=== PATIENT | female | born 1965 | race Caucasian/White ===

== ENCOUNTER 2017-01-16 15:45 | Emergency (ER) | payer OTHER ==
[~2017-01-16 15:45] MED LIST: CHLO10CA2 PO; FOLI1TAB4 PO; LOTR15T TOPICAL; PERC10TA27 PO; VITA100T2 PO; ZITH250T PO
[2017-01-16 17:24] VITALS: BP 147/76; PULSE 94; RESP 18; TEMP 100.4; O2SAT 95
[2017-01-16] MEDS ORDERED: SODIUM CHLOR 0.9% 1000 ML INJ 1,000 ML IV ONE (17:31)
[2017-01-16] MEDS ORDERED: SODIUM CHLOR 0.9% 1000 ML INJ 800 ML IV ONE (17:31)
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
[2017-01-16 17:36] VITALS: O2SAT 94
[2017-01-16] MEDS ORDERED: IBUPROFEN 800 MG TAB PO ONE (17:45)
--- NOTE | 2017-01-16 17:56 | RADRPT ---
EXAM DATE/TIME: 01/16/2017 17:28 [facility] COMPARISON: CHEST SINGLE AP, June 01, 2013, 15:42. INDICATIONS : Short of breath MEDICAL HISTORY : None. SURGICAL HISTORY : None. ENCOUNTER: Initial ACUITY: 1 day PAIN SCORE: 0/10 LOCATION: chest FINDINGS: Single AP view of the chest. Hazy right lower lung opacity suggesting atelectasis versus mild consoli dation. Mild central pulmonary vasculature prominence. Cardiomediastinal silhouette within normal martinez its. No evidence of pleural effusion or pneumothorax. CONCLUSION: Right lower lobe atelectasis versus mild consolidation. Mild pulmonary vascular congestio n. Quentin Genao MD on January 16, 2017 at 17:53 Board Certified Radiologist. This report was verified electronically.
[2017-01-16 18:02] LABS: BASOPHIL % 0.3 % (0.0-2.0); EOSINOPHIL % 0.1 % (0.0-4.0); HEMATOCRIT 34.1 % (35.0-46.0); HEMO FLAGS DIFF FINAL; LYMPHOCYTE # 1.1 TH/MM3 (1.0-4.8); MEAN CORPUSCULAR HEMOGLOBIN 32.7 PG (27.0-34.0); MEAN CORPUSCULAR HGB CONC 33.7 % (32.0-36.0); MONO % 8.2 % (0.0-8.0); NEUT % 81.4 % (16.0-70.0); PLATELET COUNT 191 TH/MM3 (150-450); RED BLOOD COUNT 3.52 MIL/MM3 (4.00-5.30); RED CELL DISTRIBUTION WIDTH 12.8 % (11.6-17.2); WHITE BLOOD COUNT 11.1 TH/MM3 (4.0-11.0)
[2017-01-16 18:04] LABS: BLOOD, URINE NEG (NEG); COMMENT (UR) CULT NOT INDICATED; CULTURE IF INDICATED CULT NOT INDICATED; GLUCOSE,URINE NEG (NEG); KETONE, URINE NEG (NEG); NITRITE,URINE NEG (NEG); PH, URINE 5.5 (5.0-8.5); SQUAMOUS EPITHELIAL CELL URINE <1 /hpf (0-5); URINE COLOR YELLOW (YELLW/STRAW)
[2017-01-16 18:06] LABS: APTT (PATIENT) 32.7 SEC (24.3-30.1); PROTHROMBIN TIME - PATIENT 11.1 SEC (9.8-11.6)
[2017-01-16 18:15] LABS: ALT (GPT) 62 U/L (10-53); ANION GAP 8 MEQ/L (5-15); AST (GOT) 57 U/L (15-37); BICARBONATE 25.4 MEQ/L (21.0-32.0); BLOOD UREA NITROGEN 6 MG/DL (7-18); CHLORIDE 102 MEQ/L (98-107); GLOMERULAR FILTRATION RATE 108 ML/MIN (>89); MAGNESIUM 1.9 MG/DL (1.5-2.5); POTASSIUM 3.8 MEQ/L (3.5-5.1); SODIUM (NA) 135 MEQ/L (136-145)
[2017-01-16 18:20] LABS: ALKALINE PHOSPHATASE 79 U/L (45-117); TOTAL BILIRUBIN ADULT 0.5 MG/DL (0.2-1.0)
[2017-01-16 18:25] LABS: CREATINE KINASE 73 U/L (26-192)
[2017-01-16] MEDS ORDERED: methylPREDNISolone SOD SUCC 125 MG/2 ML VIAL IV PUSH ONE (18:45)
[2017-01-16] MEDS ORDERED: RESP: ALBUTEROL 2.5 MG/IPRATROPIUM 0.5 MG NEB (SCH) NEB ONE (18:45)
[2017-01-16 19:16] VITALS: BP 118/67; TEMP 98.8
[2017-01-16] MEDS ORDERED: PROM25TA5 PO (19:17)
[2017-01-16] MEDS ORDERED: ZITHTAB PO (19:17)
[2017-01-16] MEDS ORDERED: PRED50 PO (19:17)
[2017-01-16] MEDS ORDERED: ALBUAER3 INH (19:17)
--- NOTE | 2017-01-17 16:57 | EKG ---
Date Performed: 01/16/2017 Time Performed: 17:53:07 PTAGE: 51 years EKG: Sinus rhythm NONSPECIFIC T-WAVE ABNORMALITY BORDERLINE ECG Compared to prior tracing no significant change PREVIOUS TRACING : 06/08/2013 05.19 DOCTOR: Helen Burgos Interpretating Date/Time 01/17/2017 16:55:51
== END 2017-01-16 19:31 | disposition home or self-care (01) ==
LOC: NEPE 15:45
DX: J18.1 Lobar pneumonia, unspecified organism (principal); R11.2 Nausea with vomiting, unspecified; F17.210 Nicotine dependence, cigarettes, uncomplicated; R94.31 Abnormal electrocardiogram [ECG] [EKG]
CPT/HCPCS: 71010; 80053; 81001; 82550; 83690; 83735; 84484; 85025; 85610; 85730; 87040; 87804; 93005; 94664; 96361; 96374; 99284; J2930; J7030

== ENCOUNTER 2017-01-31 12:27 | Emergency (ER) | payer OTHER ==
[~2017-01-31] VITALS: Ht 177.8 cm; Wt 84.0 kg
[~2017-01-31 12:27] MED LIST changes: +ALBUAER3 INH; +PRED50 PO; +PROM25TA5 PO; +ZITHTAB PO
[2017-01-31 12:45] VITALS: BP 216/127; PULSE 70; RESP 24; TEMP 97.8; O2SAT 100
--- NOTE | 2017-01-31 12:57 | PD ---
Physical Exam Date Seen by Provider: Jan 31, 2017 Time Seen by Provider: 12:55 Narrative 51 year old female presents to the emergency department for evaluation of abdominal pain since 4am. Patient was seen this morning at [facility]. She has not yet filled her prescriptions. Patient denies any prior abdominal history. Vital signs reviewed. Patient awaiting bed placement. Data Data Last Documented VS Vital Signs Date Time Temp Pulse Resp B/P Pulse Ox O2 Delivery O2 Flow Rate FiO2 01/31/17 12:45 97.8 70 24 216/[address] [facility] Supervised Visit with SYBIL: Naila Pandey Jan 31, 2017 12:57
[2017-01-31] MEDS ORDERED: HYDROmorphone HCL PF 1 MG/ML VIAL IV PUSH ONE (13:15)
[2017-01-31] MEDS ORDERED: ONDANSETRON HCL 4 MG/2 ML VIAL IV PUSH ONE (13:15)
[2017-01-31] MEDS ORDERED: SODIUM CHLOR 0.9% 1000 ML INJ 1,000 ML IV ONE (13:15)
[2017-01-31 13:49] LABS: AUTOMATED NEUTROPHIL # 4.4 TH/MM3 (1.8-7.7); BASOPHIL % 0.3 % (0.0-2.0); HEMO FLAGS DIFF FINAL; LYMPH % 14.9 % (9.0-44.0); LYMPHOCYTE # 0.9 TH/MM3 (1.0-4.8); MEAN CELL VOLUME 98.1 FL (80.0-100.0); MEAN CORPUSCULAR HEMOGLOBIN 33.1 PG (27.0-34.0); MEAN CORPUSCULAR HGB CONC 33.8 % (32.0-36.0); MONO % 7.2 % (0.0-8.0); NEUT % 77.6 % (16.0-70.0); PLATELET COUNT 222 TH/MM3 (150-450); RED BLOOD COUNT 4.19 MIL/MM3 (4.00-5.30); RED CELL DISTRIBUTION WIDTH 13.5 % (11.6-17.2); WHITE BLOOD COUNT 5.7 TH/MM3 (4.0-11.0)
[2017-01-31 14:00] VITALS: BP 150/82; PULSE 86; RESP 18; TEMP 97.8; O2SAT 98
[2017-01-31 14:04] LABS: ANION GAP 5 MEQ/L (5-15); AST (GOT) 86 U/L (15-37); BICARBONATE 29.1 MEQ/L (21.0-32.0); BLOOD UREA NITROGEN 14 MG/DL (7-18); CHLORIDE 106 MEQ/L (98-107); GLOMERULAR FILTRATION RATE 71 ML/MIN (>89); POTASSIUM 3.9 MEQ/L (3.5-5.1); SODIUM (NA) 140 MEQ/L (136-145)
[2017-01-31 14:07] LABS: ALKALINE PHOSPHATASE 81 U/L (45-117); ALT (GPT) 73 U/L (10-53); TOTAL BILIRUBIN ADULT 0.6 MG/DL (0.2-1.0)
[2017-01-31] MEDS ORDERED: ATROPINE/SCOPOLAM/HYOSCYAM/PB ELIXIR 10 ML CUP PO ONE (15:45)
[2017-01-31] MEDS ORDERED: ALUMINUM/MAGNESIUM/SIMETH 30 ML CUP PO ONE (15:45)
[2017-01-31] MEDS ORDERED: LIDOCAINE VISCOUS 2% SOLN 15 ML UDC SWISH-SWAL ONE (15:45)
--- NOTE | 2017-01-31 16:27 | RADRPT ---
EXAM DATE/TIME: 01/31/2017 16:03 [facility] COMPARISON: No previous studies available for comparison. INDICATIONS : Abdominal pain with vomiting. ORAL CONTRAST: No oral contrast ingested. RADIATION DOSE: 9.96 CTDIvol (mGy) MEDICAL HISTORY : None SURGICAL HISTORY : Appendectomy. Right hip sx. ENCOUNTER: Initial ACUITY: 1 day PAIN SCALE: 10/10 LOCATION: Bilateral upper quadrant TECHNIQUE: Volumetric scanning of the abdomen and pelvis was performed. Using automated exposure control and ad justment of the mA and/or kV according to patient size, radiation dose was kept as low as reasonably achievable to obtain optimal diagnostic quality images. FINDINGS: LOWER LUNGS: The visualized lower lungs are clear. LIVER: Homogeneous density without lesion. There is no dilation of the biliary tree. No calcified gallston es. SPLEEN: Normal size without lesion. PANCREAS: Within normal limits. KIDNEYS: Normal in size and shape. There is no mass, stone, or hydronephrosis. ADRENAL GLANDS: Within normal limits. VASCULAR: There is no aortic aneurysm. BOWEL/MESENTERY: The stomach, small bowel, and colon demonstrate no acute abnormality. There is no free intraperitone al air or fluid. ABDOMINAL WALL: Within normal limits. RETROPERITONEUM: There is no lymphadenopathy. BLADDER: No wall thickening or mass. REPRODUCTIVE: Within normal limits. INGUINAL: There is no lymphadenopathy or hernia. MUSCULOSKELETAL: Within normal limits for patient age. CONCLUSION: No acute disease. Arnie Vasquez MD on January 31, 2017 at 16:23 Board Certified Radiologist. This report was verified electronically.
[2017-01-31] MEDS ORDERED: ZOFR4TAB3 SL (16:46)
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
[2017-01-31 17:15] VITALS: BP 148/77; TEMP 97.8
== END 2017-01-31 17:15 | disposition home or self-care (01) ==
LOC: NEPD 12:27
DX: K29.20 Alcoholic gastritis without bleeding (principal); R11.10 Vomiting, unspecified; F17.210 Nicotine dependence, cigarettes, uncomplicated
CPT/HCPCS: 74176; 80053; 83690; 85025; 96361; 96374; 96375; 99284; J1170; J2405; J7030

== ENCOUNTER 2017-01-31 18:11 | Inpatient (IN) | payer OTHER ==
[~2017-01-31] VITALS: Ht 177.8 cm; Wt 78.9 kg
[~2017-01-31 18:11] MED LIST changes: +ZOFR4TAB3 SL
[2017-01-31 18:14] VITALS: BP 224/131; PULSE 77; RESP 24; TEMP 97.9; O2SAT 100
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
[2017-01-31] MEDS ORDERED: SODIUM CHLOR 0.9% 1000 ML INJ 1,000 ML IV SCH (19:59)
[2017-01-31] MEDS ORDERED: THIAMINE INJ 100 MG in SODIUM CHLORIDE 0.9% INJ 100 ML IV ONE (20:00)
[2017-01-31] MEDS ORDERED: SODIUM CHLORIDE 0.9% FLUSH 10 ML FLUSH IVF PRN (20:00)
[2017-01-31] MEDS ORDERED: LORazepam 2 MG/ML VIAL ONE ×2 (20:04→20:20)
[2017-01-31] MEDS ORDERED: LORazepam 2 MG/ML VIAL IV PUSH ONE ×2 (20:30)
--- NOTE | 2017-01-31 20:36 | RADRPT ---
EXAM DATE/TIME: 01/31/2017 19:26 [facility] COMPARISON: CT ABDOMEN & PELVIS W/O CONTRAST, January 31, 2017, 16:03. INDICATIONS : Altered mental status. RADIATION DOSE: 36.57 CTDIvol (mGy) MEDICAL HISTORY : None SURGICAL HISTORY : None. ENCOUNTER: Initial ACUITY: 1 day PAIN SCALE: 0/10 LOCATION: cranial TECHNIQUE: Multiple contiguous axial images were obtained of the head. Using automated exposure control and adj ustment of the mA and/or kV according to patient size, radiation dose was kept as low as reasonably a chievable to obtain optimal diagnostic quality images. FINDINGS: CEREBRUM: The ventricles are normal for age. No evidence of midline shift, mass lesion, hemorrhage or acute in farction. No extra-axial fluid collections are seen. POSTERIOR FOSSA: The cerebellum and brainstem are intact. The 4th ventricle is midline. The cerebellopontine angle i s unremarkable. EXTRACRANIAL: The visualized portion of the orbits is intact. SKULL: The calvaria is intact. No evidence of skull fracture. CONCLUSION: Normal examination. Ezekiel Ashley MD on January 31, 2017 at 20:33 Board Certified Radiologist. This report was verified electronically.
[2017-01-31 20:41] VITALS: BP 160/93; PULSE 82; RESP 26; O2SAT 98
[2017-01-31 20:56] LABS: AUTOMATED NEUTROPHIL # 5.4 TH/MM3 (1.8-7.7); BASOPHIL % 0.2 % (0.0-2.0); HEMATOCRIT 43.6 % (35.0-46.0); HEMO FLAGS DIFF FINAL; LYMPH % 26.5 % (9.0-44.0); LYMPHOCYTE # 2.4 TH/MM3 (1.0-4.8); MEAN CELL VOLUME 100.5 FL (80.0-100.0); MEAN CORPUSCULAR HEMOGLOBIN 33.7 PG (27.0-34.0); MEAN CORPUSCULAR HGB CONC 33.5 % (32.0-36.0); MONO % 13.1 % (0.0-8.0); NEUT % 60.2 % (16.0-70.0); PLATELET COUNT 282 TH/MM3 (150-450); RED BLOOD COUNT 4.34 MIL/MM3 (4.00-5.30); RED CELL DISTRIBUTION WIDTH 14.2 % (11.6-17.2)
[2017-01-31 21:00] VITALS: BP 158/88; PULSE 92; RESP 18; O2SAT 100
[2017-01-31 21:09] LABS: AMPHETAMINE, URINE NEG (NEG); BARBITURATES, URINE NEG (NEG); COCAINE, URINE NEG (NEG)
[2017-01-31 21:10] LABS: BLOOD, URINE TRACE (NEG); GLUCOSE,URINE TRACE mg/dL (NEG); HYALINE CAST, URINE 2 /lpf (RARE); KETONE, URINE TRACE mg/dL (NEG); NITRITE,URINE NEG (NEG); PH, URINE 6.5 (5.0-8.5); URINE COLOR YELLOW (YELLW/STRAW)
[2017-01-31 21:11] LABS: APTT (PATIENT) 27.4 SEC (24.3-30.1); PROTHROMBIN TIME - PATIENT 10.9 SEC (9.8-11.6)
[2017-01-31 21:15] LABS: COMMENT (UR) CATH-CULT NOT IND; CULTURE IF INDICATED CATH CULTURE NOT IND
[2017-01-31 21:59] LABS: ACETAMINOPHEN LESS THAN 2.0 MCG/ML (10.0-30.0); ALKALINE PHOSPHATASE 84 U/L (45-117); ALT (GPT) 72 U/L (10-53); ANION GAP 11 MEQ/L (5-15); AST (GOT) 80 U/L (15-37); BICARBONATE 24.5 MEQ/L (21.0-32.0); BLOOD UREA NITROGEN 11 MG/DL (7-18); CHLORIDE 102 MEQ/L (98-107); GLOMERULAR FILTRATION RATE 54 ML/MIN (>89); POTASSIUM 4.1 MEQ/L (3.5-5.1); SODIUM (NA) 137 MEQ/L (136-145); TOTAL BILIRUBIN ADULT 0.5 MG/DL (0.2-1.0)
[2017-01-31 22:00] VITALS: PULSE 96; RESP 18; O2SAT 100
--- NOTE | 2017-01-31 23:03 | HHI.HP ---
HPI Service Critical Care Medicine Primary Care Physician No Primary Care Physician Admission Diagnosis Alcohol withdrawal seizure. Diagnosis: Chief Complaint: altered mental status Travel History International Travel<30 Days: No Contact w/Intl Traveler <30 Da: No Traveled to Known Affected Are: No History of Present Illness This is a 51yF who presented to the ED earlier in the day with abdominal pain and was diagnosed with alcoholic gastritis. She was discharged. She represents this evening with visual hallucinations. While she was in the emergency department getting worked up for this, she had a witnessed seizure event. It lasted maybe 30 seconds and subsided on its own. She was given Ativan IV. She did endorse to the emergency room physician that she has stopped drinking [address] head is normal. Her laboratory values are all reassuring. When I evaluated the patient, she is lying on her side, awake and alert, but is refusing to participate in the history. She will answer any of my questions. She does say she is not in pain. Critical-care medicine is consulted to evaluate and manage probable seizures associated with alcohol withdrawal. The remainder of the history was presented to me by the ER physician. Review of Systems ROS Limitations: Uncooperative, Refused Past Family Social History Allergies: Coded Allergies: No Known Allergies (Verified , 01/31/17) Past Medical History Patient will not participate in giving a past medical history. Per chart review : GERD Chronic knee and back pain Alcohol dependence Past Surgical History Patient will not participate in giving a past surgical history. Per chart review: Appendectomy Reported Medications Patient will not participate in giving a home medication list. Per chart review : Zofran Odt (Ondansetron Odt) 4 Mg Tab 4 Mg SL Q6HR PRN Percocet (Oxycodone-Acetaminophen) 10-325 mg Tab 1 Tab PO Q6H PRN Active Ordered Medications See MAR Family History The patient is not participating in my exam and will not provide a family history. It is unlikely to be contributory to her acute illness. Social History Patient refuses to participate in getting a social history. Per chart review: Drinks sixpack daily, one pack per day smoker Physical Exam Vital Signs Vital Signs Date Time Temp Pulse Resp B/P Pulse Ox O2 Delivery O2 Flow Rate FiO2 01/31/17 20:41 82 26 160/93 98 01/31/17 18:38 16 01/31/17 18:14 97.9 77 24 224/131 100 Room Air Physical Exam GENERAL: Middle-aged female, lying in bed on her side, in no acute distress. HEENT: Normocephalic. Atraumatic. Pupils equal, reactive, round, conjugate. Mucous membranes are moist. NECK: Trachea is midline. There is no JVD. CHEST: Unlabored. Equal chest rise. Clear to auscultation. CARDIOVASCULAR: Rate, regular rhythm. No appreciable murmurs ABDOMEN: Soft, nontender, nondistended. No guarding MUSCULOSKELETAL: Peripheral edema. Distal pulses 2+. NEUROLOGICAL: RASS -1. She clinically appears to protecting her airway. She is awake and will look at me when asked. Unfortunately, she is refusing to participate in my physical exam, and thus will not follow commands. She withdraws to pain. Laboratory Laboratory Tests Test 01/31/17 01/31/17 20:30 21:25 White Blood Count 9.0 Red Blood Count 4.34 Hemoglobin 14.6 Hematocrit 43.6 Mean Corpuscular Volume 100.5 Mean Corpuscular Hemoglobin 33.7 Mean Corpuscular Hemoglobin 33.5 Concent Red Cell Distribution Width 14.2 Platelet Count 282 Mean Platelet Volume 8.0 Neutrophils (%) (Auto) 60.2 Lymphocytes (%) (Auto) 26.5 Monocytes (%) (Auto) 13.1 Eosinophils (%) (Auto) 0.0 Basophils (%) (Auto) 0.2 Neutrophils # (Auto) 5.4 Lymphocytes # (Auto) 2.4 Monocytes # (Auto) 1.2 Eosinophils # (Auto) 0.0 Basophils # (Auto) 0.0 CBC Comment DIFF FINAL Differential Comment Prothrombin Time 10.9 Prothromb Time International 1.0 Ratio Activated Partial 27.4 Thromboplast Time Urine Color YELLOW Urine Turbidity CLEAR Urine pH 6.5 Urine Specific [place] 1.015 Urine Protein 100 Urine Glucose (UA) TRACE Urine Ketones TRACE Urine Occult Blood TRACE Urine Nitrite NEG Urine Bilirubin NEG Urine Urobilinogen LESS THAN 2.0 Urine Leukocyte Esterase NEG Urine RBC 1 Urine WBC 2 Urine Hyaline Casts 2 Microscopic Urinalysis Comment CATH-CULT NOT IND Urine Opiates Screen NEG Urine Barbiturates Screen NEG Urine Amphetamines Screen NEG Urine Benzodiazepines Screen NEG Urine Cocaine Screen NEG Urine Cannabinoids Screen NEG Sodium Level 137 Potassium Level 4.1 Chloride Level 102 Carbon Dioxide Level 24.5 Anion Gap 11 Blood Urea Nitrogen 11 Creatinine 1.08 Estimat Glomerular Filtration 54 Rate Random Glucose 120 Calcium Level 8.8 Total Bilirubin 0.5 Aspartate Amino Transf 80 (AST/SGOT) Alanine Aminotransferase 72 (ALT/SGPT) Alkaline Phosphatase 84 Ammonia 35 Total Protein 9.2 Albumin 3.7 Salicylates Level LESS THAN 1.7 Acetaminophen Level LESS THAN 2.0 Ethyl Alcohol Level LESS THAN 3 Result Diagram: 01/31/17202901/31/175 Imaging Last Impressions Head CT 01/31/17 0000 Signed Impressions: Service Date/Time: Tuesday, January 31, 2017 19:26 - CONCLUSION: Normal examination. Ezekiel Ashley MD Assessment and Plan Assessment and Plan Assessment: This is a 51-year-old female with recent history of abdominal pain diagnosed with alcoholic gastritis and now presents with altered mental status and seizures in the setting of acute alcohol withdrawal syndrome. I think given that the patient does not have any prior history of seizure, we will proceed with MRI and EEG. However, given the time course, this most likely is alcohol withdrawal seizures, and most likely will improve with reinstitution of benzodiazepines. We will monitor her closely in the intensive care unit and transition her to Librium and Ativan on [facility] protocol. Plan: 1. Seizures -- likely secondary to etoh withdraw -- ativan prn for seizures -- seizure precautions -- EEG -- MRI -- 01/31 CT head negative for acute disease 2. Alcohol Withdraw -- [facility] protocol -- Librium 50mg po q8h -- ativan prn 3. Alcohol Dependence -- iv thiamine and mvi -- withdraw treatment as above. 4. Alcoholic gastritis -- previously diagnosed. -- iv ppi. 5. Metabolic Encephalopathy -- ammonia level nominally elevated. will not add Lactulose at this time -- frequent neuro checks in the ICU. could likely downgrade to the floor tomorrow. -- nursing bedside swallow evaluation. if she passes, advance to clear liquid diet, then advance as tolerated. if she fails, NPO with formal swallow eval. SCDs, Lovenox, ppi for ppx. Dispo: admit to the ICU. if she stabilizes, could transfer to floor in the AM. consult hospitalists. Code Status Full Code Bg Grijalva MD Jan 31, 2017 23:03
[2017-01-31] MEDS ORDERED: POTASSIUM PHOSPHATE INJ 30 MMOL in SODIUM CHLOR 0.9% 250 ML INJ 250 ML IV PRN (23:15)
[2017-01-31] MEDS ORDERED: MAGNESIUM OXIDE 400 MG TAB PO PRN (23:15)
[2017-01-31] MEDS ORDERED: RESP: ALBUTEROL 2.5 MG/IPRATROPIUM 0.5 MG NEB (PRN) INH (23:15)
[2017-01-31] MEDS ORDERED: CHLORHEXIDINE GLUCONATE 2 % 1 PACK (2 CLOTHS) TOP PRN (23:15)
[2017-01-31] MEDS ORDERED: MAGNESIUM SULFATE INJ 2 GM in SODIUM CHLORIDE 0.9% INJ 96 ML IV PRN (23:15)
[2017-01-31] MEDS ORDERED: MULTIVITAMIN INJ 10 ML, THIAMINE INJ 100 MG, FOLIC ACID INJ 1 MG in SODIUM CHLOR 0.45% ... IV ONE (23:15)
[2017-01-31] MEDS ORDERED: FLUMAZENIL 0.5 MG/5 ML VIAL IV PUSH PRN (23:15)
[2017-01-31] MEDS ORDERED: LORazepam 2 MG/ML VIAL IV PUSH PRN ×4 (23:15)
[2017-01-31] MEDS ORDERED: MISCELLANEOUS NURSING INFORMATION XX SCH (23:15)
[2017-01-31] MEDS ORDERED: POTASSIUM PHOSPHATE MONOBASIC 500 MG TAB PO PRN (23:15)
[2017-01-31] MEDS ORDERED: POTASSIUM CHLOR 40 MEQ PREMIX 100 ML IV PRN ×2 (23:15)
[2017-01-31] MEDS ORDERED: POTASSIUM PHOSPHATE MONOBASIC 500 MG TAB PO/TUBE PRN (23:15)
[2017-01-31] MEDS ORDERED: MAGNESIUM SULFATE INJ 4 GM in SODIUM CHLORIDE 0.9% INJ 92 ML IV PRN (23:15)
[2017-01-31] MEDS ORDERED: POTASSIUM CHLOR 20 MEQ PREMIX 100 ML IV PRN (23:15)
[2017-01-31] MEDS ORDERED: SODIUM CHLORIDE 0.9% FLUSH 10 ML FLUSH IV FLUSH PRN ×2 (23:15)
[2017-01-31] MEDS ORDERED: DEXTROSE 50% IN WATER 50 ML VIAL(D50) IV PUSH PRN (23:15)
[2017-01-31] MEDS ORDERED: LORazepam 2 MG TAB PO PRN (23:15)
[2017-01-31] MEDS ORDERED: SODIUM PHOSPHATE INJ 30 MMOL in SODIUM CHLOR 0.9% 250 ML INJ 240 ML IV PRN (23:15)
[2017-01-31] MEDS: THIAMINE INJ 100 MG in SODIUM CHLORIDE 0.9% INJ 100 ML IV SCH (23:56)
[2017-02-01] VITALS (16 sets, daily range): BP systolic 90–189; BP diastolic 82–123; PULSE 77–104; RESP 12–20; TEMP 98.2–102; O2SAT 97–100
[2017-02-01] MEDS: THIAMINE INJ 100 MG in SODIUM CHLORIDE 0.9% INJ 100 ML IV SCH (00:41)
[2017-02-01] MEDS: ENOXAPARIN SODIUM 40 MG/0.4 ML SYRINGE SQ SCH ×2 (00:41→23:15)
[2017-02-01] MEDS: PANTOPRAZOLE SODIUM 40 MG VIAL IV PUSH SCH (00:48)
[2017-02-01] MEDS: INSULIN NovoLIN REGULAR SUPPLEMENTAL SCALE SQ SCH ×5 (03:00→21:00)
[2017-02-01] MEDS: chlordiazePOXIDE 25 MG CAP PO SCH ×4 (03:01→23:12)
[2017-02-01] MEDS: CHLORHEXIDINE GLUCONATE 2 % 1 PACK (2 CLOTHS) TOP SCH (03:13)
[2017-02-01] MEDS ORDERED: ACETAMINOPHEN 325 MG TAB PO PRN (03:15)
[2017-02-01] MEDS: SODIUM CHLOR 0.9% 1000 ML INJ 1,000 ML IV SCH ×3 (03:39→23:13)
[2017-02-01 05:10] LABS: HEMATOCRIT 41.9 % (35.0-46.0); MEAN CELL VOLUME 98.6 FL (80.0-100.0); MEAN CORPUSCULAR HEMOGLOBIN 33.1 PG (27.0-34.0); MEAN CORPUSCULAR HGB CONC 33.6 % (32.0-36.0); PLATELET COUNT 215 TH/MM3 (150-450); RED BLOOD COUNT 4.24 MIL/MM3 (4.00-5.30); RED CELL DISTRIBUTION WIDTH 14.1 % (11.6-17.2); REVIEW FLAG FINAL; WHITE BLOOD COUNT 8.7 TH/MM3 (4.0-11.0)
[2017-02-01 05:32] LABS: BICARBONATE 23.8 MEQ/L (21.0-32.0); POTASSIUM 3.3 MEQ/L (3.5-5.1)
[2017-02-01] MEDS ORDERED: SODIUM CHLORIDE 0.9% FLUSH 10 ML FLUSH IV FLUSH SCH (09:00)
[2017-02-01] MEDS: SODIUM CHLORIDE 0.9% FLUSH 10 ML FLUSH IV FLUSH SCH ×2 (09:00→21:07)
--- NOTE | 2017-02-01 09:01 | HHI.PR ---
Subjective Remarks in no acute distress. had a fever last night. no seizures over night. BP noted that was uncontrolled over night. d/w the RN. Objective Vitals Vital Signs Date Time Temp Pulse Resp B/P Pulse Ox O2 Delivery O2 Flow Rate FiO2 02/01/17 05:00 92 02/01/17 04:00 98.9 92 16 187/113 100 02/01/17 03:00 98 02/01/17 02:34 102.0 100 20 186/117 100 02/01/17 01:53 100.8 101 18 189/91 99 Room Air 02/01/17 01:15 100.6 02/01/17 00:26 148/82 02/01/17 00:00 104 18 99 01/31/17 22:00 96 18 100 01/31/17 21:00 92 18 158/88 100 01/31/17 20:41 82 26 160/93 98 01/31/17 18:38 16 01/31/17 18:14 97.9 77 24 224/131 100 Room Air I/O 01/31/17 01/31/17 01/31/17 02/01/17 02/01/17 02/01/17 07:00 15:00 23:00 07:00 15:00 23:00 Intake Total 1556 ml Output Total 850 ml Balance 706 ml Intake Oral 180 ml IV Total 1376 ml Output Urine Total 850 ml # Bowel Movements 0 Result Diagram: 02/01/17 0448 02/01/17 0448 Imaging Last Impressions Head CT 01/31/17 0000 Signed Impressions: Service Date/Time: Tuesday, January 31, 2017 19:26 - CONCLUSION: Normal examination. Ezekiel Ashley MD Objective Remarks GENERAL: This is a well-nourished, well-developed patient, in no apparent distress. Neck; no neck stiffness CARDIOVASCULAR: Regular rate and regular rhythm without murmurs, gallops, or rubs. RESPIRATORY: Clear to auscultation. Breath sounds equal bilaterally. No wheezes , rales, or rhonchi. GASTROINTESTINAL: Abdomen soft, non-tender, nondistended. Normal, active bowel sounds MUSCULOSKELETAL: Extremities without clubbing, cyanosis, or edema. NEURO: Alert & Oriented x4 to person, place, time, situation. Moves all ext x4 Procedures none Medications and IVs Current Medications Sodium Chloride 2 ml 2 ml UNSCH PRN IVF FLUSH AFTER USING IV ACCESS; Start at 20:00 Sodium Chloride 1,000 ml @ 1,000 mls/hr Q1H IV Last administered on 01/31/17 21:37; Start 01/31/17 at 19:59; Stop 01/31/17 at 20:58; Status DC Thiamine HCl/ Sodium Chloride (Thiamine Inj/NS Inj) 101 ml @ 100 mls/hr ONCE ONCE IV Last administered on 01/31/17 21:38; Start 01/31/17 at 20:00; Stop at 21:00; Status DC Lorazepam (Ativan Inj) 2 mg STK-MED ONCE .ROUTE ; Start 01/31/17 at 20:04; Stop 01/31/17 at 20:05; Status DC Lorazepam (Ativan Inj) 2 mg STK-MED ONCE .ROUTE ; Start 01/31/17 at 20:20; Stop 01/31/17 at 20:21; Status DC Lorazepam (Ativan Inj) 2 mg ONCE ONCE IV PUSH Last administered on 01/31/17 20:51; Start 01/31/17 at 20:30; Stop 01/31/17 at 20:34; Status DC Lorazepam (Ativan Inj) 2 mg ONCE ONCE IV PUSH Last administered on 01/31/17 20:52; Start 01/31/17 at 20:30; Stop 01/31/17 at 20:34; Status DC Magnesium Oxide 800 mg 800 mg UNSCH PRN PO For Magnesium 1.2 - 1.6 mg/dL; Start 01/31/17 at 23:15 Magnesium Sulfate 4 gm/Sodium Chloride 100 ml @ 50 mls/hr UNSCH PRN IV For Magnesium 0.9 - 1.1 mg/dL; Start 01/31/17 at 23:15 Magnesium Sulfate 2 gm/Sodium Chloride 100 ml @ 50 mls/hr UNSCH PRN IV For Magnesium 1.2 - 1.6 mg/dL; Start 01/31/17 at 23:15 Potassium Chloride 100 ml @ 50 mls/hr Q2H PRN IV For Potassium 2.8 - 3.2 mEq/L ; Start 01/31/17 at 23:15 Potassium Chloride 100 ml @ 50 mls/hr Q2H PRN IV For Potassium 3.3 - 3.5 mEq/L ; Start 01/31/17 at 23:15 Potassium Chloride 100 ml @ 50 mls/hr Q2H PRN IV For Potassium 2.8 - 3.2 mEq/L ; Start 01/31/17 at 23:15 Potassium Chloride (KCl 40 Meq Premix Inj) 100 ml @ 25 mls/hr UNSCH PRN IV For Potassium 3.3 - 3.5 mEq/L; Start 01/31/17 at 23:15 Potassium Phosphate (K-Phos) 2,000 mg Q4H PRN PO For Phosphorus < 2.5 mg/dL; Start 01/31/17 at 23:15 Potassium Phosphate 2000 mg 2,000 mg UNSCH PRN PO/TUBE SEE LABEL COMMENTS; Start 01/31/17 at 23:15 Potassium Phosphate 30 mmol/ Sodium Chloride 260 ml @ 42 mls/hr UNSCH PRN IV SEE LABEL COMMENTS; Start 01/31/17 at 23:15 Sodium Phosphate/ Sodium Chloride (Sodium Phosphate Inj/NS 250 ml Inj) 250 ml @ 42 mls/hr UNSCH PRN IV For Phosphorus < 2.5 mg/dL; Start 01/31/17 at 23:15 Dextrose (D50w (Vial) Inj) 25 ml UNSCH PRN IV PUSH HYPOGLYCEMIA-SEE COMMENTS; Start 01/31/17 at 23:15 Insulin Human Regular 1 1 ACHS AND 3AM SQ ; Start 02/01/17 at 03:00 Sodium Chloride (NS 1000 ml Inj) 1,000 ml @ 84 mls/hr [id number] IV Last administered on 02/01/17 03:39; Start 01/31/17 at 23:03 Sodium Chloride (NS Flush) 2 ml UNSCH PRN IV FLUSH FLUSH AFTER USING IV ACCESS ; Start 01/31/17 at 23:15 Sodium Chloride (NS Flush) 2 ml BID IV FLUSH ; Start 02/01/17 at 09:00 Ondansetron HCl (Zofran Inj) 4 mg Q6H PRN IV NAUSEA OR VOMITING; Start at 23:15 Albuterol/ Ipratropium (Duoneb Neb) 1 ampule Q2HR NEB PRN INH WHEEZING; Start 01/31/17 at 23:15 Enoxaparin Sodium (Lovenox Inj) 40 mg Q24H SQ Last administered on 02/01/17 00 :41; Start 01/31/17 at 23:15 Miscellaneous Information 1 Q361D XX ; Start 01/31/17 at 23:15 Chlorhexidine Gluconate (Chlorhexidine 2% Cloth) 3 pack Taper DAILY@04 TOP Last administered on 02/01/17 03:13; Start 02/01/17 at 04:00; Stop 01/28/18 at 03:59 Chlorhexidine Gluconate (Chlorhexidine 2% Cloth) 3 pack UNSCH PRN TOP HYGIENIC CARE; Start 01/31/17 at 23:15 Sodium Chloride (NS Flush) 2 ml UNSCH PRN IV FLUSH FLUSH AFTER USING IV ACCESS ; Start 01/31/17 at 23:15; Stop 01/31/17 at 23:24; Status DC Sodium Chloride (NS Flush) 2 ml BID IV FLUSH ; Start 02/01/17 at 09:00; Stop at 09:00; Status DC Flumazenil (Romazicon Inj) 0.2 mg Q1M PRN IV PUSH SEE LABEL COMMENTS; Start at 23:15 Lorazepam (Ativan) 1 mg Q4H PRN PO CIWA 8 - 10; Start 01/31/17 at 23:15 Lorazepam (Ativan Inj) 1 mg Q4H PRN IV PUSH CIWA 8 - 10 Last administered on 04:58; Start 01/31/17 at 23:15 Lorazepam (Ativan) 2 mg Q2H PRN PO CIWA 11-14; Start 01/31/17 at 23:15 Lorazepam (Ativan Inj) 2 mg Q2H PRN IV PUSH CIWA 11-14; Start 01/31/17 at 23:15 Lorazepam (Ativan Inj) 2 mg Q1H PRN IV PUSH CIWA 15-20; Start 01/31/17 at 23:15 Lorazepam (Ativan Inj) 2 mg Q15M PRN IV PUSH CIWA > 20; Start 01/31/17 at 23:15 Chlordiazepoxide 50 mg 50 mg Q8H PO Last administered on 02/01/17 03:01; Start 01/31/17 at 23:15 Thiamine HCl/ Sodium Chloride (Thiamine Inj/NS Inj) 101 ml @ 101 mls/hr Q24H IV Last administered on 02/01/17 00:41; Start 02/01/17 at 01:45; Stop at 02:44 Thiamine HCl 100 mg 100 mg DAILY PO ; Start 02/03/17 at 09:00 Multivitamins/ Thiamine HCl/ Folic Acid/Sodium Chloride (Mvi-12 Inj/ Thiamine Inj/ Folvite Inj/1/2 NS 500 ml Inj) 511.2 ml @ 125 mls/hr ONCE ONCE IV Last administered on 01/31/17 23:55; Start 01/31/17 at 23:15; Stop 02/01/17 at 03:20 ; Status DC Multivitamins (Theragran) 1 tab DAILY PO ; Start 02/02/17 at 09:00 Pantoprazole Sodium (Protonix Inj) 40 mg Q24H IV PUSH Last administered on 02/01 00:48; Start 02/01/17 at 00:45 Acetaminophen (Tylenol) 650 mg Q6H PRN PO pain 1-10 or fever; Start 02/01/17 at 03:15 A/P Assessment and Plan A/P 1. Seizures -- likely secondary to etoh withdrawal -- ativan prn for seizures -- seizure precautions -- EEG -- MRI -- 01/31 CT head negative for acute disease 2. Alcohol Withdrawal -- [facility] protocol -- Librium 50mg po q8h -- ativan prn 3. Alcohol Dependence -- iv thiamine and mvi -- withdrawal treatment as above. 4. Alcoholic gastritis -- previously diagnosed. -- iv ppi. 5. Metabolic Encephalopathy -- ammonia level nominally elevated. will not add Lactulose at this time -- continue neuro checks . 6- fever- likely due to alcohol withdrawal obtain the blood cultures. continue to monitor the temps. 7. elevated BP- likely due to alcohol withdrawal start clonidine prn- will monitor. 8- mild hypokalemia; replace as needed. SCDs, Lovenox, ppi for ppx. transfer to telemetry this evening if no further seizures and remains stable- pending MRI brain. d/w the Tereso Baker MD Feb 01, 2017 09:01
[2017-02-01] MEDS: cloNIDine HCL 0.1 MG TAB PO PRN (12:19)
--- NOTE | 2017-02-01 14:19 | EKG ---
Date Performed: 02/01/2017 Time Performed: 01:48:56 PTAGE: 51 years EKG: Sinus rhythm Since previous tracing, no significant change noted NORMAL ECG PREVIOUS TRACING : 01/16/2017 17.53 DOCTOR: Best Reed Interpretating Date/Time 02/01/2017 14:19:12
--- NOTE | 2017-02-01 19:03 | RADRPT ---
EXAM DATE/TIME: 02/01/2017 17:59 [place] COMPARISON: No previous studies available for comparison. INDICATIONS : Seizures. MEDICAL HISTORY : None. SURGICAL HISTORY : Appendectomy. ENCOUNTER: Initial ACUITY: 1 day PAIN SCORE: 0/10 LOCATION: cranial TECHNIQUE: Multiplanar, multisequence MRI of the brain was performed without contrast. FINDINGS: There is a focal area of slightly increased T2 signal abnormality in the left parietal lobe. This is not associated with any significant signal abnormality on the diffusion weighted images. No abnormali ty on the susceptibility weighted images. No hydrocephalus. No abnormal extra-axial fluid. CONCLUSION: 1. Nonspecific approximately 1 cm T2 signal abnormality in the left parietal lobe. Differential diagn osis includes remote injury or focal area of inflammatory change. Recommend further evaluation with p ostcontrast images. There is no abnormality on diffusion weighted images to suggest recent infarct. Esteban Martino MD on February 01, 2017 at 18:57 Board Certified Radiologist. This report was verified electronically.
[2017-02-01] MEDS: LORazepam 1 MG TAB PO PRN (23:12)
[2017-02-02] VITALS (11 sets, daily range): BP systolic 105–175; BP diastolic 71–111; PULSE 73–86; RESP 18–24; TEMP 97.8–99.1; O2SAT 94–98
[2017-02-02] MEDS: PANTOPRAZOLE SODIUM 40 MG VIAL IV PUSH SCH (00:27)
[2017-02-02] MEDS: THIAMINE INJ 100 MG in SODIUM CHLORIDE 0.9% INJ 100 ML IV SCH (01:47)
[2017-02-02] MEDS: INSULIN NovoLIN REGULAR SUPPLEMENTAL SCALE SQ SCH ×5 (03:00→20:18)
[2017-02-02] MEDS: CHLORHEXIDINE GLUCONATE 2 % 1 PACK (2 CLOTHS) TOP SCH (04:00)
--- NOTE | 2017-02-02 05:04 | MG ---
cc: ARLETTE FERNANDEZ MD Sex: F DATE OF STUDY: 02/01/2017 [id number] DATE OF : 1965 HISTORY: A 51 year-old with history of hallucinations, possible seizure. 8-9 Hz posterior rhythm, 10-30 microvolts with attenuation theta activity. Good EEG variability reactivity, however, moderate amount of myogenic artifact present, body movement artifact. Single lead EKG showing sinus rhythm. INTERPRETATION Normal EEG, however, moderate amount of myogenic and electrical artifact occurring at times. Clinical correlation. Arlette Fernandez MD MG/MEGAN /11:24 PM /3:58 AM
[2017-02-02] MEDS: ONDANSETRON HCL 4 MG/2 ML VIAL IV PRN (05:16)
[2017-02-02 05:25] LABS: HEMATOCRIT 41.6 % (35.0-46.0); MEAN CELL VOLUME 99.6 FL (80.0-100.0); MEAN CORPUSCULAR HEMOGLOBIN 32.8 PG (27.0-34.0); MEAN CORPUSCULAR HGB CONC 32.9 % (32.0-36.0); PLATELET COUNT 193 TH/MM3 (150-450); RED BLOOD COUNT 4.17 MIL/MM3 (4.00-5.30); RED CELL DISTRIBUTION WIDTH 13.6 % (11.6-17.2); REVIEW FLAG FINAL; WHITE BLOOD COUNT 4.6 TH/MM3 (4.0-11.0)
[2017-02-02 05:47] LABS: BICARBONATE 23.8 MEQ/L (21.0-32.0); POTASSIUM 3.1 MEQ/L (3.5-5.1)
[2017-02-02] MEDS: LORazepam 1 MG TAB PO PRN (06:20)
[2017-02-02] MEDS: SODIUM CHLORIDE 0.9% FLUSH 10 ML FLUSH IV FLUSH SCH ×2 (08:40→20:17)
[2017-02-02] MEDS: chlordiazePOXIDE 25 MG CAP PO SCH (08:40)
[2017-02-02] MEDS: cloNIDine HCL 0.1 MG TAB PO PRN (08:40)
[2017-02-02] MEDS: MULTIVITAMIN TAB PO SCH (08:40)
[2017-02-02] MEDS: POTASSIUM CHLOR 20 MEQ PREMIX 100 ML IV PRN ×3 (09:35→16:07)
--- NOTE | 2017-02-02 09:37 | HHI.PR ---
Subjective Remarks in no acute distress. has some headache and nausea. afebrile today. BP is better. no seizures overnight. d/w the RN. Objective Vitals Vital Signs Date Time Temp Pulse Resp B/P Pulse Ox O2 Delivery O2 Flow Rate FiO2 02/02/17 06:00 83 02/02/17 04:00 79 02/02/17 04:00 98.3 79 22 144/91 02/02/17 02:00 77 02/02/17 00:00 98.4 77 20 121/85 02/02/17 00:00 77 02/01/17 22:00 80 02/01/17 20:00 98.6 02/01/17 20:00 98.6 77 20 90/ 02/01/17 20:00 77 02/01/17 18:00 79 02/01/17 16:00 83 02/01/17 16:00 98.2 82 20 129/85 97 02/01/17 14:00 87 02/01/17 12:00 98.8 86 12 172/123 98 02/01/17 12:00 90 02/01/17 10:00 85 I/O 02/01/17 02/01/17 02/01/17 02/02/17 02/02/17 02/02/17 07:00 15:00 23:00 07:00 15:00 23:00 Intake Total 1556 ml 1214 ml 654 ml 943 ml Output Total 850 ml 2100 ml 500 ml Balance 706 ml -886 ml 654 ml 443 ml Intake Oral 180 ml 480 ml 300 ml 600 ml IV Total 1376 ml 734 ml 354 ml 343 ml Output Urine Total 850 ml 2100 ml 500 ml # Bowel Movements 0 1 Result Diagram: 02/02/17 0440 02/02/17 0440 Imaging Last Impressions Brain MRI 02/01/17 0000 Signed Impressions: Service Date/Time: Wednesday, February 01, 2017 17:59 - CONCLUSION: 1. Nonspecific approximately 1 cm T2 signal abnormality in the left parietal lobe. Differential diagnosis includes remote injury or focal area of inflammatory change. Recommend further evaluation with postcontrast images. There is no abnormality on diffusion weighted images to suggest recent infarct. Esteban Martino MD Head CT 01/31/17 0000 Signed Impressions: Service Date/Time: Thomas, January 31, 2017 19:26 - CONCLUSION: Normal examination. Ezekiel Ashley MD Objective Remarks GENERAL: This is a well-nourished, well-developed patient, in no apparent distress. Neck; no neck stiffness CARDIOVASCULAR: Regular rate and regular rhythm without murmurs, gallops, or rubs. RESPIRATORY: Clear to auscultation. Breath sounds equal bilaterally. No wheezes , rales, or rhonchi. GASTROINTESTINAL: Abdomen soft, non-tender, nondistended. Normal, active bowel sounds MUSCULOSKELETAL: Extremities without clubbing, cyanosis, or edema. NEURO: Alert & Oriented x4 to person, place, time, situation. Moves all ext x4 Procedures none Medications and IVs Current Medications Sodium Chloride 2 ml 2 ml UNSCH PRN IVF FLUSH AFTER USING IV ACCESS; Start at 20:00 Sodium Chloride 1,000 ml @ 1,000 mls/hr Q1H IV Last administered on 01/31/17 21:37; Start 01/31/17 at 19:59; Stop 01/31/17 at 20:58; Status DC Thiamine HCl/ Sodium Chloride (Thiamine Inj/NS Inj) 101 ml @ 100 mls/hr ONCE ONCE IV Last administered on 01/31/17 21:38; Start 01/31/17 at 20:00; Stop at 21:00; Status DC Lorazepam (Ativan Inj) 2 mg STK-MED ONCE .ROUTE ; Start 01/31/17 at 20:04; Stop 01/31/17 at 20:05; Status DC Lorazepam (Ativan Inj) 2 mg STK-MED ONCE .ROUTE ; Start 01/31/17 at 20:20; Stop 01/31/17 at 20:21; Status DC Lorazepam (Ativan Inj) 2 mg ONCE ONCE IV PUSH Last administered on 01/31/17 20:51; Start 01/31/17 at 20:30; Stop 01/31/17 at 20:34; Status DC Lorazepam (Ativan Inj) 2 mg ONCE ONCE IV PUSH Last administered on 01/31/17 20:52; Start 01/31/17 at 20:30; Stop 01/31/17 at 20:34; Status DC Magnesium Oxide 800 mg 800 mg UNSCH PRN PO For Magnesium 1.2 - 1.6 mg/dL; Start 01/31/17 at 23:15 Magnesium Sulfate 4 gm/Sodium Chloride 100 ml @ 50 mls/hr UNSCH PRN IV For Magnesium 0.9 - 1.1 mg/dL; Start 01/31/17 at 23:15 Magnesium Sulfate 2 gm/Sodium Chloride 100 ml @ 50 mls/hr UNSCH PRN IV For Magnesium 1.2 - 1.6 mg/dL; Start 01/31/17 at 23:15 Potassium Chloride 100 ml @ 50 mls/hr Q2H PRN IV For Potassium 2.8 - 3.2 mEq/L ; Start 01/31/17 at 23:15 Potassium Chloride 100 ml @ 50 mls/hr Q2H PRN IV For Potassium 3.3 - 3.5 mEq/L ; Start 01/31/17 at 23:15 Potassium Chloride 100 ml @ 50 mls/hr Q2H PRN IV For Potassium 2.8 - 3.2 mEq/L ; Start 01/31/17 at 23:15 Potassium Chloride (KCl 40 Meq Premix Inj) 100 ml @ 25 mls/hr UNSCH PRN IV For Potassium 3.3 - 3.5 mEq/L; Start 01/31/17 at 23:15 Potassium Phosphate (K-Phos) 2,000 mg Q4H PRN PO For Phosphorus < 2.5 mg/dL; Start 01/31/17 at 23:15 Potassium Phosphate 2000 mg 2,000 mg UNSCH PRN PO/TUBE SEE LABEL COMMENTS; Start 01/31/17 at 23:15 Potassium Phosphate 30 mmol/ Sodium Chloride 260 ml @ 42 mls/hr UNSCH PRN IV SEE LABEL COMMENTS; Start 01/31/17 at 23:15 Sodium Phosphate/ Sodium Chloride (Sodium Phosphate Inj/NS 250 ml Inj) 250 ml @ 42 mls/hr UNSCH PRN IV For Phosphorus < 2.5 mg/dL; Start 01/31/17 at 23:15 Dextrose (D50w (Vial) Inj) 25 ml UNSCH PRN IV PUSH HYPOGLYCEMIA-SEE COMMENTS; Start 01/31/17 at 23:15 Insulin Human Regular 1 1 ACHS AND 3AM SQ Last administered on 02/02/17 07:00 ; Start 02/01/17 at 03:00 Sodium Chloride (NS 1000 ml Inj) 1,000 ml @ 84 mls/hr [id number] IV Last administered on 02/01/17 23:13; Start 01/31/17 at 23:03 Sodium Chloride (NS Flush) 2 ml UNSCH PRN IV FLUSH FLUSH AFTER USING IV ACCESS ; Start 01/31/17 at 23:15 Sodium Chloride (NS Flush) 2 ml BID IV FLUSH Last administered on 02/02/17 08: 40; Start 02/01/17 at 09:00 Ondansetron HCl (Zofran Inj) 4 mg Q6H PRN IV NAUSEA OR VOMITING Last administered on 02/02/17 05:16; Start 01/31/17 at 23:15 Albuterol/ Ipratropium (Duoneb Neb) 1 ampule Q2HR NEB PRN INH WHEEZING; Start 01/31/17 at 23:15 Enoxaparin Sodium (Lovenox Inj) 40 mg Q24H SQ Last administered on 02/01/17 23 :15; Start 01/31/17 at 23:15 Miscellaneous Information 1 Q361D XX ; Start 01/31/17 at 23:15 Chlorhexidine Gluconate (Chlorhexidine 2% Cloth) 3 pack Taper DAILY@04 TOP Last administered on 02/02/17 04:00; Start 02/01/17 at 04:00; Stop 01/28/18 at 03:59 Chlorhexidine Gluconate (Chlorhexidine 2% Cloth) 3 pack UNSCH PRN TOP HYGIENIC CARE; Start 01/31/17 at 23:15 Sodium Chloride (NS Flush) 2 ml UNSCH PRN IV FLUSH FLUSH AFTER USING IV ACCESS ; Start 01/31/17 at 23:15; Stop 01/31/17 at 23:24; Status DC Sodium Chloride (NS Flush) 2 ml BID IV FLUSH ; Start 02/01/17 at 09:00; Stop at 09:00; Status DC Flumazenil (Romazicon Inj) 0.2 mg Q1M PRN IV PUSH SEE LABEL COMMENTS; Start at 23:15 Lorazepam (Ativan) 1 mg Q4H PRN PO CIWA 8 - 10 Last administered on 02/02/17 06:20; Start 01/31/17 at 23:15 Lorazepam (Ativan Inj) 1 mg Q4H PRN IV PUSH CIWA 8 - 10 Last administered on 04:58; Start 01/31/17 at 23:15 Lorazepam (Ativan) 2 mg Q2H PRN PO CIWA 11-14; Start 01/31/17 at 23:15 Lorazepam (Ativan Inj) 2 mg Q2H PRN IV PUSH CIWA 11-14; Start 01/31/17 at 23:15 Lorazepam (Ativan Inj) 2 mg Q1H PRN IV PUSH CIWA 15-20; Start 01/31/17 at 23:15 Lorazepam (Ativan Inj) 2 mg Q15M PRN IV PUSH CIWA > 20; Start 01/31/17 at 23:15 Chlordiazepoxide 50 mg 50 mg Q8H PO Last administered on 02/02/17 08:40; Start 01/31/17 at 23:15 Thiamine HCl/ Sodium Chloride (Thiamine Inj/NS Inj) 101 ml @ 101 mls/hr Q24H IV Last administered on 02/02/17 01:47; Start 02/01/17 at 01:45; Stop at 02:44; Status DC Thiamine HCl 100 mg 100 mg DAILY PO ; Start 02/03/17 at 09:00 Multivitamins/ Thiamine HCl/ Folic Acid/Sodium Chloride (Mvi-12 Inj/ Thiamine Inj/ Folvite Inj/1/2 NS 500 ml Inj) 511.2 ml @ 125 mls/hr ONCE ONCE IV Last administered on 01/31/17 23:55; Start 01/31/17 at 23:15; Stop 02/01/17 at 03:20 ; Status DC Multivitamins (Theragran) 1 tab DAILY PO Last administered on 02/02/17 08:40; Start 02/02/17 at 09:00 Pantoprazole Sodium (Protonix Inj) 40 mg Q24H IV PUSH Last administered on 02/02 00:27; Start 02/01/17 at 00:45 Acetaminophen (Tylenol) 650 mg Q6H PRN PO pain 1-10 or fever; Start 02/01/17 at 03:15 Clonidine (Catapres) 0.1 mg Q8HR PRN PO SBP> OR = 180, DBP> OR = 100 Last administered on 02/02/17 08:40; Start 02/01/17 at 09:00 A/P Assessment and Plan A/P 1. Seizures -- likely secondary to etoh withdrawal- however with questionable abnormality in parietal lobe on MRI; will consult neurology. -EEG normal but with artifacts -- ativan prn for seizures -- seizure precautions 2. Alcohol Withdrawal -- [facility] protocol -- Librium 50mg po q8h -- ativan prn 3. Alcohol Dependence -- iv thiamine and mvi -- withdrawal treatment as above. 4. Alcoholic gastritis -- previously diagnosed. -- iv ppi. 5. Metabolic Encephalopathy -- ammonia level nominally elevated. -- continue neuro checks . 6- fever- likely due to alcohol withdrawal- now has resolved follow the blood cultures. continue to monitor the temps. 7. elevated BP- likely due to alcohol withdrawal-overall improved. continue clonidine prn- will monitor. 8- mild hypokalemia; replace as needed. SCDs, Lovenox, ppi for ppx. transfer to telemetry this evening after seen by neurology. d/w the RN. Tereso Colbert MD Feb 02, 2017 09:37
--- NOTE | 2017-02-02 11:55 | PD.CONS ---
History of Present Illness Service Neurology Consult Requested By med Reason for Consult abnormal mri brain Primary Care Physician No Primary Care Physician History of Present Illness 51-year-old female admitted for sz. having visual hallucinations. unusual for her. admits to 3-4 beers/day but hasn't doen more then that and denies abrupt cessation. mri brain shows left occipital lesion. bp 189/91 and elevated thereafter with better control since admission. was febrile on admit, now afebrile. no hx of concussion/brain injury/sz. 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 She is a smoker. No shortness of breath. No headache, dizziness, neck pain, chest pain, abdominal pain, UTI symptoms, diarrhea and constipation. Review of Systems as above and admit hp Past Family Social History Past Medical History GERD Chronic knee and back pain Alcohol dependence Past Surgical History Appendectomy Reported Medications Percocet Allergies: Coded Allergies: No Known Allergies (Verified , 08/22/16) Family History Does not know. She is adopted Social History She smokes a pack per day and drinks 6 pack daily. Denies illicit drugs Review of Systems All other ROS: ROS reviewed as documented in chart Past Family Social History Allergies: Coded Allergies: No Known Allergies (Verified , 01/31/17) Active Ordered Medications Current Medications Medications (Trade) Dose Ordered Sig/Fadi Route Start Time Stop Time Status Last Admin (NS Flush) 2 ml UNSCH PRN IVF 01/31/17 20:00 Magnesium Oxide 800 mg 800 mg UNSCH PRN PO 01/31/17 23:15 Magnesium Sulfate 4 gm/Sodium Chloride 100 ml @ 50 mls/hr UNSCH PRN IV 01/31/17 23:15 Magnesium Sulfate 2 gm/Sodium Chloride 100 ml @ 50 mls/hr UNSCH PRN IV 01/31/17 23:15 Potassium Chloride 100 ml @ 50 mls/hr Q2H PRN IV 01/31/17 23:15 02/02/17 09:35 Potassium Chloride 100 ml @ 50 mls/hr Q2H PRN IV 01/31/17 23:15 Potassium Chloride 100 ml @ 50 mls/hr Q2H PRN IV 01/31/17 23:15 (KCl 40 Meq Premix Inj) 100 ml @ 25 mls/hr UNSCH PRN IV 01/31/17 23:15 (K-Phos) 2,000 mg Q4H PRN PO 01/31/17 23:15 Potassium Phosphate 2000 mg 2,000 mg UNSCH PRN PO/TUBE 01/31/17 23:15 Potassium Phosphate 30 mmol/ Sodium Chloride 260 ml @ 42 mls/hr UNSCH PRN IV 01/31/17 23:15 (Sodium Phosphate Inj/NS 250 ml Inj) 250 ml @ 42 mls/hr UNSCH PRN IV 01/31/17 23:15 Dextrose 25 ml 25 ml UNSCH PRN IV PUSH 01/31/17 23:15 (NS 1000 ml Inj) 1,000 ml @ 84 mls/hr [id number] IV 01/31/17 23:03 02/01/17 23:13 (NS Flush) 2 ml UNSCH PRN IV FLUSH 01/31/17 23:15 (NS Flush) 2 ml BID IV FLUSH 02/01/17 09:00 02/02/17 08:40 (Zofran Inj) 4 mg Q6H PRN IV 01/31/17 23:15 02/02/17 05:16 (Lovenox Inj) 40 mg Q24H SQ 01/31/17 23:15 02/01/17 23:15 Miscellaneous Information 1 Q361D XX 01/31/17 23:15 (Chlorhexidine 2% Cloth) 3 pack Taper DAILY@04 TOP 02/01/17 04:00 01/28/18 03:59 02/02/17 04:00 (Chlorhexidine 2% Cloth) 3 pack UNSCH PRN TOP 01/31/17 23:15 (Romazicon Inj) 0.2 mg Q1M PRN IV PUSH 01/31/17 23:15 (Ativan) 1 mg Q4H PRN PO 01/31/17 23:15 02/02/17 06:20 (Ativan Inj) 1 mg Q4H PRN IV PUSH 01/31/17 23:15 02/01/17 04:58 (Ativan) 2 mg Q2H PRN PO 01/31/17 23:15 (Ativan Inj) 2 mg Q2H PRN IV PUSH 01/31/17 23:15 (Ativan Inj) 2 mg Q1H PRN IV PUSH 01/31/17 23:15 (Ativan Inj) 2 mg Q15M PRN IV PUSH 01/31/17 23:15 (Librium) 50 mg Q8H PO 01/31/17 23:15 02/02/17 08:40 (Vitamin B1) 100 mg DAILY PO 02/03/17 09:00 (Theragran) 1 tab DAILY PO 02/02/17 09:00 02/02/17 08:40 (Protonix Inj) 40 mg Q24H IV PUSH 02/01/17 00:45 02/02/17 00:27 (Tylenol) 650 mg Q6H PRN PO 02/01/17 03:15 (Catapres) 0.1 mg Q8HR PRN PO 02/01/17 09:00 02/02/17 08:40 ([place] 5-325 Mg) 1 tab Q6H PRN PO 02/02/17 10:30 Exam I&O / VS 02/01/17 02/01/17 02/02/17 15:00 23:00 07:00 Intake Total 1214 ml 654 ml 943 ml Output Total 2100 ml 500 ml Balance -886 ml 654 ml 443 ml Intake Oral 480 ml 300 ml 600 ml IV Total 734 ml 354 ml 343 ml Output Urine Total 2100 ml 500 ml # Bowel Movements 1 Vital Signs Date Time Temp Pulse Resp B/P Pulse Ox O2 Delivery O2 Flow Rate FiO2 02/02/17 06:00 83 02/02/17 04:00 79 02/02/17 04:00 98.3 79 22 144/91 02/02/17 02:00 77 02/02/17 00:00 98.4 77 20 121/85 02/02/17 00:00 77 02/01/17 22:00 80 02/01/17 20:00 98.6 02/01/17 20:00 98.6 77 20 90/ 02/01/17 20:00 77 02/01/17 18:00 79 02/01/17 16:00 83 02/01/17 16:00 98.2 82 20 129/85 97 02/01/17 14:00 87 02/01/17 12:00 98.8 86 12 172/123 98 02/01/17 12:00 90 General: No acute distress Eye: EOMI Respiratory: Non-labored respirations Cardiology: Normal rate Musculoskeletal: ROM Neurologic: Oriented, Normal sensory, Normal motor, Normal DTR's Psychiatric: Cooperative, Appropriate mood & affect, Normal judgement, Non- suicidal Exam Comments droway but alerts, ox 3. pres Trump, follows, neck supple, eomi, vff- mild rt upper field cut, face sym, no focal weakness, no clonus, planterflexor Review/Management Diagnosis/Plan: (1) Brain lesion Plan: focal PRES vs previous injury vs neoplastic vs facing slitter infection dwi negative recs repeat mr with contrast keppra 500mg bid reduce librium- sleepy iv acyclovir until mri brain completed possible csf pending above (2) Seizure (3) Alcohol dependence Problem Qualifiers (1) Alcohol dependence: Qualified Code: F10.29 - Alcohol dependence with unspecified alcohol-induced disorder Jake Gilliam MD Feb 02, 2017 11:55
[2017-02-02] MEDS: levETIRAcetam 500 MG TAB PO SCH ×2 (12:42→20:18)
[2017-02-02] MEDS: SODIUM CHLOR 0.9% 1000 ML INJ 1,000 ML IV SCH (12:44)
[2017-02-02] MEDS: ACETAMINOPHEN/HYDROcodone 325 MG/5 MG TAB PO PRN ×2 (12:52→20:26)
[2017-02-02] MEDS: ACYCLOVIR INJ 700 MG in SODIUM CHLORIDE 0.9% INJ 100 ML IV SCH ×2 (13:17→20:16)
[2017-02-02] MEDS ORDERED: GADODIAMIDE PF 287 MG/ML 20 ML VIAL (for RAD MRI) IV ONE (15:46)
--- NOTE | 2017-02-02 16:18 | RADRPT ---
EXAM DATE/TIME: 02/02/2017 15:32 [place] COMPARISON: No previous studies available for comparison. INDICATIONS : Epilepsy. CONTRAST: 16 cc Omniscan (gadodiamide) IV MEDICAL HISTORY : None. SURGICAL HISTORY : Appendectomy. ENCOUNTER: Initial ACUITY: 1 day PAIN SCORE: 0/10 LOCATION: cranial TECHNIQUE: Multiplanar, multisequence MRI of the brain was performed both prior to and following the administrat ion of paramagnetic contrast. FINDINGS: Comparison is February 01. The previously described approximately 1 cm area of signal abnormality on the flair images in the left parietal lobe does not demonstrate any contrast-enhancement. There is no ma ss effect. Finding is likely benign and could represent an injury. There is a prominent fold of cereb rum and extension into the signal abnormality. CONCLUSION: 1. No significant abnormality in the left parietal region on postcontrast images. Finding is likely b enign. No evidence for cerebritis, mass or recent infarct. Questionable remote injury. Esteban Martino MD on February 02, 2017 at 16:12 Board Certified Radiologist. This report was verified electronically.
[2017-02-03] VITALS (10 sets, daily range): BP systolic 102–126; BP diastolic 65–86; PULSE 63–117; RESP 18–22; TEMP 96.8–98.3; O2SAT 89–99
[2017-02-03] MEDS: PANTOPRAZOLE SODIUM 40 MG VIAL IV PUSH SCH (01:13)
[2017-02-03] MEDS: SODIUM CHLOR 0.9% 1000 ML INJ 1,000 ML IV SCH ×3 (01:24→14:53)
[2017-02-03] MEDS: INSULIN NovoLIN REGULAR SUPPLEMENTAL SCALE SQ SCH ×5 (03:00→21:00)
[2017-02-03] MEDS: CHLORHEXIDINE GLUCONATE 2 % 1 PACK (2 CLOTHS) TOP SCH (03:51)
[2017-02-03] MEDS: ACYCLOVIR INJ 700 MG in SODIUM CHLORIDE 0.9% INJ 100 ML IV SCH ×3 (05:39→23:12)
[2017-02-03 05:56] LABS: HEMATOCRIT 38.3 % (35.0-46.0); MEAN CELL VOLUME 98.8 FL (80.0-100.0); MEAN CORPUSCULAR HEMOGLOBIN 33.2 PG (27.0-34.0); MEAN CORPUSCULAR HGB CONC 33.6 % (32.0-36.0); PLATELET COUNT 168 TH/MM3 (150-450); RED BLOOD COUNT 3.88 MIL/MM3 (4.00-5.30); RED CELL DISTRIBUTION WIDTH 13.2 % (11.6-17.2); REVIEW FLAG FINAL; WHITE BLOOD COUNT 3.9 TH/MM3 (4.0-11.0)
[2017-02-03 06:07] LABS: BICARBONATE 25.7 MEQ/L (21.0-32.0); POTASSIUM 3.7 MEQ/L (3.5-5.1)
[2017-02-03] MEDS: LORazepam 1 MG TAB PO PRN (06:49)
[2017-02-03] MEDS: SODIUM CHLORIDE 0.9% FLUSH 10 ML FLUSH IV FLUSH SCH ×2 (09:00→23:13)
[2017-02-03] MEDS: MULTIVITAMIN TAB PO SCH (09:13)
[2017-02-03] MEDS: THIAMINE HCL 100 MG TAB PO SCH (09:14)
[2017-02-03] MEDS: levETIRAcetam 500 MG TAB PO SCH ×2 (09:14→23:12)
--- NOTE | 2017-02-03 09:27 | HHI.PR ---
Subjective Remarks in no acute distress. more alert today. no seizures over night. remains afebrile. BP better. d/w the RN and no acute issues over night. Objective Vitals Vital Signs Date Time Temp Pulse Resp B/P Pulse Ox O2 Delivery O2 Flow Rate FiO2 02/03/17 06:00 117 02/03/17 04:00 98.3 99 22 116/78 94 02/03/17 04:00 99 02/03/17 02:00 72 02/03/17 02:00 72 02/03/17 00:00 98.3 69 20 102/65 02/03/17 00:00 69 02/02/17 22:00 73 02/02/17 20:00 78 02/02/17 20:00 98.1 78 20 111/71 02/02/17 16:00 76 02/02/17 16:00 97.8 76 19 105/73 94 02/02/17 14:00 79 02/02/17 13:52 14 02/02/17 12:00 82 02/02/17 12:00 98.4 82 18 164/111 98 02/02/17 10:00 86 I/O 02/02/17 02/02/17 02/02/17 02/03/17 02/03/17 02/03/17 07:00 15:00 23:00 07:00 15:00 23:00 Intake Total 943 ml 1381 ml 1065 ml 1214 ml Output Total 500 ml 700 ml 500 ml 600 ml Balance 443 ml 681 ml 565 ml 614 ml Intake Oral 600 ml 480 ml 500 ml 600 ml IV Total 343 ml 901 ml 565 ml 614 ml Output Urine Total 500 ml 700 ml 500 ml 600 ml # Bowel Movements 1 Result Diagram: 02/03/17 0522 02/03/17 0522 Imaging Last Impressions Brain MRI 02/02/17 0000 Signed Impressions: Service Date/Time: Thursday, February 02, 2017 15:32 - CONCLUSION: 1. No significant abnormality in the left parietal region on postcontrast images. Finding is likely benign. No evidence for cerebritis, mass or recent infarct. Questionable remote injury. Esteban Martino MD Head CT 01/31/17 0000 Signed Impressions: Service Date/Time: Tuesday, January 31, 2017 19:26 - CONCLUSION: Normal examination. Ezekiel Ashley MD Objective Remarks GENERAL: This is a well-nourished, well-developed patient, in no apparent distress. Neck; no neck stiffness CARDIOVASCULAR: Regular rate and regular rhythm without murmurs, gallops, or rubs. RESPIRATORY: Clear to auscultation. Breath sounds equal bilaterally. No wheezes , rales, or rhonchi. GASTROINTESTINAL: Abdomen soft, non-tender, nondistended. Normal, active bowel sounds MUSCULOSKELETAL: Extremities without clubbing, cyanosis, or edema. NEURO: Alert & Oriented x4 to person, place, time, situation. Moves all ext x4 Procedures none Medications and IVs Current Medications Sodium Chloride 2 ml 2 ml UNSCH PRN IVF FLUSH AFTER USING IV ACCESS; Start at 20:00 Sodium Chloride 1,000 ml @ 1,000 mls/hr Q1H IV Last administered on 01/31/17 21:37; Start 01/31/17 at 19:59; Stop 01/31/17 at 20:58; Status DC Thiamine HCl/ Sodium Chloride (Thiamine Inj/NS Inj) 101 ml @ 100 mls/hr ONCE ONCE IV Last administered on 01/31/17 21:38; Start 01/31/17 at 20:00; Stop at 21:00; Status DC Lorazepam (Ativan Inj) 2 mg STK-MED ONCE .ROUTE ; Start 01/31/17 at 20:04; Stop 01/31/17 at 20:05; Status DC Lorazepam (Ativan Inj) 2 mg STK-MED ONCE .ROUTE ; Start 01/31/17 at 20:20; Stop 01/31/17 at 20:21; Status DC Lorazepam (Ativan Inj) 2 mg ONCE ONCE IV PUSH Last administered on 01/31/17 20:51; Start 01/31/17 at 20:30; Stop 01/31/17 at 20:34; Status DC Lorazepam (Ativan Inj) 2 mg ONCE ONCE IV PUSH Last administered on 01/31/17 20:52; Start 01/31/17 at 20:30; Stop 01/31/17 at 20:34; Status DC Magnesium Oxide 800 mg 800 mg UNSCH PRN PO For Magnesium 1.2 - 1.6 mg/dL; Start 01/31/17 at 23:15 Magnesium Sulfate 4 gm/Sodium Chloride 100 ml @ 50 mls/hr UNSCH PRN IV For Magnesium 0.9 - 1.1 mg/dL; Start 01/31/17 at 23:15 Magnesium Sulfate 2 gm/Sodium Chloride 100 ml @ 50 mls/hr UNSCH PRN IV For Magnesium 1.2 - 1.6 mg/dL; Start 01/31/17 at 23:15 Potassium Chloride 100 ml @ 50 mls/hr Q2H PRN IV For Potassium 2.8 - 3.2 mEq/ L Last administered on 02/02/17t 16:07; Start 01/31/17 at 23:15 Potassium Chloride 100 ml @ 50 mls/hr Q2H PRN IV For Potassium 3.3 - 3.5 mEq/L ; Start 01/31/17 at 23:15 Potassium Chloride 100 ml @ 50 mls/hr Q2H PRN IV For Potassium 2.8 - 3.2 mEq/L ; Start 01/31/17 at 23:15 Potassium Chloride (KCl 40 Meq Premix Inj) 100 ml @ 25 mls/hr UNSCH PRN IV For Potassium 3.3 - 3.5 mEq/L; Start 01/31/17 at 23:15 Potassium Phosphate (K-Phos) 2,000 mg Q4H PRN PO For Phosphorus < 2.5 mg/dL; Start 01/31/17 at 23:15 Potassium Phosphate 2000 mg 2,000 mg UNSCH PRN PO/TUBE SEE LABEL COMMENTS; Start 01/31/17 at 23:15 Potassium Phosphate 30 mmol/ Sodium Chloride 260 ml @ 42 mls/hr UNSCH PRN IV SEE LABEL COMMENTS; Start 01/31/17 at 23:15 Sodium Phosphate/ Sodium Chloride (Sodium Phosphate Inj/NS 250 ml Inj) 250 ml @ 42 mls/hr UNSCH PRN IV For Phosphorus < 2.5 mg/dL; Start 01/31/17 at 23:15 Dextrose (D50w (Vial) Inj) 25 ml UNSCH PRN IV PUSH HYPOGLYCEMIA-SEE COMMENTS; Start 01/31/17 at 23:15 Insulin Human Regular 1 1 ACHS AND 3AM SQ Last administered on 02/03/17 06:49 ; Start 02/01/17 at 03:00 Sodium Chloride (NS 1000 ml Inj) 1,000 ml @ 84 mls/hr [id number] IV Last administered on 02/03/17 01:24; Start 01/31/17 at 23:03 Sodium Chloride (NS Flush) 2 ml UNSCH PRN IV FLUSH FLUSH AFTER USING IV ACCESS ; Start 01/31/17 at 23:15 Sodium Chloride (NS Flush) 2 ml BID IV FLUSH Last administered on 02/02/17 20: 17; Start 02/01/17 at 09:00 Ondansetron HCl (Zofran Inj) 4 mg Q6H PRN IV NAUSEA OR VOMITING Last administered on 02/02/17 05:16; Start 01/31/17 at 23:15 Albuterol/ Ipratropium (Duoneb Neb) 1 ampule Q2HR NEB PRN INH WHEEZING; Start 01/31/17 at 23:15 Enoxaparin Sodium (Lovenox Inj) 40 mg Q24H SQ Last administered on 02/01/17 23 :15; Start 01/31/17 at 23:15; Stop 02/02/17 at 11:53; Status DC Miscellaneous Information 1 Q361D XX ; Start 01/31/17 at 23:15 Chlorhexidine Gluconate (Chlorhexidine 2% Cloth) 3 pack Taper DAILY@04 TOP Last administered on 02/03/17 03:51; Start 02/01/17 at 04:00; Stop 01/28/18 at 03:59 Chlorhexidine Gluconate (Chlorhexidine 2% Cloth) 3 pack UNSCH PRN TOP HYGIENIC CARE; Start 01/31/17 at 23:15 Sodium Chloride (NS Flush) 2 ml UNSCH PRN IV FLUSH FLUSH AFTER USING IV ACCESS ; Start 01/31/17 at 23:15; Stop 01/31/17 at 23:24; Status DC Sodium Chloride (NS Flush) 2 ml BID IV FLUSH ; Start 02/01/17 at 09:00; Stop at 09:00; Status DC Flumazenil (Romazicon Inj) 0.2 mg Q1M PRN IV PUSH SEE LABEL COMMENTS; Start at 23:15 Lorazepam (Ativan) 1 mg Q4H PRN PO CIWA 8 - 10 Last administered on 02/03/17 06:49; Start 01/31/17 at 23:15 Lorazepam (Ativan Inj) 1 mg Q4H PRN IV PUSH CIWA 8 - 10 Last administered on 04:58; Start 01/31/17 at 23:15 Lorazepam (Ativan) 2 mg Q2H PRN PO CIWA 11-14; Start 01/31/17 at 23:15 Lorazepam (Ativan Inj) 2 mg Q2H PRN IV PUSH CIWA 11-14; Start 01/31/17 at 23:15 Lorazepam (Ativan Inj) 2 mg Q1H PRN IV PUSH CIWA 15-20; Start 01/31/17 at 23:15 Lorazepam (Ativan Inj) 2 mg Q15M PRN IV PUSH CIWA > 20; Start 01/31/17 at 23:15 Chlordiazepoxide 50 mg 50 mg Q8H PO Last administered on 02/02/17 08:40; Start 01/31/17 at 23:15; Stop 02/02/17 at 11:53; Status DC Thiamine HCl/ Sodium Chloride (Thiamine Inj/NS Inj) 101 ml @ 101 mls/hr Q24H IV Last administered on 02/02/17 01:47; Start 02/01/17 at 01:45; Stop at 02:44; Status DC Thiamine HCl 100 mg 100 mg DAILY PO ; Start 02/03/17 at 09:00 Multivitamins/ Thiamine HCl/ Folic Acid/Sodium Chloride (Mvi-12 Inj/ Thiamine Inj/ Folvite Inj/1/2 NS 500 ml Inj) 511.2 ml @ 125 mls/hr ONCE ONCE IV Last administered on 01/31/17 23:55; Start 01/31/17 at 23:15; Stop 02/01/17 at 03:20 ; Status DC Multivitamins (Theragran) 1 tab DAILY PO Last administered on 02/02/17 08:40; Start 02/02/17 at 09:00 Pantoprazole Sodium (Protonix Inj) 40 mg Q24H IV PUSH Last administered on 02/03 01:13; Start 02/01/17 at 00:45 Acetaminophen (Tylenol) 650 mg Q6H PRN PO PAIN < 5 Last administered on 01:13; Start 02/01/17 at 03:15 Clonidine (Catapres) 0.1 mg Q8HR PRN PO SBP> OR = 180, DBP> OR = 100 Last administered on 02/02/17 08:40; Start 02/01/17 at 09:00 Acetaminophen/ Hydrocodone Bitart ([place] 5-325 Mg) 1 tab Q6H PRN PO PAIN > 5 Last administered on 02/02/17 20:26; Start 02/02/17 at 10:30 Levetriacetam (Keppra) 500 mg Q12HR PO Last administered on 02/02/17 20:18; Start 02/02/17 at 12:00 Chlordiazepoxide 10 mg 10 mg Q8HR PO Last administered on 02/03/17 05:39; Start 02/02/17 at 14:00 Acyclovir Sodium/ Sodium Chloride (Zovirax Inj/NS Inj) 100 ml @ 100 mls/hr Q8H IV Last administered on 02/03/17 05:39; Start 02/02/17 at 13:00 Gadodiamide (Omniscan Pf Inj) 16 ml STK-MED ONCE IV Last administered on 15:46; Start 02/02/17 at 15:46; Stop 02/02/17 at 15:47; Status DC A/P Assessment and Plan A/P 1. Seizures -- likely secondary to etoh withdrawal- -repeated MRI brain ( post-contrast) with no acute abnormality. -EEG normal but with artifacts -neurology consult appreciated and started on Keppra. -- ativan prn for seizures -- seizure precautions 2. Alcohol Withdrawal -- [facility] protocol -- ativan prn -continue thiamine -counselled on drinking cessation. 3. Alcoholic gastritis -- previously diagnosed. --continue ppi. 4. Metabolic Encephalopathy-improved -- continue neuro checks . 5- fever- likely due to alcohol withdrawal- now has resolved blood cultures negative. continue to monitor the temps. 6. elevated BP- likely due to alcohol withdrawal-overall improved. continue clonidine prn- will monitor. 7- mild hypokalemia; replaced . 8- vitamin B 12 deficiency; will strat replacement. 9- low TSH; will check free T4 DVT/GI prophylaxis with SCD's/ PPI. dc jiang cath. PT evaluation appreciated. transfer to telemetry if ok with neurology. d/w the Tereso Baker MD Feb 03, 2017 09:27
[2017-02-03] MEDS: CYANOCOBALAMIN 1,000 MCG TAB PO SCH (11:30)
[2017-02-03] MEDS: NICOTINE 21 MG/24 HR PATCH T-DERMAL SCH (11:31)
[2017-02-03] MEDS: ACETAMINOPHEN/HYDROcodone 325 MG/5 MG TAB PO PRN ×3 (11:34→23:18)
[2017-02-03] MEDS ORDERED: REMOVE OLD NICODERM (NICOTINE) PATCH T-DERMAL SCH (21:00)
[2017-02-04] VITALS: BP 128/70; PULSE 88; RESP 20; TEMP 96.5; O2SAT 98
[2017-02-04] MEDS: PANTOPRAZOLE SODIUM 40 MG VIAL IV PUSH SCH (00:36)
[2017-02-04] MEDS: ONDANSETRON HCL 4 MG/2 ML VIAL IV PRN (00:36)
[2017-02-04 01:58] VITALS: PULSE 78
[2017-02-04] MEDS: INSULIN NovoLIN REGULAR SUPPLEMENTAL SCALE SQ SCH ×3 (03:00→11:00)
[2017-02-04] MEDS: CHLORHEXIDINE GLUCONATE 2 % 1 PACK (2 CLOTHS) TOP SCH (04:00)
[2017-02-04] MEDS: ACYCLOVIR INJ 700 MG in SODIUM CHLORIDE 0.9% INJ 100 ML IV SCH (05:16)
[2017-02-04] MEDS: ACETAMINOPHEN/HYDROcodone 325 MG/5 MG TAB PO PRN ×2 (05:17→11:08)
[2017-02-04 05:47] VITALS: BP 112/78; PULSE 70; RESP 20; TEMP 96; O2SAT 100
[2017-02-04 07:19] LABS: HEMATOCRIT 36.2 % (35.0-46.0); MEAN CELL VOLUME 99.1 FL (80.0-100.0); MEAN CORPUSCULAR HEMOGLOBIN 33.1 PG (27.0-34.0); MEAN CORPUSCULAR HGB CONC 33.4 % (32.0-36.0); PLATELET COUNT 159 TH/MM3 (150-450); RED BLOOD COUNT 3.65 MIL/MM3 (4.00-5.30); RED CELL DISTRIBUTION WIDTH 13.4 % (11.6-17.2); REVIEW FLAG FINAL; WHITE BLOOD COUNT 3.1 TH/MM3 (4.0-11.0)
[2017-02-04 07:43] LABS: BICARBONATE 25.8 MEQ/L (21.0-32.0)
[2017-02-04 08:03] VITALS: BP 119/78; PULSE 67; RESP 20; TEMP 98.2; O2SAT 98
--- NOTE | 2017-02-04 08:13 | HHI.PR ---
Review/Management Diagnosis/Plan: (1) Brain lesion Plan: focal PRES vs previous injury vs neoplastic vs riding teacher infection dwi negative recs neuro stable bp control aspirin 81mg qd continue keppra d/w pt results of mri brain ok to d/c from neuro. she follows with Dr. Patel for pain. he can manage her neurologically. suggested repeat mri brain in 6-8 weeks with contrast. no driving/climbing heights (2) Seizure (3) Alcohol dependence Subjective Subjective Comments No acute events reported No headache No chest pain No dyspnea Active Medications Current Medications Medications (Trade) Dose Ordered Sig/Fadi Route Start Time Stop Time Status Last Admin (NS Flush) 2 ml UNSCH PRN IVF 01/31/17 20:00 Dextrose 25 ml 25 ml UNSCH PRN IV PUSH 01/31/17 23:15 (NS 1000 ml Inj) 1,000 ml @ 84 mls/hr [id number] IV 01/31/17 23:03 02/03/17 10:38 (NS Flush) 2 ml UNSCH PRN IV FLUSH 01/31/17 23:15 (NS Flush) 2 ml BID IV FLUSH 02/01/17 09:00 02/03/17 23:13 (Zofran Inj) 4 mg Q6H PRN IV 01/31/17 23:15 02/04/17 00:36 Miscellaneous Information 1 Q361D XX 01/31/17 23:15 (Chlorhexidine 2% Cloth) 3 pack Taper DAILY@04 TOP 02/01/17 04:00 01/28/18 03:59 02/03/17 03:51 (Chlorhexidine 2% Cloth) 3 pack UNSCH PRN TOP 01/31/17 23:15 (Romazicon Inj) 0.2 mg Q1M PRN IV PUSH 01/31/17 23:15 (Ativan) 1 mg Q4H PRN PO 01/31/17 23:15 02/03/17 06:49 (Ativan Inj) 1 mg Q4H PRN IV PUSH 01/31/17 23:15 02/01/17 04:58 (Ativan) 2 mg Q2H PRN PO 01/31/17 23:15 (Ativan Inj) 2 mg Q2H PRN IV PUSH 01/31/17 23:15 (Ativan Inj) 2 mg Q1H PRN IV PUSH 01/31/17 23:15 (Ativan Inj) 2 mg Q15M PRN IV PUSH 01/31/17 23:15 (Vitamin B1) 100 mg DAILY PO 02/03/17 09:00 02/03/17 09:14 (Theragran) 1 tab DAILY PO 02/02/17 09:00 02/03/17 09:13 (Protonix Inj) 40 mg Q24H IV PUSH 02/01/17 00:45 02/04/17 00:36 (Tylenol) 650 mg Q6H PRN PO 02/01/17 03:15 02/03/17 01:13 (Catapres) 0.1 mg Q8HR PRN PO 02/01/17 09:00 02/02/17 08:40 ([place] 5-325 Mg) 1 tab Q6H PRN PO 02/02/17 10:30 02/04/17 05:17 (Keppra) 500 mg Q12HR PO 02/02/17 12:00 02/03/17 23:12 Chlordiazepoxide 10 mg 10 mg Q8HR PO 02/02/17 14:00 02/04/17 05:16 (Zovirax Inj/NS Inj) 100 ml @ 100 mls/hr Q8H IV 02/02/17 13:00 02/04/17 05:16 (Vitamin B12) 1,000 mcg DAILY PO 02/03/17 10:00 02/03/17 11:30 (Habitrol 21 Mg Patch.24 Hr) 1 patch DAILY T-DERMAL 02/03/17 11:00 02/03/17 11:31 Miscellaneous Information 1 HS T-DERMAL 02/03/17 21:00 02/03/17 21:00 Allergies Allergies Coded Allergies No Known Allergies (Verified01/31/17) Review of Systems All other ROS: ROS reviewed as documented in chart Exam I&O / VS 02/03/17 02/03/17 02/04/17 15:00 23:00 07:00 Intake Total 1425 ml 580 ml 100 ml Output Total 574 ml Balance 851 ml 580 ml 100 ml Intake Oral 800 ml 480 ml IV Total 625 ml 100 ml 100 ml Output Urine Total 574 ml # Voids 1 1 # Bowel Movements 0 1 Vital Signs Date Time Temp Pulse Resp B/P Pulse Ox O2 Delivery O2 Flow Rate FiO2 02/04/17 08:03 98.2 67 20 119/78 98 02/04/17 05:47 96.0 70 20 112/78 100 02/04/17 01:58 78 02/04/17 00:00 96.5 88 20 128/70 98 02/03/17 20:00 97.2 68 20 126/79 02/03/17 16:22 96.8 74 20 116/72 99 02/03/17 14:00 70 02/03/17 12:34 16 02/03/17 12:00 77 02/03/17 12:00 98.3 77 18 118/78 89 02/03/17 10:00 77 General: No acute distress Eye: EOMI Respiratory: Non-labored respirations Cardiology: Normal rate Musculoskeletal: ROM Neurologic: Oriented, Normal sensory, Normal motor, Normal DTR's Psychiatric: Cooperative, Appropriate mood & affect, Normal judgement, Non- suicidal Exam Comments alert, ox 3, reading on her phone when i walked in, calm, pleasant, face sym, no focal weakness, no clonus, planterflexor Objective Micro and Labs Laboratory Tests Test 02/04/17 06:53 White Blood Count 3.1 Red Blood Count 3.65 Hemoglobin 12.1 Hematocrit 36.2 Mean Corpuscular Volume 99.1 Mean Corpuscular Hemoglobin 33.1 Mean Corpuscular Hemoglobin 33.4 Concent Red Cell Distribution Width 13.4 Platelet Count 159 Mean Platelet Volume 7.9 Sodium Level 141 Potassium Level 4.0 Chloride Level 108 Carbon Dioxide Level 25.8 Anion Gap 7 Blood Urea Nitrogen 10 Creatinine 0.59 Estimat Glomerular Filtration 108 Rate Random Glucose 90 Calcium Level 8.2 Date/Time Procedure Status Source Growth 02/01/17 09:55 Aerobic Blood Culture - Preliminary Resulted Blood Peripheral NO GROWTH IN 2 DAYS 02/01/17 09:55 Anaerobic Blood Culture - Preliminary Resulted Blood Peripheral NO GROWTH IN 2 DAYS Problem Qualifiers (1) Alcohol dependence: Qualified Code: F10.29 - Alcohol dependence with unspecified alcohol-induced disorder Jake Gilliam MD Feb 04, 2017 08:13
[2017-02-04] MEDS: SODIUM CHLORIDE 0.9% FLUSH 10 ML FLUSH IV FLUSH SCH (09:00)
[2017-02-04] MEDS ORDERED: ASPIRIN EC 81 MG TABEC PO SCH (09:00)
[2017-02-04] MEDS: THIAMINE HCL 100 MG TAB PO SCH (09:11)
[2017-02-04] MEDS: CYANOCOBALAMIN 1,000 MCG TAB PO SCH (09:11)
[2017-02-04] MEDS: levETIRAcetam 500 MG TAB PO SCH (09:11)
[2017-02-04] MEDS: MULTIVITAMIN TAB PO SCH (09:11)
[2017-02-04] MEDS: NICOTINE 21 MG/24 HR PATCH T-DERMAL SCH (09:12)
[2017-02-04] MEDS: SODIUM CHLOR 0.9% 1000 ML INJ 1,000 ML IV SCH (11:09)
[2017-02-04 12:09] VITALS: BP 131/87; PULSE 80; RESP 20; TEMP 97.1; O2SAT 99
[2017-02-04] MEDS ORDERED: LEVE500 PO (14:43)
[2017-02-04] MEDS ORDERED: ASPI81TA11 PO (14:43)
--- NOTE | 2017-02-04 14:52 | HHI.DS ---
Discharge Summary Admission Date Jan 31, 2017 at 22:13 Discharge Date: Feb 04, 2017 Admitting Diagnosis Alcohol withdrawal seizure. (1) Seizure ICD Code: R56.9 Diagnosis: Principal (2) Brain lesion ICD Code: G93.9 Diagnosis: Principal Procedures none Brief History - From Admission This is a 51yF who presented to the ED earlier in the day with abdominal pain and was diagnosed with alcoholic gastritis. She was discharged. She represents this evening with visual hallucinations. While she was in the emergency department getting worked up for this, she had a witnessed seizure event. It lasted maybe 30 seconds and subsided on its own. She was given Ativan IV. She did endorse to the emergency room physician that she has stopped drinking [address] head is normal. Her laboratory values are all reassuring. When I evaluated the patient, she is lying on her side, awake and alert, but is refusing to participate in the history. She will answer any of my questions. She does say she is not in pain. Critical-care medicine is consulted to evaluate and manage probable seizures associated with alcohol withdrawal. The remainder of the history was presented to me by the ER physician. CBC/BMP: 02/04/17 0653 02/04/17 0653 Significant Findings Laboratory Tests Test 02/02/17 02/03/17 02/04/17 04:40 05:22 06:53 Potassium Level 3.1 MEQ/L (3.5-5.1) Estimat Glomerular Filtration 86 ML/MIN (>89) Rate Random Glucose 109 MG/DL (74-106) Calcium Level 8.4 MG/DL 8.3 MG/DL 8.2 MG/DL (8.5-10.1) (8.5-10.1) (8.5-10.1) Vitamin B12 Level 174 PG/ML (193-986) Thyroid Stimulating Hormone 0.149 uIU/ML 3rd Gen (0.358-3.740) White Blood Count 3.9 TH/MM3 3.1 TH/MM3 (4.0-11.0) (4.0-11.0) Red Blood Count 3.88 MIL/MM3 3.65 MIL/MM3 (4.00-5.30) (4.00-5.30) Chloride Level 108 MEQ/L 108 MEQ/L (98-107) (98-107) Imaging Last Impressions Brain MRI 02/02/17 0000 Signed Impressions: Service Date/Time: Thursday, February 02, 2017 15:32 - CONCLUSION: 1. No significant abnormality in the left parietal region on postcontrast images. Finding is likely benign. No evidence for cerebritis, mass or recent infarct. Questionable remote injury. Esteban Martino MD Head CT 01/31/17 0000 Signed Impressions: Service Date/Time: Tuesday, January 31, 2017 19:26 - CONCLUSION: Normal examination. Ezekiel Ashley MD PE at Discharge GENERAL: This is a well-nourished, well-developed patient, in no apparent distress. Neck; no neck stiffness CARDIOVASCULAR: Regular rate and regular rhythm without murmurs, gallops, or rubs. RESPIRATORY: Clear to auscultation. Breath sounds equal bilaterally. No wheezes , rales, or rhonchi. GASTROINTESTINAL: Abdomen soft, non-tender, nondistended. Normal, active bowel sounds MUSCULOSKELETAL: Extremities without clubbing, cyanosis, or edema. NEURO: Alert & Oriented x4 to person, place, time, situation. Moves all ext x4 Pt update on day of discharge Seizuer free for over 72 hours now. Patient was under the impression she was having an EGD, but I can find no evidence that this is a part of the plan and it is not a part of my plan. She is medically stable for discharge today. Hospital Course Mrs. Ross is a 51 year old female. She has no prior history of seizure disorder. She does report daily alcohol use, but she had not changes her frequency of use or quit prior to the onset of seizure. She reports consuming 4 -6 beers daily. She came into the ER for nausea/vomiting 4 days ago. When she was leaving the ER she had a seizure and was found outside. While here she has been started on Keppra. No further seizure activity has occured. She has imaging of the brain which reveals a non specific lession which may be related to her seizures and which has been recommended for follow up imaging in 6 months. No new complaints today. Aspirin and Keppra are added to her prior treatments. She was previously on Zofran and Oxycodone. She is advised not to drink alcohol in order to avoid potential medication conflicts. Medically stable for discharge to home today. Pt Condition on Discharge: Stable Discharge Disposition: Discharge Home Discharge Time: <= 30 minutes Discharge Instructions DIET: Follow Instructions for: As Tolerated, No Restrictions Activities you can perform: Regular-No Restrictions Follow up Referrals: PCP Follow-up - 1 Week New Medications: Aspirin DR (Aspirin EC) 81 Mg Tabdr 81 MG PO DAILY Blood Clot Prevention #30 TAB Levetiracetam (Keppra) 500 Mg Tab 500 MG PO Q12HR Seizure Control #60 TAB Continued Medications: Ondansetron Odt (Zofran Odt) 4 Mg Tab 4 MG SL Q6HR PRN Nausea/Vomiting #15 TAB Oxycodone-Acetaminophen (Percocet) 10-325 mg Tab 1 TAB PO Q6H PRN PAIN Ref 0 TAB Additional Information Follow up with Dr. Patel as an outpatient Repeat brain MRI in 6-8 weeks recommended by neurology Bruno Queen MD Feb 04, 2017 14:52
[2017-02-04] MEDS ORDERED: SENNOSIDES SYRUP 8.8 MG/5 ML CUP PO ONE (15:00)
== END 2017-02-04 16:00 | disposition home or self-care (01) | DRG 896 ==
LOC: NEPD 18:11 → NEDA 22:13 → HIMN 02-01 02:30 → N05A 02-03 15:23
PROVIDERS: ADMIT Hospitalist; ATTEND Hospitalist
DX: F10.231 Alcohol dependence with withdrawal delirium (principal); G93.41 Metabolic encephalopathy; G93.89 Other specified disorders of brain; E53.8 Deficiency of other specified B group vitamins; G40.89 Other seizures; K21.9 Gastro-esophageal reflux disease without esophagitis; K29.20 Alcoholic gastritis without bleeding; R03.0 Elevated blood-pressure reading, without diagnosis of hypertension; E87.6 Hypokalemia; F17.210 Nicotine dependence, cigarettes, uncomplicated; Y90.0 Blood alcohol level of less than 20 mg/100 ml
CPT/HCPCS: 51702; 70450; 70551; 70553; 80048; 80053; 80307; 81001; 82140; 82607; 82948; 84439; 84443; 85025; 85027; 85610; 85652; 85730; 86140; 87040; 87641; 93005; 94150; 94640; 94667; 95819; 96361; 96374; 96375; A9579; C9113; J0133; J1650; J2060; J2405; J3411; J3480; J7030

== ENCOUNTER 2017-03-10 14:24 | Emergency (ER) | payer SELFPAY ==
[~2017-03-10 14:24] MED LIST changes: -ALBUAER3 INH; +ASPI81TA11 PO; -CHLO10CA2 PO; -FOLI1TAB4 PO; +LEVE500 PO; -LOTR15T TOPICAL; -PRED50 PO; -PROM25TA5 PO; -VITA100T2 PO; -ZITH250T PO; -ZITHTAB PO
[2017-03-10 14:26] VITALS: BP 133/84; PULSE 74; RESP 16; TEMP 97.8; O2SAT 100
--- NOTE | 2017-03-10 15:42 | PD ---
Physical Exam Date Seen by Provider: March 10, 2017 Time Seen by Provider: 15:40 Narrative 51 y/o female with left low back and hip pain and sciatica. Pain 10/10 and having trouble walking. Was taking Oxycodone and Flexeril up until 6 weeks ago. No Numbness or tingling. V/S Stable Awaiting Bed Placement. Data Data Last Documented VS Vital Signs Date Time Temp Pulse Resp B/P Pulse Ox O2 Delivery O2 Flow Rate FiO2 03/10/17 14:26 97.8 74 16 133/84 100 MDM Medical Record Reviewed: Yes Supervised Visit with SYBIL: Yes Condition: Stable Smith Dahl March 10, 2017 15:42
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
[2017-03-10] MEDS ORDERED: MOTR200T4 PO (16:39)
[2017-03-10] MEDS ORDERED: KETOROLAC TROMETHAMINE 60 MG/2 ML (IM) VIAL IM ONE (17:00)
== END 2017-03-10 17:04 | disposition home or self-care (01) ==
LOC: NEPK 14:24
DX: M54.5 Low back pain (principal); F17.210 Nicotine dependence, cigarettes, uncomplicated
CPT/HCPCS: 96372; 99284; J1885

== ENCOUNTER 2017-12-09 22:36 | Inpatient (IN) | payer OTHER ==
[~2017-12-09] VITALS: Ht 177.8 cm; Wt 78.9 kg
[~2017-12-09 22:36] MED LIST changes: -ASPI81TA11 PO; +ASPI81TA23 PO; +MOTR200T4 PO; -PERC10TA27 PO; -ZOFR4TAB3 SL
[2017-12-09 22:49] VITALS: BP_SYST 205; BP_SYST 217; BP_DIAS 127; BP_DIAS 131; PULSE 84; RESP 25; TEMP 97.8; O2SAT 99
[2017-12-09] MEDS ORDERED: SODIUM CHLORIDE 0.9% FLUSH 10 ML FLUSH IVF PRN (23:00)
[2017-12-09] MEDS ORDERED: LABETALOL HCL 100 MG/20 ML VIAL IV PUSH ONE (23:00)
[2017-12-09 23:03] VITALS: BP 169/112; PULSE 95; RESP 16; O2SAT 98
[2017-12-09 23:15] LABS: AUTOMATED NEUTROPHIL # 5.7 TH/MM3 (1.8-7.7); BASOPHIL % 0.2 % (0.0-2.0); HEMATOCRIT 47.4 % (35.0-46.0); HEMOGLOBIN 16.4 GM/DL (11.6-15.3); LYMPH % 15.5 % (9.0-44.0); LYMPHOCYTE # 1.2 TH/MM3 (1.0-4.8); MEAN CORPUSCULAR HEMOGLOBIN 33.3 PG (27.0-34.0); MEAN CORPUSCULAR HGB CONC 34.6 % (32.0-36.0); MEAN PLATELET VOLUME 7.2 FL (7.0-11.0); MONO % 9.1 % (0.0-8.0); MONOCYTE # 0.7 TH/MM3 (0-0.9); NEUT % 75.2 % (16.0-70.0); PLATELET COUNT 294 TH/MM3 (150-450); RED BLOOD COUNT 4.93 MIL/MM3 (4.00-5.30); RED CELL DISTRIBUTION WIDTH 13.5 % (11.6-17.2); WHITE BLOOD COUNT 7.6 TH/MM3 (4.0-11.0)
[2017-12-09 23:26] LABS: INTERNATIONAL NORMALIZED RATIO 1.1 RATIO; PROTHROMBIN TIME - PATIENT 10.9 SEC (9.8-11.6)
--- NOTE | 2017-12-09 23:28 | RADRPT ---
EXAM DATE/TIME: 12/09/2017 23:11 [facility] COMPARISON: CT BRAIN W/O CONTRAST, January 31, 2017, 19:26. INDICATIONS : Cephalgia. RADIATION DOSE: 56.35 CTDIvol (mGy) MEDICAL HISTORY : Hypertension. SURGICAL HISTORY : None. ENCOUNTER: Initial ACUITY: 1 day PAIN SCALE: 10/10 LOCATION: cranial TECHNIQUE: Multiple contiguous axial images were obtained of the head. Using automated exposure control and adj ustment of the mA and/or kV according to patient size, radiation dose was kept as low as reasonably a chievable to obtain optimal diagnostic quality images. DICOM format image data is available electro nically for review and comparison. FINDINGS: CEREBRUM: The ventricles are normal for age. No evidence of midline shift, mass lesion, hemorrhage or acute in farction. No extra-axial fluid collections are seen. POSTERIOR FOSSA: The cerebellum and brainstem are intact. The 4th ventricle is midline. The cerebellopontine angle i s unremarkable. EXTRACRANIAL: The visualized portion of the orbits is intact. SKULL: The calvaria is intact. No evidence of skull fracture. CONCLUSION: Stable negative noncontrast CT. Darrell Phillips MD on December 09, 2017 at 23:26 Board Certified Radiologist. This report was verified electronically.
--- NOTE | 2017-12-09 23:42 | RADRPT ---
EXAM DATE/TIME: 12/09/2017 23:16 [facility] COMPARISON: CHEST SINGLE AP, January 16, 2017, 17:28. INDICATIONS : Short of breath. MEDICAL HISTORY : None. SURGICAL HISTORY : None. ENCOUNTER: Initial ACUITY: 1 day PAIN SCORE: 0/10 LOCATION: Bilateral chest FINDINGS: A single view of the chest demonstrates the lungs to be symmetrically aerated without evidence of mas s, infiltrate or effusion. The cardiomediastinal contours are unremarkable. Osseous structures are intact. CONCLUSION: No acute disease. There is no evidence of pneumonia. Darrell Phillips MD on December 09, 2017 at 23:40 Board Certified Radiologist. This report was verified electronically.
[2017-12-09] MEDS ORDERED: ONDANSETRON HCL 4 MG/2 ML VIAL IV PUSH ONE (23:45)
[2017-12-09 23:46] LABS: ALBUMIN 3.9 GM/DL (3.4-5.0); ALT (GPT) 96 U/L (10-53); AST (GOT) 87 U/L (15-37); BICARBONATE 27.6 MEQ/L (21.0-32.0); BLOOD UREA NITROGEN 10 MG/DL (7-18); CALCIUM 9.2 MG/DL (8.5-10.1); CHLORIDE 99 MEQ/L (98-107); CREATININE 0.77 MG/DL (0.50-1.00); GLOMERULAR FILTRATION RATE 79 ML/MIN (>89); GLUCOSE,RANDOM 127 MG/DL (74-106); MAGNESIUM 1.9 MG/DL (1.5-2.5); SODIUM (NA) 134 MEQ/L (136-145)
[2017-12-09 23:48] LABS: ALKALINE PHOSPHATASE 120 U/L (45-117); TOTAL BILIRUBIN ADULT 0.7 MG/DL (0.2-1.0); TOTAL PROTEIN 9.5 GM/DL (6.4-8.2); TROPONIN I 0.09 NG/ML (0.02-0.05)
[2017-12-10] VITALS (12 sets, daily range): BP systolic 111–173; BP diastolic 70–108; PULSE 75–106; RESP 16–22; TEMP 98.1–99.2; O2SAT 96–100
[2017-12-10] MEDS ORDERED: LABETALOL HCL 100 MG/20 ML VIAL IV PUSH ONE
[2017-12-10] MEDS ORDERED: METOCLOPRAMIDE HCL 10 MG/2 ML VIAL IV PUSH ONE
[2017-12-10] MEDS ORDERED: cloNIDine HCL 0.1 MG TAB PO ONE (00:15)
[2017-12-10] MEDS ORDERED: traMADol HCL 50 MG TAB PO ONE (00:15)
[2017-12-10 01:28] LABS: BACTERIA, URINE RARE /hpf; BILIRUBIN, URINE NEG (NEG); BLOOD, URINE TRACE (NEG); GLUCOSE,URINE NEG (NEG); HYALINE CAST, URINE 3 /lpf (RARE); KETONE, URINE 10 mg/dL (NEG); MUCUS URINE FEW /lpf (OCC); NITRITE,URINE NEG (NEG); PH, URINE 6.5 (5.0-8.5); SQUAMOUS EPITHELIAL CELL URINE <1 /hpf (0-5); TRANSITIONAL EPI CELLS, URINE <1 /hpf; URINE COLOR YELLOW (YELLW/STRAW); URINE LEUKOCYTE ESTERASE NEG (NEG)
[2017-12-10] MEDS ORDERED: hydrALAZINE HCL 20 MG/ML VIAL IV PUSH ONE ×2 (02:00→02:30)
[2017-12-10] MEDS ORDERED: ASPIRIN 325 MG TAB PO ONE (02:30)
[2017-12-10] MEDS ORDERED: NITROGLYCERIN 2% OINT 1 GM PACKET TOPICAL ONE (02:30)
[2017-12-10] MEDS ORDERED: ACETAMIN 325 MG/BUTALBITAL 50 MG/CAFFEINE 40 MG TAB PO ONE (02:45)
[2017-12-10] MEDS ORDERED: LORazepam 2 MG/ML VIAL IV PUSH ONE (02:45)
[2017-12-10] MEDS ORDERED: HEPARIN-D5W 25,000 U/250 ML 250 ML IV PRN (04:45)
[2017-12-10] MEDS ORDERED: HEPARIN SODIUM - IV 10,000 UNITS/10 ML VIAL IV PUSH ONE (04:45)
[2017-12-10] MEDS ORDERED: SODIUM CHLORIDE 0.9% FLUSH 10 ML FLUSH IV FLUSH PRN (05:00)
[2017-12-10] MEDS ORDERED: METOPROLOL TARTRATE 25 MG TAB PO ONE (05:00)
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
[2017-12-10 05:41] LABS: INTERNATIONAL NORMALIZED RATIO 1.1 RATIO; PROTHROMBIN TIME - PATIENT 11.2 SEC (9.8-11.6)
--- NOTE | 2017-12-10 07:53 | EKG ---
Date Performed: 12/10/2017 Time Performed: 02:57:11 PTAGE: 52 years EKG: Sinus rhythm POSSIBLE RIGHT ATRIAL ENLARGEMENT POSSIBLE LEFT ATRIAL ENLARGEMENT BORDERLINE ECG PREVIOUS TRACING : 02/01/2017 01.48 DOCTOR: Edwin Skinner Interpretating Date/Time 12/10/2017 07:51:00
--- NOTE | 2017-12-10 07:55 | EKG ---
Date Performed: 12/09/2017 Time Performed: 22:50:46 PTAGE: 52 years EKG: Sinus rhythm NORMAL ECG NO PREVIOUS TRACING DOCTOR: Edwin Skinner Interpretating Date/Time 12/10/2017 07:52:22
--- NOTE | 2017-12-10 08:16 | HHI.HP ---
[facility] Primary [facility] Physician No Primary Care Physician Admission Diagnosis Hypertensive Urgency, Cardiac Strain Diagnoses: Chief Complaint: "seeing stars, Kaleidoscope" Travel History International Travel<30 Days: No Contact w/Intl Traveler <30 Da: No Traveled to Known Affected Are: No History of Present Illness Patient is a 52 years old female, post menopausal with history of alcohol abuse in the past, history of seizure disorder , hypertension, states history of chronic headaches states she ran out of all her medications- few months ago. States her last seizure episode was in January 2017. Last evening- complains of severe headache described as like "eyeballs are going to pop out, seeing stars- like kaleidoscope " that scared her and prompted her to call EMS and was brought in here for evaluation. On intitial evaluation- with a BP of 220/130 associated with shortness of breath and nausea . she was promptly given Labetalol 10 mg IV x 2, clonidine 0.1 mg and IV Hydralazine, IV zofran. and finally= IV Ativan x 1- that helped - per ER nurse She denies any orthopnea, PND, occasional leg swelling..She states history of chronic back pain but Ambulates independently with no assistive device. she did mention that she was on dilaudid in the past for back pain She does not recall any of her medications except being on dilaudid Went over med list with her- "don't recall" Review of Systems Constitutional: DENIES: Diaphoretic episodes, Fatigue, Fever, Weight gain, Weight loss, Chills, Dizziness, Change in appetite, Night Sweats Endocrine: DENIES: Abnorml menstrual pattern, Heat/cold intolerance, Polydipsia , Polyuria, Polyphagia Eyes: DENIES: Blurred vision, Diplopia, Eye inflammation, Eye pain, Vision loss , Photosensitivity, Double Vision Ears, nose, mouth, throat: DENIES: Tinnitus, Hearing loss, Vertigo, Nasal discharge, Oral lesions, Throat pain, Hoarseness, Ear Pain, Running Nose, Epistaxis, Sinus Pain, Toothache, Odynophagia Respiratory: DENIES: Apneas, Cough, Snoring, Wheezing, Hemoptysis, Sputum production, Shortness of breath Cardiovascular: DENIES: Chest pain, Palpitations, Syncope, Dyspnea on Exertion , PND, Lower Extremity Edema, Orthopnea, Claudication Gastrointestinal: DENIES: Abdominal pain, Black stools, Bloody stools, Constipation, Diarrhea, Nausea, Vomiting, Difficulty Swallowing, Anorexia Genitourinary: DENIES: Abnormal vaginal bleeding, Dysmenorrhea, Dyspareunia, Sexual dysfunction, Urinary frequency, Urinary incontinence, Urgency, Hematuria , Dysuria, Nocturia, Vaginal discharge Musculoskeletal: COMPLAINS OF: Back pain, DENIES: Joint pain, Muscle aches, Stiffness, Joint Swelling, Neck pain Integumentary: DENIES: Abnormal pigmentation, Pruritus, Rash, Nail changes, Breast masses, Breast skin changes, Nipple discharge Hematologic/lymphatic: DENIES: Bruising, Lymphadenopathy Immunologic/allergic: DENIES: Eczema, Urticaria Neurologic: COMPLAINS OF: Seizures Psychiatric: DENIES: Anxiety, Confusion, Mood changes, Depression, Hallucinations, Agitation, Suicidal Ideation, Homicidal Ideation, Delusions Past Family Social History Past Medical History hypertension seizure disorder Histor of ? parietal lobe mass Abnormal LFTs- likely etoh related Gastritis Past Surgical History appendectomy Reported Medications states she is not on any meds currently - was supposed to be on keppra, - passingly mentioned that she takes dilaudid for pain Allergies: Coded Allergies: No Known Allergies (Verified Allergy, Unknown, 12/10/17) Family History non contributory Social History smokes a pack per day for 30 years hsitory of alcohol use- states last drink was about a week ago- 4pk per day Physical Exam Vital Signs Vital Signs Date Time Temp Pulse Resp B/P (MAP) Pulse Ox O2 Delivery O2 Flow Rate FiO2 12/10/17 05:18 106 16 133/72 (92) 100 12/10/17 03:31 75 16 140/70 (93) 99 Room Air 12/10/17 02:28 80 20 173/102 (125) 99 Room Air 12/09/17 23:03 95 16 169/112 (131) 98 12/09/17 22:52 Room Air 12/09/17 22:49 97.8 84 25 217/127 (157) 99 Room Air 205/131 (155) Physical Exam GENERAL: in no apparent distress. SKIN: No rashes, ecchymoses or lesions. Cool and dry. HEAD: Atraumatic. Normocephalic. No temporal or scalp tenderness. EYES: Pupils equal round and reactive. Extraocular motions intact. No scleral icterus. No injection or drainage. ENT: Nose without bleeding, Throat without erythema, tonsillar hypertrophy or exudate. Uvula midline. Airway patent. NECK: Trachea midline. No JVD or lymphadenopathy. Supple, nontender, neck supple , no rigidity CARDIOVASCULAR: Regular rate and rhythm without murmurs, gallops, or rubs. RESPIRATORY: Clear to auscultation. Breath sounds equal bilaterally. No wheezes , rales, or rhonchi. GASTROINTESTINAL: Abdomen soft, non-tender, nondistended No guarding. MUSCULOSKELETAL: Extremities without clubbing, cyanosis, or edema. No joint tenderness, effusion, or edema noted. No calf tenderness. Negative Homans sign bilaterally. NEUROLOGICAL: Awake and alert. Cranial nerves II through XII intact. EOM full range of motion, VF grossly intact, good gag, no facial asymmetry Motor and sensory grossly within normal limits. Five out of 5 muscle strength in all muscle groups. Normal speech. absent babinski, Laboratory Laboratory Tests Test 12/09/17 23:01 12/10/17 01:05 12/10/17 03:00 12/10/17 05:10 White Blood Count 7.6 Red Blood Count 4.93 Hemoglobin 16.4 Hematocrit 47.4 Mean Corpuscular Volume 96.0 Mean Corpuscular Hemoglobin 33.3 Mean Corpuscular Hemoglobin Concent 34.6 Red Cell Distribution Width 13.5 Platelet Count 294 Mean Platelet Volume 7.2 Neutrophils (%) (Auto) 75.2 Lymphocytes (%) (Auto) 15.5 Monocytes (%) (Auto) 9.1 Eosinophils (%) (Auto) 0.0 Basophils (%) (Auto) 0.2 Neutrophils # (Auto) 5.7 Lymphocytes # (Auto) 1.2 Monocytes # (Auto) 0.7 Eosinophils # (Auto) 0.0 Basophils # (Auto) 0.0 CBC Comment DIFF FINAL Differential Comment Prothrombin Time 10.9 11.2 Prothromb Time International Ratio 1.1 1.1 Activated Partial Thromboplast Time 26.6 26.7 Blood Urea Nitrogen 10 Creatinine 0.77 Random Glucose 127 Total Protein 9.5 Albumin 3.9 Calcium Level 9.2 Magnesium Level 1.9 Alkaline Phosphatase 120 Aspartate Amino Transf (AST/SGOT) 87 Alanine Aminotransferase (ALT/SGPT) 96 Total Bilirubin 0.7 Sodium Level 134 Potassium Level 3.7 Chloride Level 99 Carbon Dioxide Level 27.6 Anion Gap 7 Estimat Glomerular Filtration Rate 79 Total Creatine Kinase 94 Troponin I 0.09 0.14 B-Type Natriuretic Peptide 389 Urine Color YELLOW Urine Turbidity CLEAR Urine pH 6.5 Urine Specific Baltic 1.021 Urine Protein 100 Urine Glucose (UA) NEG Urine Ketones 10 Urine Occult Blood TRACE Urine Nitrite NEG Urine Bilirubin NEG Urine Urobilinogen LESS THAN 2.0 Urine Leukocyte Esterase NEG Urine RBC 1 Urine WBC 1 Urine Squamous Epithelial Cells <1 Urine Transitional Epithelial Cells <1 Urine Bacteria RARE Urine Hyaline Casts 3 Urine Mucus FEW Microscopic Urinalysis Comment CULT NOT INDICATED Urine Opiates Screen POS Urine Barbiturates Screen NEG Urine Amphetamines Screen NEG Urine Benzodiazepines Screen POS Urine Cocaine Screen NEG Urine Cannabinoids Screen NEG Result Diagram: 12/09/17 2301 12/09/17 2301 Imaging Last Impressions Chest X-Ray 12/09/17 2250 Signed Impressions: Service Date/Time: Saturday, December 09, 2017 23:16 - CONCLUSION: No acute disease. There is no evidence of pneumonia. Darrell Phillips MD Head CT 12/09/17 0000 Signed Impressions: Service Date/Time: Saturday, December 09, 2017 23:11 - CONCLUSION: Stable negative noncontrast CT. MD Whitney Lovelacei VTE Risk Assessment Caprini VTE Risk Assessment: Mod/High Risk (score >= 2) VTE Pharm Contraindication: sz- may need workup like LP if deemed necessary by Neuro Caprini Risk Assessment Model Point Value = 1 Point Value = 2 Point Value = 3 Point Value = 5 Age 41-60 Minor surgery BMI > 25 kg/m2 Swollen legs Varicose veins or History of unexplained or recurrent spontaneous Oral contraceptives or hormone replacement Sepsis (< 1 month) Serious lung disease, including pneumonia (< 1 month) Abnormal pulmonary function Acute myocardial infarction Congestive heart failure (< 1 month) History of inflammatory bowel disease Medical patient at bed rest Age 61-74 Arthroscopic surgery Major open surgery (> 45 min) Laparoscopic surgery (> 45 min) Malignancy Confined to bed (> 72 hours) Immobilizing plaster cast Central venous access Age >= 75 History of VTE Family history of VTE Factor V Leiden Prothrombin [id number] Lupus anticoagulant Anticardiolipin antibodies Elevated serum homocysteine Heparin-induced thrombocytopenia Other congenital or acquired thrombophilia Stroke (< 1 month) Elective arthroplasty Hip, pelvis, or leg fracture Acute spinal cord injury (< 1 month) Prophylaxis Regimen Total Risk Factor Score Risk Level Prophylaxis Regimen 0-1 Low Early ambulation 2 Moderate Order ONE of the following: *Sequential Compression Device (SCD) *Heparin 5000 units SQ BID 3-4 Higher Order ONE of the following medications: *Heparin 5000 units SQ TID *Enoxaparin/Lovenox 40 mg SQ daily (WT < 150 kg, CrCl > 30 mL/min) *Enoxaparin/Lovenox 30 mg SQ daily (WT < 150 kg, CrCl > 10-29 mL/min) *Enoxaparin/Lovenox 30 mg SQ BID (WT < 150 kg, CrCl > 30 mL/min) AND/OR *Sequential Compression Device (SCD) 5 or more Highest Order ONE of the following medications: *Heparin 5000 units SQ TID (Preferred with Epidurals) *Enoxaparin/Lovenox 40 mg SQ daily (WT < 150 kg, CrCl > 30 mL/min) *Enoxaparin/Lovenox 30 mg SQ daily (WT < 150 kg, CrCl > 10-29 mL/min) *Enoxaparin/Lovenox 30 mg SQ BID (WT < 150 kg, CrCl > 30 mL/min) AND *Sequential Compression Device (SCD) Assessment and Plan Assessment and Plan 52 years odl female presenting with HYpertensive urgency- with possible SZ History of Seizure disorder- non compliant with meds History of parietal lesion on previous MRI- - deemed to be benign and was advised ff up MRI- lost to ff up get an EEG. get an MRI neuro checks Neurology consult. Start keppra 500 mg q 12 started on coreg - monitor and adjust IV prn meds- clonidine prn Indeterminate troponins /elevated BNP- likely from Hypertensive urgency EKG reviewed- no acute STTW changes- LVH by voltage. CXR - reviewed clinically no signs of volume excess. no CP continue on ASA. Heparin drip check echo- EF started on Coreg- -.Monitor BP and adjust cardiology consulted History of alcohol abuse [facility] protocol elevated-transaminases- near baseline from 2017- -likely alcohol related ff LFTs History of gastritis PPI Hyperproteinemia on labs check SPEP Chronic back pain prn pain meds TEDs/SCDs Discussed Condition With patient Physician Certification 2 Midnight Certification Type: Admission for Inpatient Services Order for Inpatient Services The services are ordered in accordance with Medicare regulations or non- Medicare payer requirements, as applicable. In the case of services not specified as inpatient-only, they are appropriately provided as inpatient services in accordance with the 2-midnight benchmark. Estimated LOS (days): 3 days is the estimated time the patient will need to remain in the hospital, assuming treatment plan goals are met and no additional complications. Post-Hospital Plan: Not yet determined Taty Cavanaugh MD Dec 10, 2017 08:16
[2017-12-10] MEDS ORDERED: cloNIDine HCL 0.1 MG TAB PO PRN (08:30)
[2017-12-10] MEDS ORDERED: PANTOPRAZOLE SODIUM 40 MG VIAL IV PUSH SCH (08:45)
[2017-12-10] MEDS ORDERED: LORazepam 1 MG TAB PO PRN (08:45)
[2017-12-10] MEDS ORDERED: FLUMAZENIL 0.5 MG/5 ML VIAL IV PUSH PRN (08:45)
[2017-12-10] MEDS ORDERED: LORazepam 2 MG TAB PO PRN (08:45)
[2017-12-10] MEDS ORDERED: LORazepam 2 MG/ML VIAL IV PUSH PRN ×4 (08:45)
[2017-12-10] MEDS: SODIUM CHLORIDE 0.9% FLUSH 10 ML FLUSH IV FLUSH SCH ×2 (09:00→21:55)
[2017-12-10] MEDS ORDERED: CARVEDILOL 3.125 MG TAB PO SCH (09:00)
[2017-12-10] MEDS ORDERED: levETIRAcetam INJ 100 ML IV SCH (09:00)
[2017-12-10] MEDS: PANTOPRAZOLE SOD 40 MG DELAYED RELEASE TAB PO SCH (09:42)
[2017-12-10] MEDS: CARVEDILOL 3.125 MG TAB PO SCH ×2 (09:42→21:55)
[2017-12-10] MEDS: levETIRAcetam INJ 500 MG in SODIUM CHLORIDE 0.9% INJ 100 ML IV SCH ×2 (10:01→21:55)
--- NOTE | 2017-12-10 10:24 | MB ---
cc: ABDIAS LINARES M.D. DATE OF CONSULTATION 12/10/2017 DATE OF 1965 REASON FOR CONSULTATION Possible seizure. HISTORY OF PRESENT ILLNESS The patient is a very poor historian, but history is taken from the chart. Apparently she stated she had a headache and was having kaleidoscope type vision. She has a known history hypertension and chronic headaches. She has a history of alcohol abuse and possible seizure. She has been out of her meds, but cannot list what meds they are. A few months back, last seizure may have been in January of last year. Apparently last night there was a headache, kaleidoscope vision, called for the ambulance. She was found to have initially a blood pressure of 220/130, given some Labetalol, Clonidine, Hydralazine and Zofran. PAST MEDICAL HISTORY As stated, also gastritis. PAST SURGICAL HISTORY Appendectomy HOME MEDICATIONS Apparently may have been on Keppra and possibly Dilaudid. ALLERGIES None reported. FAMILY HISTORY Noncontributory SOCIAL HISTORY Smokes a pack a day for 30 years. History of alcohol use four packs daily. Last drink about a week ago per chart. EXAMINATION VITAL SIGNS: Temperature 97.8, heart rate 84, respiratory rate 17, blood pressure 111/77, sating 97% room air. NECK: Supple. No appreciable bruits. HEART: Regular. NEUROLOGIC: She is awake and alert. She is fluent. Her pupils reactive. There is no nystagmus. Her face looks symmetrical. Her tongue is midline. Motor meneses I do not appreciate any weakness. No drift or leg lag. Toes are both downgoing. No tremor on intention. Sensory normal. Gait is withheld. LABORATORY DATA Her CBC hemoglobin 16.4, platelets are 294,000. Coag panel was normal. Her chemistries sodium 134, her troponin however is at 0.09 and 0.14 respectively. BNP 389, glucose 127, GFR 79, AST 87, ALT 96. Toxicology positive for benzos and opiates. Urine culture is not indicated. Some mucus, trace blood, 10 ketones, 100 protein. IMAGING STUDIES Chest x-ray, nothing acute. CT head stable, negative CT. IMPRESSION Possible seizures, questionably due to alcohol withdrawal. Was apparently in the past on Keppra. Recommend continuing Keppra 500 mg q. 12, however if she has chronic headaches, Topiramate may be a better option, however, that would be started a left lower dose 50 mg initially at night increasing in a week to 50 mg b.i.d. However, if its alcohol withdrawal seizures, a benzodiazepine would be of more appropriate. We will get an EEG, get an MRI, maintain seizure precautions. Watch for any alcohol withdrawal, folic acid, thiamine, and multivitamins. Follow up with an aspirin. She is on a heparin drip. Cardiology will see her and further recommendations will be made as needed. Please call with any questions or concerns. MD PREM Pope/SANGEETHA /9:41 AM /10:16 AM
[2017-12-10 10:50] LABS: ALBUMIN 3.5 GM/DL (3.4-5.0); ALT (GPT) 70 U/L (10-53); AST (GOT) 58 U/L (15-37); BICARBONATE 25.6 MEQ/L (21.0-32.0); BLOOD UREA NITROGEN 11 MG/DL (7-18); CALCIUM 9.2 MG/DL (8.5-10.1); CHLORIDE 99 MEQ/L (98-107); CREATININE 0.74 MG/DL (0.50-1.00); GLOMERULAR FILTRATION RATE 83 ML/MIN (>89); GLUCOSE,RANDOM 114 MG/DL (74-106); SODIUM (NA) 134 MEQ/L (136-145)
[2017-12-10 10:54] LABS: ALKALINE PHOSPHATASE 105 U/L (45-117); TOTAL BILIRUBIN ADULT 0.8 MG/DL (0.2-1.0); TOTAL PROTEIN 8.6 GM/DL (6.4-8.2); TROPONIN I 0.13 NG/ML (0.02-0.05)
--- NOTE | 2017-12-10 13:33 | RADRPT ---
EXAM DATE/TIME: 12/10/2017 12:30 [place] COMPARISON: CT BRAIN W/O CONTRAST, December 09, 2017, 23:11. MRI BRAIN W/O CONTRAST, February 01, 2017, 17:59. MRI BRAIN W & W/O CONTRAST, February 02, 2017, 15:32. INDICATIONS : Seizures. CONTRAST: 16 cc Omniscan (gadodiamide) IV MEDICAL HISTORY : Seizures. Hypertension. SURGICAL HISTORY : Appendectomy. ENCOUNTER: Initial ACUITY: 2 day PAIN SCORE: 2/10 LOCATION: Bilateral cranial TECHNIQUE: Multiplanar, multisequence MRI of the brain was performed both prior to and following the administrat ion of paramagnetic contrast. FINDINGS: There is subtle cortical and subcortical T2 hyperintensity present most conspicuously in the parafalc ine high convexity frontal and parietal regions and in the occipital regions bilaterally slightly mor e pronounced on the left than the right. There is no associated diffusion restriction. No definite ab normal parenchymal enhancement noted. No mass effect or brain shift identified. There is no discrete mass. Nothing to suggest hemorrhage or acute infarction. CONCLUSION: Patchy areas of abnormal parenchymal brain signal intensity similar in appearance, however more exten sive than on prior MRIs. Ezekiel Ashley MD on December 10, 2017 at 13:22 Board Certified Radiologist. This report was verified electronically.
--- NOTE | 2017-12-10 14:32 | MB ---
cc: DAVONTE SHELTON M.D. DATE OF CONSULTATION 12/10/2017 REASON FOR CONSULTATION Abnormal troponin levels. HISTORY OF PRESENT ILLNESS The patient is a 52-year-old white female with a history of chronic back pain, gastritis, alcohol abuse, seizure disorder, who presented to the hospital mainly with complaints of headache and visual disturbances. She had been prescribed antiseizure medication in the past but she has not been taking this medication recently. On admission her blood pressure was found to be markedly elevated. She denies any history of hypertension, diabetes, stroke. She also denies chest pain, shortness of breath, paroxysmal nocturnal dyspnea, palpitations, lightheadedness, near-syncope. She thinks she may have had some minimal pedal edema on the left recently. PAST MEDICAL HISTORY 1. Chronic back pain. 2. Gastritis. 3. Seizure disorder. PAST SURGICAL HISTORY Appendectomy. MEDICATIONS Cardiac medications at home are none. ALLERGIES No known drug allergies. FAMILY HISTORY Unknown. The patient is apparently adopted. SOCIAL HISTORY The patient smokes about a pack of cigarettes per day. She drinks beer on a daily basis. REVIEW OF SYSTEMS As in the history of present illness, otherwise negative or noncontributory. She also denies abdominal pain, melena, fevers, flu-like symptoms. PHYSICAL EXAMINATION VITAL SIGNS: On physical examination her blood pressure is 130/77 with a pulse of 78, respirations 17. GENERAL: In general she is a well-developed, well-nourished white female in no acute distress. HEENT/NECK: Jugular venous pressure is normal. Carotid pulses are 2+ bilaterally and without bruits. CHEST: Examination of the chest reveals clear lung yi. CARDIAC: On cardiac examination she has a regular rhythm and rate without S3, S4, or murmur. ABDOMEN: On abdominal examination she has a soft, nontender abdomen. Bowel sounds are present. There is no definite hepatosplenomegaly. EXTREMITIES: Examination of the extremities reveals no clubbing, cyanosis or edema. IMAGING Chest x-ray shows no acute disease. EKG EKG shows normal sinus rhythm, normal EKG. LABORATORY Laboratory data includes WBC 7.6, hemoglobin 16.4, platelets 294, potassium 3.6, BUN 11, creatinine 0.74, AST 58, ALT 70, CK 94, troponin 0.14. IMPRESSION Minimally abnormal troponin levels in this 52-year-old white female with a history of alcohol abuse, seizure disorder, gastritis, admitted with headache and visual disturbances. I doubt that the slightly elevated troponin levels are due to acute coronary syndrome. There are more likely to be due to the elevated blood pressures on admission (217/127 initially). EKG is normal. CK levels are negative for myocardial infarction. The patient has had no recent angina-like symptoms. Except for tobacco abuse she has no major coronary artery disease risk factors. There is no definite evidence for congestive heart failure. She is now normotensive on single drug therapy (carvedilol). RECOMMENDATIONS 1. No additional cardiac work-up at this time. 2. The heparin drip can be stopped from a cardiac standpoint. 3. Will follow-up as needed. Davonte Shelton MD GHJanene/SEEMA /1:57 PM /2:22 PM DOMINIQUE
[2017-12-10] MEDS ORDERED: GADODIAMIDE PF 287 MG/ML 5 ML VIAL (for RAD MRI) IVCONTRAST ONE (14:58)
--- NOTE | 2017-12-10 15:03 | EKG ---
Date Performed: 12/10/2017 Time Performed: 09:55:28 PTAGE: 52 years EKG: Sinus rhythm POSSIBLE LEFT ATRIAL ENLARGEMENT BORDERLINE ECG INTERPRETATION BASED ON A DEFAULT AGE OF 40 YEARS PREVIOUS TRACING : 12/10/2017 02.57 DOCTOR: Edwin Skinner Interpretating Date/Time 12/10/2017 15:02:20
[2017-12-10] MEDS: ACETAMINOPHEN/HYDROcodone 325 MG/5 MG TAB PO PRN (18:16)
--- NOTE | 2017-12-10 18:44 | MG ---
cc: OSWALDO DOCKERY M.D. Lab No: Date: 12/10/2017 Age: Sex: F Race: REQUESTING PHYSICIAN Dr. Cavanaugh INDICATION An EEG was obtained on this 52-year-old patient being evaluated for headaches, flashing lights. MEDICATIONS Include Keppra. DESCRIPTION The patient is awake and asleep. There are a lot of sleepy spindles. There are beta rhythms diffusely. Intermittently there is some shifting, slowing possibly left more than right. The patient is mostly asleep during the recording. There is awakening during photic stimulation and some bilateral driving response. INTERPRETATION Probably normal awake and asleep EEG. Some shifting slowing possibly worse on the left. Clinical and imaging correlation. No epileptiform features present. Oswaldo Dockery MD OFC/KK /6:20 PM /6:28 PM
[2017-12-10] MEDS: hydrALAZINE HCL 20 MG/ML VIAL IV PUSH PRN (23:35)
[2017-12-11] VITALS (10 sets, daily range): BP systolic 133–174; BP diastolic 90–117; PULSE 78–103; RESP 14–22; TEMP 97.2–97.8; O2SAT 96–100
[2017-12-11] MEDS ORDERED: MELATONIN 5 MG TAB PO ONE (01:30)
[2017-12-11] MEDS: ACETAMINOPHEN/HYDROcodone 325 MG/5 MG TAB PO PRN ×4 (01:50→20:31)
[2017-12-11] MEDS: hydrALAZINE HCL 20 MG/ML VIAL IV PUSH PRN (06:45)
[2017-12-11] MEDS ORDERED: CARVEDILOL 12.5 MG TAB PO SCH ×2 (07:15→07:30)
[2017-12-11] MEDS: levETIRAcetam 500 MG TAB PO SCH ×2 (08:18→20:25)
[2017-12-11] MEDS: SODIUM CHLORIDE 0.9% FLUSH 10 ML FLUSH IV FLUSH SCH ×2 (08:18→20:25)
[2017-12-11] MEDS: PANTOPRAZOLE SOD 40 MG DELAYED RELEASE TAB PO SCH (08:19)
--- NOTE | 2017-12-11 08:56 | HHI.PR ---
Subjective Remarks complains of low back discomfort- states - had several back surgeries and is in pain denies any headaches now staets 3-4 beers a day- - last drink a week ago "hungry" Objective Vitals Vital Signs Date Time Temp Pulse Resp B/P (MAP) Pulse Ox O2 Delivery O2 Flow Rate FiO2 12/11/17 06:44 174/112 (132) 12/11/17 04:00 97.8 83 19 158/104 (122) 97 12/11/17 03:53 103 12/11/17 00:00 97.5 94 18 168/117 (134) 98 12/10/17 23:50 93 12/10/17 20:00 98.1 80 16 166/108 (127) 99 12/10/17 19:49 78 12/10/17 15:50 82 16 150/92 (111) 97 12/10/17 15:47 85 12/10/17 14:54 99.2 87 17 148/103 (118) 96 12/10/17 11:00 98.7 90 22 146/93 (110) 97 12/10/17 09:41 78 17 130/77 (94) 98 Room Air I/O 12/10/17 12/10/17 12/10/17 12/11/17 12/11/17 12/11/17 07:00 15:00 23:00 07:00 15:00 23:00 Intake Total 105 ml 500 ml Balance 105 ml 500 ml Intake Oral 500 ml IV Total 105 ml # Voids 2 Result Diagram: 12/09/17 2301 12/10/17 0949 Imaging Last Impressions Brain MRI 12/10/17 0000 Signed Impressions: Service Date/Time: Sunday, December 10, 2017 12:30 - CONCLUSION: Patchy areas of abnormal parenchymal brain signal intensity similar in appearance, however more extensive than on prior MRIs. Ezekiel Ashley MD Chest X-Ray 12/09/17 2250 Signed Impressions: Service Date/Time: Saturday, December 09, 2017 23:16 - CONCLUSION: No acute disease. There is no evidence of pneumonia. Darrell Phillips MD Head CT 12/09/17 0000 Signed Impressions: Service Date/Time: Saturday, December 09, 2017 23:11 - CONCLUSION: Stable negative noncontrast CT. Darrell Phillips MD Objective Remarks awake and alert, but restless anicteric lungs- no rales regular rhythm abdomen soft, nontender extremities no edema moves all extremities spontaneously CN grossly intact A/P Assessment and Plan 52 years odl female presenting with HYpertensive urgency- with possible SZ. History of Seizure disorder- non compliant with meds History of parietal lesion on previous MRI- - deemed to be benign and was advised ff up MRI- lost to ff up EEG- no epileptiform features. continue on Keppra 500 mg po bid Hypertensive urgency- BP erratic Indeterminate troponins /elevated BNP- likely from Hypertensive urgency. NO need for further work up Increase Coreg to 12.5 mg po bid Add Dyazide 37.5/25 mg po daily Check Echo History of alcohol abuse [facility] protocol. Start Librium scheduled elevated-transaminases- near baseline from 2017- -likely alcohol related ff LFTs History of gastritis PPI Hyperproteinemia on labs check SPEP- pending Chronic back pain prn Lortab PT consult- Out of bed to chair CM consult for DC planning Taty Cavanaugh MD Dec 11, 2017 08:56
[2017-12-11] MEDS ORDERED: TEMAZEPAM 7.5 MG CAP PO PRN (09:15)
[2017-12-11] MEDS: TRIAMTERENE/HCTZ 37.5 MG/25 MG CAP PO SCH (10:54)
[2017-12-11] MEDS: chlordiazePOXIDE 25 MG CAP PO SCH ×3 (10:54→20:37)
--- NOTE | 2017-12-11 11:41 | ECHRPT ---
Indication: CARDIOMYOPATHY CONCLUSIONS The left ventricular systolic function is hyperdynamic with an estimated ejection fraction in the ra nge of 65- 70%. Normal left ventricular size. Mild concentric left ventricular hypertrophy. No regional wall motion abnormalities are present. The pulmonary valve is not well visualized. BP: 130 / 77 HR: 78 Rhythm: MEASUREMENTS (Male / Female) Normal Values Technical Quality: 2D ECHO LV Diastolic Diameter PLAX 3.9 cm 4.2 - 5.9 / 3.9 - 5.3 cm LV Systolic Diameter PLAX 2.6 cm IVS Diastolic Thickness 1.3 cm 0.6 - 1.0 / 0.6 - 0.9 cm LVPW Diastolic Thickness 1.3 cm 0.6 - 1.0 / 0.6 - 0.9 cm LV Relative Wall Thickness 0.7 RV Internal Dim ED PLAX 3.3 cm LVOT Diameter 1.7 cm LA Systolic Diameter LX 3.1 cm 3.0 - 4.0 / 2.7 - 3.8 cm LV Ejection Fraction MOD 4C 67.4 % LV Cardiac Index MOD 4C 1197.8 cm/minm LV Ejection Fraction 4C AL 69.7 % LV Cardiac Index 4C AL 1287.6 cm/minm M-MODE Aortic Root Diameter MM 2.7 cm LA Systolic Diameter MM 3.0 cm LA Ao Ratio MM 1.1 AV Cusp Separation MM 1.7 cm DOPPLER AV Peak Velocity 157.0 cm/s AV Peak Gradient 9.9 mmHg LVOT Peak Velocity 136.0 cm/s LVOT Peak Gradient 7.4 mmHg AV Area Cont Eq pk 2.0 cm MV Area PHT 5.4 cm Mitral E Point Velocity 53.8 cm/s Mitral A Point Velocity 83.4 cm/s Mitral E to A Ratio 0.6 LV E' Lateral Velocity 6.7 cm/s Mitral E to LV E' Lateral Ratio 8.0 LV E' Septal Velocity 5.8 cm/s Mitral E to LV E' Septal Ratio 9.4 PV Peak Velocity 103.0 cm/s PV Peak Gradient 4.2 mmHg FINDINGS LEFT VENTRICLE The left ventricular systolic function is hyperdynamic with an estimated ejection fraction in the ra nge of 65- 70%. Normal left ventricular size. Mild concentric left ventricular hypertrophy. No regional wall motion abnormalities are present. RIGHT VENTRICLE Normal right ventricular size and systolic function. LEFT ATRIUM The left atrial size is normal. RIGHT ATRIUM The right atrial size is normal. ATRIAL SEPTUM Normal atrial septal thickness without atrial level shunting by limited color doppler interrogation. AORTA The aortic root and proximal ascending aorta are normal in size on limited imaging. MITRAL VALVE Structurally normal mitral valve. No mitral valve stenosis or regurgitation. AORTIC VALVE Trileaflet aortic valve. No aortic valve stenosis or regurgitation. TRICUSPID VALVE Structurally normal tricuspid valve. No tricuspid valve stenosis or regurgitation. PULMONARY VALVE The pulmonary valve is not well visualized. VESSELS The inferior vena cava is normal in size. PERICARDIUM No pericardial effusion. Tc Lockhart MD, FACC, [facility] [place] (Electronically Signed) Final Date:11 December 2017 11:41
[2017-12-11] MEDS ORDERED: POTASSIUM CHLORIDE 20 MEQ CONTROLLED RELEASE TAB PO ONE (15:00)
[2017-12-11] MEDS: METOPROLOL TARTRATE 50 MG TAB PO SCH (20:25)
[2017-12-11 22:08] LABS: ALB/GLOB RATIO (SPE) 0.96 (1.39-2.23)
[2017-12-12] VITALS (11 sets, daily range): BP systolic 93–158; BP diastolic 60–94; PULSE 72–93; RESP 18–20; TEMP 97.1–98.8; O2SAT 94–100
[2017-12-12] MEDS ORDERED: KETOROLAC TROMETHAMINE 30 MG/ML (IVP) VIAL IV PUSH ONE (00:15)
[2017-12-12] MEDS: chlordiazePOXIDE 25 MG CAP PO SCH ×3 (04:11→20:43)
[2017-12-12] MEDS: ACETAMINOPHEN/HYDROcodone 325 MG/5 MG TAB PO PRN (04:12)
[2017-12-12] MEDS: SODIUM CHLORIDE 0.9% FLUSH 10 ML FLUSH IV FLUSH SCH ×2 (07:29→20:44)
[2017-12-12 07:40] LABS: ALBUMIN 3.8 GM/DL (3.4-5.0); ALT (GPT) 52 U/L (10-53); AST (GOT) 32 U/L (15-37); BICARBONATE 25.6 MEQ/L (21.0-32.0); BLOOD UREA NITROGEN 15 MG/DL (7-18); CALCIUM 9.7 MG/DL (8.5-10.1); CHLORIDE 98 MEQ/L (98-107); CREATININE 0.84 MG/DL (0.50-1.00); GLOMERULAR FILTRATION RATE 72 ML/MIN (>89); GLUCOSE,RANDOM 100 MG/DL (74-106); SODIUM (NA) 132 MEQ/L (136-145)
[2017-12-12 07:43] LABS: ALKALINE PHOSPHATASE 96 U/L (45-117); TOTAL BILIRUBIN ADULT 0.9 MG/DL (0.2-1.0); TOTAL PROTEIN 9.3 GM/DL (6.4-8.2)
--- NOTE | 2017-12-12 07:44 | HHI.PR ---
Subjective Remarks complains of back pain- chronic- [place] 5 not helping no constipation no headaches, no further seiziure episodes anxious and angry - regarding [facility] protocol- Objective Vitals Vital Signs Date Time Temp Pulse Resp B/P (MAP) Pulse Ox O2 Delivery O2 Flow Rate FiO2 12/12/17 04:00 85 12/12/17 04:00 97.6 93 19 158/60 (92) 97 12/12/17 00:03 74 12/12/17 00:00 98.8 77 18 148/93 (111) 94 12/11/17 20:21 97.8 83 14 156/104 (121) 98 12/11/17 20:05 85 12/11/17 16:00 97.8 84 16 133/90 (104) 100 12/11/17 15:37 78 12/11/17 12:00 97.7 79 18 135/92 (106) 97 12/11/17 08:00 95 12/11/17 08:00 97.2 95 22 144/93 (110) 96 I/O 12/11/17 12/11/17 12/11/17 12/12/17 12/12/17 12/12/17 07:00 15:00 23:00 07:00 15:00 23:00 Intake Total 500 ml 540 ml 200 ml Output Total 950 ml 600 ml Balance 500 ml -410 ml -400 ml Intake Oral 500 ml 540 ml 200 ml Output Urine Total 950 ml 600 ml # Voids 2 # Bowel Movements 1 1 Result Diagram: 12/09/17 2301 12/10/17 0949 Imaging Last Impressions Brain MRI 12/10/17 0000 Signed Impressions: Service Date/Time: Sunday, December 10, 2017 12:30 - CONCLUSION: Patchy areas of abnormal parenchymal brain signal intensity similar in appearance, however more extensive than on prior MRIs. Ezekiel Ashley MD Chest X-Ray 12/09/17 2250 Signed Impressions: Service Date/Time: Saturday, December 09, 2017 23:16 - CONCLUSION: No acute disease. There is no evidence of pneumonia. Darrell Phillips MD Head CT 12/09/17 0000 Signed Impressions: Service Date/Time: Saturday, December 09, 2017 23:11 - CONCLUSION: Stable negative noncontrast CT. Darrell Phillips MD Objective Remarks awake and alert, no acute distress anicteric lungs- no rales regular rhythm abdomen soft, nontender extremities no edema moves all extremities spontaneously CN grossly intact A/P Assessment and Plan 52 years odl female presenting with HYpertensive urgency- with possible SZ. History of Seizure disorder- non compliant with meds History of parietal lesion on previous MRI- - deemed to be benign and was advised ff up MRI- lost to ff up EEG- no epileptiform features. continue on Keppra 500 mg po bid Hypertensive urgency-BP overall better Indeterminate troponins /elevated BNP- likely from Hypertensive urgency. NO need for further work up Echo good EF changed to LOpressor . DC Coreg Dyazide 37.5/25 mg po daily History of alcohol abuse- patient denies CILA protocol. Librium elevated-transaminases- near baseline from 2017- -likely alcohol related ff LFTs. check Ultrasound History of gastritis PPI Hyperproteinemia on labs abnormal SPEP Hematology consult Chronic back pain DC [place]. change to Hydrocodone 10 mg po q6 prn for pain PT daily. Out of bed to chair CM consult for DC planning- and set up with a PCP states she is in process of applying for disability Taty Cavanaugh MD Dec 12, 2017 07:44
[2017-12-12] MEDS: PANTOPRAZOLE SOD 40 MG DELAYED RELEASE TAB PO SCH (08:35)
[2017-12-12] MEDS: TRIAMTERENE/HCTZ 37.5 MG/25 MG CAP PO SCH (08:35)
[2017-12-12] MEDS: METOPROLOL TARTRATE 50 MG TAB PO SCH ×2 (08:35→20:42)
[2017-12-12] MEDS: levETIRAcetam 500 MG TAB PO SCH ×2 (08:35→20:42)
--- NOTE | 2017-12-12 09:34 | RADRPT ---
EXAM DATE/TIME: 12/12/2017 08:09 [place] COMPARISON: CT ABDOMEN & PELVIS W/O CONTRAST, January 31, 2017, 16:03. INDICATIONS : Abnormal labs. MEDICAL HISTORY : Seizures. Hypertenison. Dyspnea. GERD. Substance abuse. SURGICAL HISTORY : Appendectomy. Right finger surgery. ENCOUNTER: Initial ACUITY: 1 day PAIN SCORE: 10/10 LOCATION: Bilateral upper quadrant MEASUREMENTS: LIVER: 17.6 cm length COMMON DUCT: 4 mm RIGHT KIDNEY: 11.9 x 5.6 x 4.7 cm LEFT KIDNEY: 13.3 x 6.1 x 5.0 cm SPLEEN: 10.1 cm length AORTA: 2.2cm maximal FINDINGS: LIVER: Normal echotexture without focal lesion or ductal dilatation. COMMON DUCT: No intraluminal mass or stone visualized. GALLBLADDER: Contains no stones, demonstrates no wall thickening or pericholecystic fluid. PANCREAS: The visualized portions are within normal limits. RIGHT KIDNEY: There is a 1 cm echogenic mass in the lower pole posterior cortex of the right kidney. This may be a fatty or calcified neoplasm. LEFT KIDNEY: No hydronephrosis, stone or mass. SPLEEN: No focal lesion. AORTA: Non aneurysmal. IVC: Within normal limits. CONCLUSION: Small solid mass in the lower pole of the right kidney. Further evaluation with pre-and post contrast CT abdomen suggested Ezekiel Ashley MD on December 12, 2017 at 9:29 Board Certified Radiologist. This report was verified electronically.
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
[2017-12-13] VITALS: BP 103/69; PULSE 75; RESP 18; TEMP 98.1; O2SAT 98
[2017-12-13 04:00] VITALS: BP 121/79; PULSE 83; RESP 16; TEMP 97.9; O2SAT 98
[2017-12-13 04:23] VITALS: PULSE 89
[2017-12-13] MEDS: chlordiazePOXIDE 25 MG CAP PO SCH (05:20)
[2017-12-13 08:00] VITALS: BP 106/67; PULSE 107; PULSE 93; RESP 20; TEMP 97.4; O2SAT 98
[2017-12-13 08:30] LABS: HEMATOCRIT 46.9 % (35.0-46.0); HEMOGLOBIN 16.5 GM/DL (11.6-15.3); MEAN CELL VOLUME 96.7 FL (80.0-100.0); MEAN CORPUSCULAR HEMOGLOBIN 34.1 PG (27.0-34.0); MEAN CORPUSCULAR HGB CONC 35.3 % (32.0-36.0); PLATELET COUNT 336 TH/MM3 (150-450); RED BLOOD COUNT 4.85 MIL/MM3 (4.00-5.30); RED CELL DISTRIBUTION WIDTH 13.4 % (11.6-17.2); WHITE BLOOD COUNT 8.1 TH/MM3 (4.0-11.0)
[2017-12-13 08:48] LABS: KAPPA LAMBDA RATIO 1.98 (1.57-3.93)
[2017-12-13] MEDS: SODIUM CHLORIDE 0.9% FLUSH 10 ML FLUSH IV FLUSH SCH (08:56)
[2017-12-13] MEDS: TRIAMTERENE/HCTZ 37.5 MG/25 MG CAP PO SCH (08:56)
[2017-12-13] MEDS: levETIRAcetam 500 MG TAB PO SCH (08:56)
[2017-12-13] MEDS: PANTOPRAZOLE SOD 40 MG DELAYED RELEASE TAB PO SCH (08:56)
[2017-12-13] MEDS ORDERED: chlordiazePOXIDE 25 MG CAP PO SCH (09:00)
[2017-12-13] MEDS ORDERED: METOPROLOL TARTRATE 25 MG TAB PO SCH (09:00)
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
[2017-12-13] MEDS ORDERED: LEVE500 PO (09:12)
[2017-12-13] MEDS ORDERED: METO25TA3 PO (09:12)
[2017-12-13] MEDS ORDERED: CHLO25CA9 PO (09:12)
[2017-12-13] MEDS ORDERED: Triamterene-Hctz 37.5-25 Mg PO (09:12)
[2017-12-13] MEDS ORDERED: PANT40TA3 PO (09:13)
[2017-12-13] MEDS ORDERED: OXYC1CAP PO (09:14)
--- NOTE | 2017-12-13 09:24 | HHI.DS ---
Discharge Summary Admission Date Dec 10, 2017 at 04:57 Discharge Date: Dec 13, 2017 Admitting Diagnosis Hypertensive Urgency, Cardiac Strain (1) Hypertensive urgency ICD Code: I16.0 - Hypertensive urgency Diagnosis: Principal Status: Acute (2) Alcoholic gastritis ICD Code: K29.20 - Alcoholic gastritis without bleeding Diagnosis: Principal Status: Acute (3) Seizure ICD Code: R56.9 - Unspecified convulsions Diagnosis: Principal Status: Acute Procedures none Brief History - From Admission Patient is a 52 years old female, post menopausal with history of alcohol abuse in the past, history of seizure disorder , hypertension, states history of chronic headaches states she ran out of all her medications- few months ago. States her last seizure episode was in January 2017. Last evening- complains of severe headache described as like "eyeballs are going to pop out, seeing stars- like kaleidoscope " that scared her and prompted her to call EMS and was brought in here for evaluation. On intitial evaluation- with a BP of 220/130 associated with shortness of breath and nausea . she was promptly given Labetalol 10 mg IV x 2, clonidine 0.1 mg and IV Hydralazine, IV zofran. and finally= IV Ativan x 1- that helped - per ER nurse She denies any orthopnea, PND, occasional leg swelling..She states history of chronic back pain but Ambulates independently with no assistive device. she did mention that she was on dilaudid in the past for back pain She does not recall any of her medications except being on dilaudid Went over med list with her- "don't recall CBC/BMP: 12/13/17 0800 12/12/17 0547 Significant Findings Laboratory Tests Test 12/10/17 09:49 12/10/17 12:00 12/12/17 05:47 12/13/17 08:00 Random Glucose 114 MG/DL (74-106) Total Protein 8.6 GM/DL (6.4-8.2) 9.3 GM/DL (6.4-8.2) Aspartate Amino Transf (AST/SGOT) 58 U/L (15-37) Alanine Aminotransferase (ALT/SGPT) 70 U/L (10-53) Sodium Level 134 MEQ/L (136-145) 132 MEQ/L (136-145) Estimat Glomerular Filtration Rate 83 ML/MIN (>89) 72 ML/MIN (>89) Troponin I 0.13 NG/ML (0.02-0.05) Albumin/Globulin Ratio 0.96 (1.39-2.23) Ltcjn-3-Ajggnynru 1.02 GM/DL (0.22-1.00) Gamma Globulins 2.30 GM/DL (0.50-1.39) Activated Partial Thromboplast Time 43.7 SEC (24.3-30.1) Hemoglobin 16.5 GM/DL (11.6-15.3) Hematocrit 46.9 % (35.0-46.0) Mean Corpuscular Hemoglobin 34.1 PG (27.0-34.0) Immunoglobulin G Total 2230 MG/DL (660-1620) Immunoglobulin A 466 MG/DL (81-446) Blanche Light Chain Analysis 671 MG/DL (170-370) Lambda Light Chain Analysis 339 MG/DL (90-210) Test 12/13/17 08:10 12/13/17 08:11 Imaging Last Impressions Abdomen Ultrasound 12/12/17 0000 Signed Impressions: Service Date/Time: Tuesday, December 12, 2017 08:09 - CONCLUSION: Small solid mass in the lower pole of the right kidney. Further evaluation with pre-and post contrast CT abdomen suggested Ezekiel Ashley MD Brain MRI 12/10/17 0000 Signed Impressions: Service Date/Time: Sunday, December 10, 2017 12:30 - CONCLUSION: Patchy areas of abnormal parenchymal brain signal intensity similar in appearance, however more extensive than on prior MRIs. Ezekiel Ashley MD Chest X-Ray 12/09/17 2250 Signed Impressions: Service Date/Time: Saturday, December 09, 2017 23:16 - CONCLUSION: No acute disease. There is no evidence of pneumonia. Darrell Phillips MD Head CT 12/09/17 0000 Signed Impressions: Service Date/Time: Saturday, December 09, 2017 23:11 - CONCLUSION: Stable negative noncontrast CT. Darrell Phillips MD PE at Discharge awake and alert, no acute distress anicteric lungs- no rales regular rhythm abdomen soft, nontender extremities no edema moves all extremities spontaneously CN grossly intact gait steady Pt update on day of discharge awake and alert, speech clear neuro intact d/w her results of blood works- meds and pain meds needs oP ff up with a PCP ambulating well Hospital Course 52 years odl female presenting with HYpertensive urgency- with possible SZ. History of Seizure disorder- non compliant with meds History of parietal lesion on previous MRI- - deemed to be benign and was advised ff up MRI- lost to ff up EEG- no epileptiform features. continue on Keppra 500 mg po bid Hypertensive urgency-BP overall better Indeterminate troponins /elevated BNP- likely from Hypertensive urgency. NO need for further work up Echo good EF change to LOpressor 25 mg po bid Dyazide 37.5/25 mg po daily History of alcohol abuse- patient now states she drinks "couple of beers" per day discuss with her that her LFTs now normalized elevated-transaminases- near baseline from 2017- -likely alcohol related ff LFTs. check Ultrasound- chronic disease History of gastritis PPI Hyperproteinemia on labs abnormal SPEP Hematology consulted- appreciated- OP ff up Chronic back pain DC [place]. change to Hydrocodone 10 mg po q6 prn for pain PT daily. Out of bed to chair CM consult for DC planning- and set up with a PCP states she is in process of applying for disability no driving. avoid heights, no heavy machineries Pt Condition on Discharge: Stable Discharge Disposition: Discharge Home Discharge Time: <= 30 minutes Discharge Instructions DIET: Follow Instructions for: Heart Healthy Diet Speech Therapy-Diet Recommends: Regular Activities you can perform: Weight Bearing as [place] Activities to Avoid: Strenuous Activity, Driving Other Activity Instructions: no driving for 6 months avoid heavy machineeries Follow up Referrals: Oncology/Hematology - 1 Week with Fabien Knott MD PCP Follow-up - 3-5 Days with Guzman New Medications: Oxycodone (Oxycodone) 5 Mg Cap 5 MG PO Q8H PRN for PAIN, #30 CAP 0 Refills Chlordiazepoxide HCl (Chlordiazepoxide HCl) 25 Mg Capsule 25 MG PO BID for ETO for 3 Days, #6 TAB 0 Refills Metoprolol Tartrate (Metoprolol Tartrate) 25 Mg Tab 25 MG PO Q12HR for HTN for 30 Days, TAB Pantoprazole (Pantoprazole) 40 Mg Tab 40 MG PO DAILY for gastrtis for 30 Days, #30 TAB [Triamterene-Hctz 37.5-25 Mg] () 1 CAP CAP 1 CAP PO DAILY for HTN Continued Medications: Aspirin DR (Aspirin EC) 81 Mg Tabdr 81 MG PO DAILY for Blood Clot Prevention, #30 TAB Levetiracetam (Keppra) 500 Mg Tab 500 MG PO Q12HR for Seizure Control for 30 Days, #60 TAB (This prescription has been renewed) Discontinued Medications: Ibuprofen (Motrin Ib) 200 Mg Tab 800 MG PO Q8HR PRN for PAIN SCALE 1 TO 5, #20 TAB Taty Cavanaugh MD Dec 13, 2017 09:24
[2017-12-15 10:00] LABS: HEPATITIS B CORE AB IGM NEGATIVE (NEGATIVE); HEPATITIS B SURFACE ANTIGEN NEGATIVE (NEGATIVE); HEPATITIS C AB IgG REACTIVE (NEGATIVE)
[2017-12-17 03:51] LABS: KAPPA/LAMBDA FREE 1.76 (0.26-1.65)
== END 2017-12-13 13:40 | disposition home or self-care (01) | DRG 305 ==
LOC: NEPE 22:36 → NEDA 12-10 04:57 → N04B 12-10 15:01
PROVIDERS: ADMIT Internal Medicine; ATTEND Internal Medicine
DX: I16.0 Hypertensive urgency (principal); E88.09 Other disorders of plasma-protein metabolism, not elsewhere classified; F17.210 Nicotine dependence, cigarettes, uncomplicated; G44.89 Other headache syndrome; K21.9 Gastro-esophageal reflux disease without esophagitis; G89.29 Other chronic pain; M54.9 Dorsalgia, unspecified; G40.909 Epilepsy, unspecified, not intractable, without status epilepticus; Z91.14 Patient's other noncompliance with medication regimen; M25.559 Pain in unspecified hip; K29.20 Alcoholic gastritis without bleeding
CPT/HCPCS: 70450; 70553; 71045; 76700; 80053; 80307; 81001; 82550; 82784; 83735; 83880; 83883; 84165; 84484; 85025; 85027; 85610; 85730; 86334; 86703; 86705; 86803; 87340; 93005; 93306; 95819; 96374; 96375; 96376; A9579; J0360; J1644; J1885; J1953; J2060; J2405; J2765

== ENCOUNTER 2018-01-14 20:08 | Observation (INO) | payer SELFPAY ==
[~2018-01-14] VITALS: Ht 177.8 cm; Wt 85.0 kg
[~2018-01-14 20:08] MED LIST changes: +CHLO25CA9 PO; +METO25TA3 PO; -MOTR200T4 PO; +OXYC1CAP PO; +PANT40TA3 PO; +Triamterene-Hctz 37.5-25 Mg PO
[2018-01-14 20:45] VITALS: BP 206/112; PULSE 72; RESP 16; TEMP 97.5; O2SAT 100
[2018-01-14] MEDS ORDERED: SODIUM CHLORIDE 0.9% FLUSH 10 ML FLUSH IV FLUSH PRN (21:30)
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
[2018-01-14 22:22] LABS: AUTOMATED NEUTROPHIL # 6.5 TH/MM3 (1.8-7.7); BASOPHIL # 0.1 TH/MM3 (0-0.2); BASOPHIL % 0.9 % (0.0-2.0); HEMATOCRIT 45.7 % (35.0-46.0); HEMOGLOBIN 15.9 GM/DL (11.6-15.3); LYMPH % 16.7 % (9.0-44.0); LYMPHOCYTE # 1.4 TH/MM3 (1.0-4.8); MEAN CORPUSCULAR HEMOGLOBIN 33.1 PG (27.0-34.0); MEAN CORPUSCULAR HGB CONC 34.8 % (32.0-36.0); MEAN PLATELET VOLUME 8.2 FL (7.0-11.0); MONO % 5.3 % (0.0-8.0); MONOCYTE # 0.4 TH/MM3 (0-0.9); NEUT % 77.1 % (16.0-70.0); PLATELET COUNT 300 TH/MM3 (150-450); RED BLOOD COUNT 4.81 MIL/MM3 (4.00-5.30); RED CELL DISTRIBUTION WIDTH 13.7 % (11.6-17.2); WHITE BLOOD COUNT 8.5 TH/MM3 (4.0-11.0)
[2018-01-14 22:34] LABS: INTERNATIONAL NORMALIZED RATIO 1.1 RATIO; PROTHROMBIN TIME - PATIENT 11.1 SEC (9.8-11.6)
[2018-01-14 22:36] LABS: ALBUMIN 3.7 GM/DL (3.4-5.0); ALT (GPT) 71 U/L (10-53); AST (GOT) 90 U/L (15-37); BICARBONATE 24.8 MEQ/L (21.0-32.0); BLOOD UREA NITROGEN 9 MG/DL (7-18); CALCIUM 9.5 MG/DL (8.5-10.1); CHLORIDE 102 MEQ/L (98-107); CREATININE 0.72 MG/DL (0.50-1.00); GLOMERULAR FILTRATION RATE 86 ML/MIN (>89); GLUCOSE,RANDOM 115 MG/DL (74-106); SODIUM (NA) 136 MEQ/L (136-145)
[2018-01-14 22:38] LABS: ALKALINE PHOSPHATASE 116 U/L (45-117); TOTAL BILIRUBIN ADULT 0.8 MG/DL (0.2-1.0); TOTAL PROTEIN 9.7 GM/DL (6.4-8.2)
--- NOTE | 2018-01-14 22:42 | PD ---
Physical Exam Date Seen by Provider: Jan 14, 2018 Time Seen by Provider: 22:35 Narrative GENERAL: Well-developed disheveled female in obvious discomfort no respiratory distress; GCS 15 SKIN: Warm and dry. HEAD: Atraumatic. Normocephalic. EYES: Pupils equal and round. No scleral icterus. No injection or drainage. ENT: No nasal bleeding or discharge. Mucous membranes pink and moist. NECK: Trachea midline. No JVD. CARDIOVASCULAR: Regular rate and rhythm. RESPIRATORY: No accessory muscle use. Clear to auscultation. Breath sounds equal bilaterally. GASTROINTESTINAL: Abdomen soft, non-tender, nondistended. Hepatic and splenic margins not palpable. MUSCULOSKELETAL: Extremities without clubbing, cyanosis, or edema. No obvious deformities. NEUROLOGICAL: Awake and alert. No obvious cranial nerve deficits. Motor grossly within normal limits. Five out of 5 muscle strength in the arms and legs. Normal speech. PSYCHIATRIC: Appropriate mood and affect; insight and judgment normal. Data Data Last Documented VS Vital Signs Date Time Temp Pulse Resp B/P (MAP) Pulse Ox O2 Delivery O2 Flow Rate FiO2 01/14/18 20:45 97.5 72 16 206/112 (143) 100 Orders Orders Complete Blood Count With Diff (01/14/18 21:20) Comprehensive Metabolic Panel (01/14/18 21:20) Lipase (01/14/18 21:20) Prothrombin Time / Inr (Pt) (01/14/18 21:20) Act Partial Throm Time (Ptt) (01/14/18 21:20) Urinalysis - C+S If Indicated (01/14/18 21:20) Sodium Chloride 0.9% Flush (Ns Flush) (01/14/18 21:30) Ed Urine Pregnancytest Poc (01/14/18 21:20) Ct Brain W/O Iv Contrast(Rout) (01/14/18 ) Labs Laboratory Tests Test 01/14/18 21:45 White Blood Count 8.5 TH/MM3 Red Blood Count 4.81 MIL/MM3 Hemoglobin 15.9 GM/DL Hematocrit 45.7 % Mean Corpuscular Volume 95.0 FL Mean Corpuscular Hemoglobin 33.1 PG Mean Corpuscular Hemoglobin Concent 34.8 % Red Cell Distribution Width 13.7 % Platelet Count 300 TH/MM3 Mean Platelet Volume 8.2 FL Neutrophils (%) (Auto) 77.1 % Lymphocytes (%) (Auto) 16.7 % Monocytes (%) (Auto) 5.3 % Eosinophils (%) (Auto) 0.0 % Basophils (%) (Auto) 0.9 % Neutrophils # (Auto) 6.5 TH/MM3 Lymphocytes # (Auto) 1.4 TH/MM3 Monocytes # (Auto) 0.4 TH/MM3 Eosinophils # (Auto) 0.0 TH/MM3 Basophils # (Auto) 0.1 TH/MM3 CBC Comment DIFF FINAL Differential Comment Prothrombin Time 11.1 SEC Prothromb Time International Ratio 1.1 RATIO Activated Partial Thromboplast Time 27.1 SEC [facility] Medical Record Reviewed: Yes Supervised Visit with SYBIL: Yes Differential Diagnosis Alcohol gastritis peptic ulcer disease pancreatitis biliary colic ACS aortic dissection hypertensive urgency hypertensive crisis ICH alcohol withdrawal medical noncompliance Narrative Course 52-year-old female presents to the emergency department by EMS transport for 1 day of myalgias arthralgias 10/10 headache abdominal pain with known medical noncompliance for history of hypertension alcohol abuse alcohol withdrawal seizure disorder and alcohol gastritis. Patient with multiple episodes of vomiting denies hematemesis or coffee-ground emesis. Patient has noted loose stools but denies melena or hematochezia. Patient denies fever does complain of chills. No respiratory illness no cough no sore throat no earache no neck pain no shortness of breath no productive cough no hemoptysis. Liyah Monroy MD Jan 14, 2018 22:42
[2018-01-14 22:45] VITALS: BP 201/118; PULSE 75; RESP 27; TEMP 98; O2SAT 100
[2018-01-14] MEDS ORDERED: ONDANSETRON HCL 4 MG/2 ML VIAL IV PUSH ONE (23:00)
[2018-01-14] MEDS ORDERED: PANTOPRAZOLE SODIUM 40 MG VIAL IV PUSH ONE (23:00)
[2018-01-14] MEDS ORDERED: LABETALOL HCL 100 MG/20 ML VIAL IV PUSH ONE (23:00)
[2018-01-14] MEDS: SODIUM CHLOR 0.9% 1000 ML INJ 1,000 ML IV SCH (23:12)
--- NOTE | 2018-01-14 23:38 | RADRPT ---
EXAM DATE/TIME: 01/14/2018 23:25 [facility] COMPARISON: CT BRAIN W/O CONTRAST, December 09, 2017, 23:11. INDICATIONS : Cephalgia. RADIATION DOSE: 66.34 CTDIvol (mGy) ; Tabletop CT Head MEDICAL HISTORY : Hypertension. Gastroesophageal reflux disease. SURGICAL HISTORY : None. ENCOUNTER: Initial ACUITY: 1 day PAIN SCALE: 10/10 LOCATION: cranial TECHNIQUE: Multiple contiguous axial images were obtained of the head. Using automated exposure control and adj ustment of the mA and/or kV according to patient size, radiation dose was kept as low as reasonably a chievable to obtain optimal diagnostic quality images. DICOM format image data is available electro nically for review and comparison. FINDINGS: CEREBRUM: The ventricles are normal for age. No evidence of midline shift, mass lesion, hemorrhage or acute in farction. No extra-axial fluid collections are seen. POSTERIOR FOSSA: The cerebellum and brainstem are intact. The 4th ventricle is midline. The cerebellopontine angle i s unremarkable. EXTRACRANIAL: The visualized portion of the orbits is intact. SKULL: The calvaria is intact. No evidence of skull fracture. CONCLUSION: No acute intracranial disease. Adarsh Rogers MD on January 14, 2018 at 23:36 Board Certified Radiologist. This report was verified electronically.
[2018-01-14] MEDS ORDERED: IOHEXOL 350 MG/ML 10 ML VIAL (for RAD DIAG) IVCONTRAST ONE (23:39)
[2018-01-14 23:43] LABS: MAGNESIUM 1.8 MG/DL (1.5-2.5)
--- NOTE | 2018-01-14 23:49 | RADRPT ---
EXAM DATE/TIME: 01/14/2018 23:28 [facility] COMPARISON: CT ABDOMEN & PELVIS W/O CONTRAST, January 31, 2017, 16:03. INDICATIONS : Abdominal pain and nausea. IV CONTRAST: 100 cc Omnipaque 350 (iohexol) IV ORAL CONTRAST: No oral contrast ingested. RADIATION DOSE: 7.23 CTDIvol (mGy) MEDICAL HISTORY : Hypertension. Gastroesophageal reflux disease. SURGICAL HISTORY : Appendectomy. ENCOUNTER: Initial ACUITY: 1 day PAIN SCALE: 6/10 LOCATION: Abdomen. TECHNIQUE: Volumetric scanning of the abdomen and pelvis was performed. Using automated exposure control and ad justment of the mA and/or kV according to patient size, radiation dose was kept as low as reasonably achievable to obtain optimal diagnostic quality images. DICOM format image data is available electro nically for review and comparison. FINDINGS: LOWER LUNGS: Small irregular density right lower lobe. Left lung base clear. LIVER: Homogeneous density without lesion. There is no dilation of the biliary tree. No calcified gallston es. SPLEEN: Normal size without lesion. PANCREAS: Within normal limits. KIDNEYS: Normal in size and shape. There is no mass, stone or hydronephrosis. ADRENAL GLANDS: Within normal limits. VASCULAR: There is no aortic aneurysm. BOWEL/MESENTERY: The stomach, small bowel, and colon demonstrate no acute abnormality. There is no free intraperitone al air or fluid. ABDOMINAL WALL: Within normal limits. RETROPERITONEUM: There is no lymphadenopathy. BLADDER: No wall thickening or mass. REPRODUCTIVE: Within normal limits. INGUINAL: There is no lymphadenopathy or hernia. MUSCULOSKELETAL: Mild scattered degenerative changes. CONCLUSION: 1. No acute inflammatory process. 2. Minimal irregular density right lower lobe. Followup CT chest in 6 months recommended for stabilit y. Adarsh Rogers MD on January 14, 2018 at 23:41 Board Certified Radiologist. This report was verified electronically.
[2018-01-15] VITALS (13 sets, daily range): BP systolic 104–194; BP diastolic 62–118; PULSE 72–91; RESP 16–19; TEMP 98.8–99.9; O2SAT 97–99
[2018-01-15] MEDS ORDERED: hydrALAZINE HCL 20 MG/ML VIAL IV PUSH ONE ×2 (03:00→04:45)
[2018-01-15] MEDS ORDERED: SUCRALFATE 1 GM/10 ML CUP PO ONE (03:30)
[2018-01-15] MEDS ORDERED: cloNIDine HCL 0.1 MG TAB PO ONE (04:00)
[2018-01-15] MEDS ORDERED: LORazepam 2 MG TAB PO PRN (05:00)
[2018-01-15] MEDS ORDERED: LORazepam 2 MG/ML VIAL IV PUSH PRN ×4 (05:00)
[2018-01-15] MEDS ORDERED: FLUMAZENIL 0.5 MG/5 ML VIAL IV PUSH PRN (05:00)
[2018-01-15] MEDS ORDERED: ONDANSETRON HCL 4 MG/2 ML VIAL IVP PRN (05:15)
[2018-01-15] MEDS ORDERED: NALOXONE HCL 0.4 MG/ML AMP IV PUSH PRN (05:15)
[2018-01-15] MEDS ORDERED: SODIUM CHLORIDE 0.9% FLUSH 10 ML FLUSH IV FLUSH PRN (05:15)
[2018-01-15 08:15] LABS: BILIRUBIN, URINE NEG (NEG); BLOOD, URINE NEG (NEG); GLUCOSE,URINE NEG (NEG); KETONE, URINE NEG (NEG); NITRITE,URINE NEG (NEG); PH, URINE 7.5 (5.0-8.5); URINE COLOR LIGHT-YELLOW (YELLW/STRAW); URINE LEUKOCYTE ESTERASE NEG (NEG)
[2018-01-15] MEDS: SODIUM CHLOR 0.9% 1000 ML INJ 1,000 ML IV SCH ×2 (08:28→21:29)
[2018-01-15] MEDS: SODIUM CHLORIDE 0.9% FLUSH 10 ML FLUSH IV FLUSH SCH ×2 (08:28→21:26)
--- NOTE | 2018-01-15 12:00 | HHI.HP ---
HPI Service [facility] Primary Care Physician No Primary Care Physician Admission Diagnosis uncontrolled HTN; alcohol gastritis Diagnoses: Travel History International Travel<30 Days: No Contact w/Intl Traveler <30 Da: No Traveled to Known Affected Are: No History of Present Illness Patient is a 52-year-old female with past medical history of hypertension ( noncompliant with BP meds) chronic headaches occurring once a month, seizure disorder presented to the emergency room last night because she has been having severe nausea and vomiting and having multiple episodes of nonbloody emesis. Patient states this occurs to her once a month. She has a history of seizures for which she takes medication. Patient admits to me that she stopped taking her BP meds because they make her "pass out". Patient states her headache currently is a 10 out of 10. She states she has this questionable mass in the back of her lobe of her brain. She denies seeing a neurologist for her headaches. She states she stopped taking the BP meds in November. Currently her nausea and vomiting has resolved however she does have the headache with photophobia. She does not recall having a seizure episode last night. She lives alone. She states she comes often to the emergency room for this problem she lives in [facility] and usually goes to the hospital close by. She denies ever being diagnosed with migraines. Review of Systems Except as stated in HPI: all other systems reviewed are Neg Past Family Social History Past Medical History Hypertension, noncompliance, seizure disorder, chronic headache, 3 herniated disc "pinched nerves". Past Surgical History Appendectomy Reported Medications Reported Meds & Active Scripts Active Pantoprazole (Pantoprazole Sodium) 40 Mg Tab 40 Mg PO DAILY 30 Days [Triamterene-Hctz 37.5-25 Mg] 1 CAP Cap 1 Cap PO DAILY Chlordiazepoxide HCl 25 Mg Capsule 25 Mg PO BID 3 Days Metoprolol Tartrate 25 Mg Tab 25 Mg PO Q12HR 30 Days Keppra (Levetiracetam) 500 Mg Tab 500 Mg PO Q12HR 30 Days Aspirin EC (Aspirin) 81 Mg Tabdr 81 Mg PO DAILY Allergies: Coded Allergies: No Known Allergies (Verified Allergy, Unknown, 01/14/18) Family History She cannot give me a family history because she does not know her parents Social History Admits to smoking a pack a day for at least 10 years. Denies any illegal drug use . She admits to only drinking 1-2 beers a month. Physical Exam Vital Signs Vital Signs Date Time Temp Pulse Resp B/P (MAP) Pulse Ox O2 Delivery O2 Flow Rate FiO2 01/15/18 11:00 91 18 160/104 (122) 98 01/15/18 10:00 82 18 162/100 (120) 98 01/15/18 08:40 82 163/102 (122) 01/15/18 08:00 72 18 194/110 (138) 98 Room Air 01/15/18 07:23 91 18 181/118 (139) 98 Room Air 01/15/18 03:48 84 19 169/110 (129) 98 Room Air 01/15/18 03:00 87 18 193/113 (139) 99 Room Air 01/15/18 01:30 91 18 180/113 (135) 99 Room Air 01/14/18 22:45 98.0 75 27 201/118 (145) 100 Room Air 01/14/18 20:45 97.5 72 16 206/112 (143) 100 Physical Exam GENERAL: Disheveled patient, turns on her left side and p poles cover up HEAD: Atraumatic. Normocephalic. EYES: Pupils equal round and reactive. Extraocular motions intact. No scleral icterus. No injection or drainage. ENT: Nose without drainage. Throat without erythema, tonsillar hypertrophy or exudate. Uvula midline. Airway patent. NECK: Trachea midline. No meningeal signs. CARDIOVASCULAR: Regular rate and rhythm without murmurs. RESPIRATORY: Clear to auscultation. Breath sounds equal bilaterally. No wheezes. GASTROINTESTINAL: Abdomen soft, non-tender, nondistended. No guarding. MUSCULOSKELETAL: Extremities without edema. Moves extremities well. NEUROLOGICAL: Awake and alert. Normal speech. Laboratory Laboratory Tests Test 01/14/18 21:45 01/15/18 07:15 White Blood Count 8.5 Red Blood Count 4.81 Hemoglobin 15.9 Hematocrit 45.7 Mean Corpuscular Volume 95.0 Mean Corpuscular Hemoglobin 33.1 Mean Corpuscular Hemoglobin Concent 34.8 Red Cell Distribution Width 13.7 Platelet Count 300 Mean Platelet Volume 8.2 Neutrophils (%) (Auto) 77.1 Lymphocytes (%) (Auto) 16.7 Monocytes (%) (Auto) 5.3 Eosinophils (%) (Auto) 0.0 Basophils (%) (Auto) 0.9 Neutrophils # (Auto) 6.5 Lymphocytes # (Auto) 1.4 Monocytes # (Auto) 0.4 Eosinophils # (Auto) 0.0 Basophils # (Auto) 0.1 CBC Comment DIFF FINAL Differential Comment Prothrombin Time 11.1 Prothromb Time International Ratio 1.1 Activated Partial Thromboplast Time 27.1 Blood Urea Nitrogen 9 Creatinine 0.72 Random Glucose 115 Total Protein 9.7 Albumin 3.7 Calcium Level 9.5 Alkaline Phosphatase 116 Aspartate Amino Transf (AST/SGOT) 90 Alanine Aminotransferase (ALT/SGPT) 71 Total Bilirubin 0.8 Sodium Level 136 Potassium Level 4.0 Chloride Level 102 Carbon Dioxide Level 24.8 Anion Gap 9 Estimat Glomerular Filtration Rate 86 Magnesium Level 1.8 Lipase 152 Ethyl Alcohol Level LESS THAN 3 Urine Color LIGHT-YELLOW Urine Turbidity CLEAR Urine pH 7.5 Urine Specific [place] 1.013 Urine Protein NEG Urine Glucose (UA) NEG Urine Ketones NEG Urine Occult Blood NEG Urine Nitrite NEG Urine Bilirubin NEG Urine Urobilinogen LESS THAN 2.0 Urine Leukocyte Esterase NEG Urine RBC LESS THAN 1 Urine WBC LESS THAN 1 Microscopic Urinalysis Comment CULT NOT INDICATED Result Diagram: 01/14/18214401/14/182144 Caprini VTE Risk Assessment Caprini VTE Risk Assessment: No/Low Risk (score <= 1) Caprini Risk Assessment Model Point Value = 1 Point Value = 2 Point Value = 3 Point Value = 5 Age 41-60 Minor surgery BMI > 25 kg/m2 Swollen legs Varicose veins or History of unexplained or recurrent spontaneous Oral contraceptives or hormone replacement Sepsis (< 1 month) Serious lung disease, including pneumonia (< 1 month) Abnormal pulmonary function Acute myocardial infarction Congestive heart failure (< 1 month) History of inflammatory bowel disease Medical patient at bed rest Age 61-74 Arthroscopic surgery Major open surgery (> 45 min) Laparoscopic surgery (> 45 min) Malignancy Confined to bed (> 72 hours) Immobilizing plaster cast Central venous access Age >= 75 History of VTE Family history of VTE Factor V Leiden Prothrombin [id number] Lupus anticoagulant Anticardiolipin antibodies Elevated serum homocysteine Heparin-induced thrombocytopenia Other congenital or acquired thrombophilia Stroke (< 1 month) Elective arthroplasty Hip, pelvis, or leg fracture Acute spinal cord injury (< 1 month) Prophylaxis Regimen Total Risk Factor Score Risk Level Prophylaxis Regimen 0-1 Low Early ambulation 2 Moderate Order ONE of the following: *Sequential Compression Device (SCD) *Heparin 5000 units SQ BID 3-4 Higher Order ONE of the following medications: *Heparin 5000 units SQ TID *Enoxaparin/Lovenox 40 mg SQ daily (WT < 150 kg, CrCl > 30 mL/min) *Enoxaparin/Lovenox 30 mg SQ daily (WT < 150 kg, CrCl > 10-29 mL/min) *Enoxaparin/Lovenox 30 mg SQ BID (WT < 150 kg, CrCl > 30 mL/min) AND/OR *Sequential Compression Device (SCD) 5 or more Highest Order ONE of the following medications: *Heparin 5000 units SQ TID (Preferred with Epidurals) *Enoxaparin/Lovenox 40 mg SQ daily (WT < 150 kg, CrCl > 30 mL/min) *Enoxaparin/Lovenox 30 mg SQ daily (WT < 150 kg, CrCl > 10-29 mL/min) *Enoxaparin/Lovenox 30 mg SQ BID (WT < 150 kg, CrCl > 30 mL/min) AND *Sequential Compression Device (SCD) Assessment and Plan Assessment and Plan Headaches: Patient admits to having a "mass in the back of the lobe of her brain ". Pt did have an MRI in nov of this year which showed " Patchy areas of abnormal parenchymal brain signal intensity similar in appearance, however more extensive than on prior MRIs". I have consulted neurology for further assistance. Patient may have a history of migraine headaches and she does have photophobia associated with nausea vomiting with the headache. Denies any fevers or chills. Patient does have a history of seizure disorder. I will start her on fioricet prn and see if this helps. Appreciate input from neurology. CT head no acute intracranial disease. Seizure disorder: Resume Keppra Hypertensive urgency: vasotec and hydralazine prn. started on her amlodipine 10mg po daily n/v: resolved. zofran prn. CT scan abd/pelvix showed no acute inflammatory process. DVT proph: lovenox/early ambulation Code Status full. Discussed Condition With patient Perri Cruz MD Jan 15, 2018 12:00
[2018-01-15] MEDS ORDERED: TRIAMTERENE PO SCH (12:15)
[2018-01-15] MEDS ORDERED: ENALAPRILAT 1.25 MG/ML VIAL IV PUSH PRN (12:15)
[2018-01-15] MEDS ORDERED: HYDROCHLOROTHIAZIDE PO SCH (12:15)
[2018-01-15] MEDS: levETIRAcetam 500 MG TAB PO SCH ×2 (13:23→21:25)
[2018-01-15] MEDS: ACETAMIN 325 MG/BUTALBITAL 50 MG/CAFFEINE 40 MG TAB PO PRN (16:28)
--- NOTE | 2018-01-15 16:41 | MB ---
cc: Ananda Menjivar MD DATE: 01/15/2018 A 52-year-old right-handed woman with a history of hypertension, hypercholesterolemia, seizure in January 2017. She was on seizure meds for a bit but then stopped them herself. She was put on blood pressure medicines, but then her blood pressure went too low and then she stopped them. She does not take an aspirin a day. She has headaches only when her blood pressure goes very high. Otherwise, she is headache free, she tells me. She was never told why she had seizures. She lives in an . I am not quite sure if she lives in a trailer park or not. 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 She used to work in [place]. SOCIAL HISTORY: She is a smoker, occasionally has a drink, used to be a more heavy drinker but did have a drink last about a week or two ago. No drugs. FAMILY HISTORY: She is adopted. REVIEW OF SYSTEMS: Denies any diabetes, LA, stent, angioplasty, AFib, Coumadin, renal, hepatic or pulmonary disease, thyroid disease, lupus, ulcer, cancer or stroke. She was seen here by Dr. Gilliam in 01/[address] Turcios on 12/10/2017. She was having kaleidoscope vision and a headache at that time with a history of hypertension, history of alcohol abuse. She had a blood pressure at that time of 220/130. Her exam was normal. CT was negative. She was suggested to put on Topamax. She was put on a heparin drip but not by neurology. She had a gammaglobulin spike. She had a hypoproteinemia. MEDICATIONS: Here, she was listed down as oxycodone, Protonix, Librium, metoprolol, Keppra, aspirin, triamterene/hydrochlorothiazide. She came in last evening with severe nausea, vomiting, multiple episodes of throwing up, blood pressure extremely high. On exam, initially her blood pressure was 206/112, has come down to 149/91. She still has a bit of a headache. There were no carotid bruits. HEART: Regular rhythm, did not detect a murmur. Pupils are equal. Visual yi are full. Extraocular movements intact without nystagmus. Disc on the right was sharp. Temples are nontender bilaterally. Face is symmetric with normal sensation. Tongue was midline. There is no drift. She had normal strength in upper and lower extremities bilaterally. DTRs 2+ symmetric throughout. Toes downgoing bilaterally. Pinprick was intact throughout. There is no ankle clonus. [id number]. Speech is fluent. She is not aphasic. LABORATORIES: CBC is normal. Sed rate was normal in 2017. RPR has been negative. Hepatitis C was reactive on the antibody. HIV has been negative. She had some kappa light chains noted being positive. UA is negative. Urine drug screen not done on this time. Last month, she was positive for opiates and benzos. Basic metabolic profile essentially normal. LFTs are elevated, 90 for the AST, 71 for the ALT. Troponin was elevated last time, not on this time. Total protein is 9.7, albumin 3.7. No abnormal bands were noted. Had a hypergammaglobulinemia. B12 was low at 147 a year ago. TSH was low at that time, 0.14. T4 was normal, however. Coags are normal. CAT scan of the brain on this admission is negative. MRI of the brain last month showed patchy white matter changes, worse compared to prior. She was in the hospital last month, and the EEG was done at that time, showed some slowing, maybe a little bit worse on the left. She did see neurology at that time. Reviewed MRI of the brain. There were some slight flare abnormalities, could be consistent with a PRES-type syndrome prior, especially around the interhemispheric fissure, left occipital head region. No enhancement was noted. IMPRESSION: 1. 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 1. Hypertensive encephalopathy, hypertensive headaches. She evidently only has headaches when her blood pressure is very high, she tells me. I think at this time, she looks well neurologically. We will recheck an MR venogram and MRA [id number]. Check some additional blood work on her. Get her blood pressure down to 120/70. I note she may have had a seizure from PRES syndrome in January of last year, and she does remember being told that she had an abnormality in the back of her brain. In fact, she does on the left occipital region, which is probably due to the hypertension. What happened one time is she was put on hypertensive meds and then her blood pressure came down on its own, and then she went too low and then took herself off the meds because she was down to about in the 60s systolic, she tells me, so will have to be careful. She also does not have a lot of money, but could be put on a blood pressure medication that is on the [employer] $2 and 50 cents a month list by the med team to help with her compliance outpatient. I note an echocardiogram last month was normal. Also, check a carotid ultrasound on her. MD SHAAN Saldana/ALMA , 04:01 PM , 04:41 PM
[2018-01-15] MEDS ORDERED: GADODIAMIDE PF 287 MG/ML 20 ML VIAL (for RAD MRI) IVCONTRAST ONE (18:36)
--- NOTE | 2018-01-15 18:49 | RADRPT ---
EXAM DATE/TIME: 01/15/2018 17:49 [facility] COMPARISON: No previous studies available for comparison. INDICATIONS : CVA. Headache. MEDICAL HISTORY : Hypertension. Gastroesophageal reflux disease. Seizures. SURGICAL HISTORY : Appendectomy. ENCOUNTER: Initial ACUITY: 1 day PAIN SCORE: 4/10 LOCATION: Head. Please note a normal MRA of the brain does not entirely exclude the possibility of a small aneurysm, nor the possibility of distal intracranial vessel disease. TECHNIQUE: 3D time of flight MRA was performed. Source images, multiplanar STS MIP, and 3D volume MIP reconstru ctions were reviewed. FINDINGS: There is excellent visualization of the major intracranial arteries out to the second-order branch ve ssels. There is no evidence for aneurysm, vessel truncation or stenosis, and no evidence for vascula r malformation. Much of the flow within the right posterior cerebral artery arises from the internal carotid artery which is a normal variant. The left posterior cerebral artery is a continuation of the basilar artery. CONCLUSION: No acute disease. Ezekiel Davies MD on January 15, 2018 at 18:46 Board Certified Radiologist. This report was verified electronically.
--- NOTE | 2018-01-15 19:12 | RADRPT ---
EXAM DATE/TIME: 01/15/2018 17:49 [facility] COMPARISON: MRI BRAIN W & W/O CONTRAST, December 10, 2017, 12:30. INDICATIONS : CVA. Headache. CONTRAST: 20 cc Omniscan (gadodiamide) IV MEDICAL HISTORY : Hypertension. Gastroesophageal reflux disease. Seizures. SURGICAL HISTORY : Appendectomy. ENCOUNTER: Initial ACUITY: 1 day PAIN SCORE: 4/10 LOCATION: Head. TECHNIQUE: Multiplanar, multisequence MRI of the brain was performed both prior to and following the administrat ion of paramagnetic contrast. FINDINGS: CEREBRUM: The ventricles are normal for age. No evidence of midline shift, mass lesion, hemorrhage or acute in farction. No extraaxial fluid collections are seen. The pituitary gland and suprasellar cistern are normal in configuration. WHITE MATTER: No significant signal abnormalities are seen in the white matter. POSTERIOR FOSSA: The cerebellum and brainstem are intact. The 4th ventricle is midline. The cerebellopontine angle is unremarkable. The cerebellar tonsils are normal in position. DIFFUSION IMAGING: No focal areas of restricted diffusion are seen. No evidence of acute infarction. EXTRACRANIAL: The visualized portions of the orbits and paranasal sinuses are unremarkable. POST-CONTRAST: No abnormal areas of parenchymal or dural enhancement. No evidence of blood-brain barrier breakdown. CONCLUSION: No acute disease. Ezekiel Davies MD on January 15, 2018 at 19:09 Board Certified Radiologist. This report was verified electronically.
--- NOTE | 2018-01-15 19:25 | RADRPT ---
EXAM DATE/TIME: 01/15/2018 17:49 COMPARISON: CT BRAIN W/O CONTRAST, January 14, 2018, 23:25. MRI BRAIN W & W/O CONTRAST, January 15, 2018, 17:49. INDICATIONS : CVA. Clot. Headache. CONTRAST: 20 cc Omniscan (gadodiamide) IV MEDICAL HISTORY : Seizures. Hypertension. Gastroesophageal reflux disease. SURGICAL HISTORY : Appendectomy. ENCOUNTER: Initial ACUITY: 1 day PAIN SCORE: 6/10 LOCATION: Head. FINDINGS: The superior and inferior sagittal sinuses are patent. The straight sinus is patent. The right transv erse and sigmoid sinus and internal jugular vein are patent. The left transverse sinus is seen. It ap pears small. The left sigmoid sinus and left internal jugular vein are not seen. CONCLUSION: Small left transverse sinus and lack of visualization of the left sigmoid sinus and left internal jug ular vein. These are likely small structures. The superior sagittal sinus primarily fills the right t ransverse sinus. Ezekiel Davies MD on January 15, 2018 at 19:19 Board Certified Radiologist. This report was verified electronically.
[2018-01-15 21:45] LABS: FOLATE 12.1 NG/ML (3.1-17.5); FREE T4 1.09 NG/DL (0.76-1.46)
--- NOTE | 2018-01-15 23:10 | RADRPT ---
EXAM DATE/TIME: 01/15/2018 22:12 Caution: Report not yet finalized and possibly incomplete! [facility] COMPARISON: No previous studies available for comparison. INDICATIONS : CVA MEDICAL HISTORY : Hypertension. Seizures. SURGICAL HISTORY : Appendectomy ENCOUNTER: Initial ACUITY: 2 days PAIN SCORE: 0/10 LOCATION: Bilateral neck PEAK SYSTOLIC VELOCITIES (cm/sec): ICA/CCA RATIO: Right:<<0.7>> Left:<<1.1>> ICA: Right:<<58>> Left:<<88>> CCA: Right:<<88>> Left:<<81>> ECA: Right:<<121>> Left:<<88>> VERTEBRAL: Right:<<43>> antegrade Left:<<35>> antegrade Elevated flow velocities and ICA/CCA ratios have been found to correlate with increased degrees of vessel stenosis, calculated as percentage of diameter relative to a normal segment of distal ICA/CCA FINDINGS: RIGHT CAROTID: No significant stenosis is visualized. The waveforms are within normal limits. LEFT CAROTID: There is mild calcified plaque at the carotid bulb region. No significant stenosis is visualized. Th e waveforms are within normal limits. VERTEBRAL ARTERIES: Antegrade flow is seen in both vertebral arteries. MISCELLANEOUS: None. CONCLUSION: Mild plaque at the left carotid bulb region without a significant stenosis seen throughout the study. Ezekiel Davies MD on January 15, 2018 at 22:52
[2018-01-15 23:35] LABS: RHEUMATOID FACTOR SCREEN POSITIVE (NEGATIVE)
[2018-01-16] VITALS (12 sets, daily range): BP systolic 117–180; BP diastolic 94–117; PULSE 73–86; RESP 18–20; TEMP 97.6–99.3; O2SAT 95–100
[2018-01-16] MEDS: ACETAMIN 325 MG/BUTALBITAL 50 MG/CAFFEINE 40 MG TAB PO PRN ×3 (02:43→20:23)
[2018-01-16] MEDS: LORazepam 1 MG TAB PO PRN ×2 (02:43→20:34)
[2018-01-16] MEDS: cloNIDine HCL 0.1 MG TAB PO PRN ×2 (02:43→20:23)
[2018-01-16] MEDS: SODIUM CHLOR 0.9% 1000 ML INJ 1,000 ML IV SCH ×2 (02:44→08:15)
--- NOTE | 2018-01-16 07:50 | HHI.PR ---
Subjective Remarks 114/111 Objective Vital Signs Date Time Temp Pulse Resp B/P (MAP) Pulse Ox O2 Delivery O2 Flow Rate FiO2 01/16/18 05:26 77 20 159/111 (127) 95 01/16/18 03:39 99.3 80 20 117/114 (115) 98 01/15/18 23:53 99.9 82 01/15/18 23:53 99.9 82 16 164/108 (126) 97 01/15/18 20:01 98.8 72 16 148/96 (113) 99 01/15/18 15:49 98 01/15/18 15:00 81 18 150/95 (113) 98 Room Air 01/15/18 12:00 80 18 149/91 (110) 99 01/15/18 11:00 91 18 160/104 (122) 98 01/15/18 10:00 82 18 162/100 (120) 98 01/15/18 08:40 82 163/102 (122) 01/15/18 08:00 72 18 194/110 (138) 98 Room Air Result Diagram: 01/14/18214401/14/182144 Objective Remarks awake sstomach non tender speecha nd face nl moves all ok Assessment and Plan Assessment and Plan imp mri/a/v nl labs nl us neg bp stil lup wilhelm still but better than yest c/o abd pain defer to med team ok dc neurowise after bp down to 120/70 and if eeg done Ananda Menjivar MD Jan 16, 2018 07:50
[2018-01-16] MEDS: levETIRAcetam 500 MG TAB PO SCH ×2 (08:15→20:23)
[2018-01-16] MEDS: SODIUM CHLORIDE 0.9% FLUSH 10 ML FLUSH IV FLUSH SCH ×2 (08:15→20:24)
[2018-01-16] MEDS: hydrALAZINE HCL 10 MG TAB PO PRN ×2 (09:38→22:35)
[2018-01-16 09:54] LABS: AUTOMATED NEUTROPHIL # 5.5 TH/MM3 (1.8-7.7); BASOPHIL % 0.2 % (0.0-2.0); EOSINOPHIL % 0.1 % (0.0-4.0); HEMATOCRIT 45.8 % (35.0-46.0); HEMOGLOBIN 15.6 GM/DL (11.6-15.3); LYMPH % 24.2 % (9.0-44.0); MEAN CELL VOLUME 96.2 FL (80.0-100.0); MEAN CORPUSCULAR HEMOGLOBIN 32.7 PG (27.0-34.0); MEAN PLATELET VOLUME 7.8 FL (7.0-11.0); MONO % 11.1 % (0.0-8.0); MONOCYTE # 0.9 TH/MM3 (0-0.9); NEUT % 64.4 % (16.0-70.0); PLATELET COUNT 286 TH/MM3 (150-450); RED BLOOD COUNT 4.76 MIL/MM3 (4.00-5.30); RED CELL DISTRIBUTION WIDTH 13.8 % (11.6-17.2); WHITE BLOOD COUNT 8.5 TH/MM3 (4.0-11.0)
[2018-01-16 10:23] LABS: BICARBONATE 25.5 MEQ/L (21.0-32.0); CREATININE 0.67 MG/DL (0.50-1.00)
--- NOTE | 2018-01-16 14:43 | MG ---
cc: Brendon Sin MD, PhD Test #[id number] TECHNIQUE": A 17-channel EEG. DESCRIPTION: The background rhythm reveals a symmetrical alpha rhythm, frequency 8-9 Hz. Amplitude is about 20 microvolts. There are no lateralizing features seen and no epileptiform discharges are present. Photic stimulation is not done. INTERPRETATION: This is a normal EEG. Brendon Sin MD, PhD MONY/SB , 02:30 PM , 02:41 PM
[2018-01-16] MEDS ORDERED: FUROSEMIDE 20 MG/2 ML VIAL IV PUSH ONE (15:30)
[2018-01-16] MEDS ORDERED: POTASSIUM CHLORIDE 10 MEQ CONTROLLED RELEASE TAB PO ONE (15:30)
--- NOTE | 2018-01-16 17:01 | HHI.PR ---
Subjective Remarks Patient says she is feeling all right. Reports headache continues. Denies any chest pain or shortness of breath Objective Vital Signs Date Time Temp Pulse Resp B/P (MAP) Pulse Ox O2 Delivery O2 Flow Rate FiO2 01/16/18 16:10 97.6 78 20 140/99 (113) 97 01/16/18 12:12 97.7 82 18 130/94 (106) 98 01/16/18 10:39 20 01/16/18 09:22 152/103 (119) 01/16/18 07:55 97.7 73 18 153/106 (122) 98 01/16/18 05:26 77 20 159/111 (127) 95 01/16/18 03:39 99.3 80 20 117/114 (115) 98 01/16/18 01:59 79 01/15/18 23:53 99.9 82 01/15/18 23:53 99.9 82 16 164/108 (126) 97 01/15/18 20:01 98.8 72 16 148/96 (113) 99 Result Diagram: 01/16/18 0744 01/16/18 0744 Objective Remarks GENERAL: Patient lying in bed. Appears comfortable. SKIN: Warm and dry. HEAD: Normocephalic. EYES: No scleral icterus. No injection or drainage. NECK: Supple, trachea midline. No JVD. CARDIOVASCULAR: Regular rate and rhythm without murmurs, gallops, or rubs. RESPIRATORY: Breath sounds equal bilaterally. No accessory muscle use. GASTROINTESTINAL: Abdomen soft, non-tender, nondistended. MUSCULOSKELETAL: No cyanosis, or edema. BACK: Nontender without obvious deformity. No CVA tenderness. A/P Assessment and Plan //Headaches: Patient admits to having a "mass in the back of the lobe of her brain ". Pt did have an MRI in nov of this year which showed " Patchy areas of abnormal parenchymal brain signal intensity similar in appearance, however more extensive than on prior MRIs". I have consulted neurology for further assistance. Patient may have a history of migraine headaches and she does have photophobia associated with nausea vomiting with the headache. Denies any fevers or chills. Patient does have a history of seizure disorder. I will start her on fioricet prn and see if this helps. Appreciate input from neurology. CT head no acute intracranial disease. = Headaches improving. Appreciate neurology assistance //Seizure disorder: Continue Keppra //Hypertensive urgency: vasotec and hydralazine prn. started on her amlodipine 10mg po daily = Improved. Will discontinue IV fluids which she has been on. Blood pressure still in the 140 systolic. Will give single dose of IV Lasix. //Suspected alcohol withdrawal. EtOH dependence although she only admits to 1-2 beers a month. CIWA protocol in place = On CIWA protocol. Start Librium taper. //n/v: resolved. zofran prn. CT scan abd/pelvix showed no acute inflammatory process. //DVT proph: lovenox/early ambulation Discharge Planning If blood pressure improves, can likely discharge home Miles Rios MD Jan 16, 2018 17:01
[2018-01-16] MEDS ORDERED: PANT40TA3 PO (17:08)
[2018-01-16] MEDS ORDERED: METO25TA3 PO (17:08)
[2018-01-16] MEDS ORDERED: AMLO10 PO (17:08)
[2018-01-16] MEDS ORDERED: CHLO5CAP4 PO (17:08)
[2018-01-16] MEDS ORDERED: LEVE500 PO (17:08)
[2018-01-16] MEDS ORDERED: ASPI81TA23 PO (17:08)
[2018-01-16] MEDS ORDERED: Triamterene-Hctz 37.5-25 Mg PO (17:08)
[2018-01-16] MEDS ORDERED: THIAMINE HCL 100 MG TAB PO ONE (17:30)
[2018-01-16] MEDS ORDERED: LISINOPRIL 5 MG TAB PO ONE (23:15)
[2018-01-17] MEDS ORDERED: ZOLPIDEM TARTRATE 5 MG TAB PO ONE (00:15)
[2018-01-17 01:21] VITALS: BP 158/102; TEMP 99.5
[2018-01-17 03:14] VITALS: BP 155/105; PULSE 85; RESP 20; TEMP 99.3; O2SAT 98
[2018-01-17] MEDS: ACETAMIN 325 MG/BUTALBITAL 50 MG/CAFFEINE 40 MG TAB PO PRN ×2 (03:24→10:31)
[2018-01-17] MEDS ORDERED: traMADol HCL 50 MG TAB PO ONE (04:00)
[2018-01-17 07:09] LABS: AUTOMATED NEUTROPHIL # 5.3 TH/MM3 (1.8-7.7); BASOPHIL % 0.3 % (0.0-2.0); EOSINOPHIL % 0.1 % (0.0-4.0); HEMATOCRIT 46.8 % (35.0-46.0); HEMOGLOBIN 16.1 GM/DL (11.6-15.3); LYMPH % 24.6 % (9.0-44.0); LYMPHOCYTE # 2.2 TH/MM3 (1.0-4.8); MEAN CELL VOLUME 96.7 FL (80.0-100.0); MEAN CORPUSCULAR HEMOGLOBIN 33.3 PG (27.0-34.0); MEAN CORPUSCULAR HGB CONC 34.4 % (32.0-36.0); MEAN PLATELET VOLUME 7.8 FL (7.0-11.0); MONO % 15.1 % (0.0-8.0); MONOCYTE # 1.3 TH/MM3 (0-0.9); NEUT % 59.9 % (16.0-70.0); PLATELET COUNT 277 TH/MM3 (150-450); RED BLOOD COUNT 4.84 MIL/MM3 (4.00-5.30); RED CELL DISTRIBUTION WIDTH 13.6 % (11.6-17.2); WHITE BLOOD COUNT 8.9 TH/MM3 (4.0-11.0)
[2018-01-17 07:20] LABS: ALBUMIN 3.5 GM/DL (3.4-5.0); BICARBONATE 23.7 MEQ/L (21.0-32.0); CALCIUM 9.2 MG/DL (8.5-10.1); CREATININE 0.74 MG/DL (0.50-1.00); MAGNESIUM 1.9 MG/DL (1.5-2.5); PHOSPHORUS 2.4 MG/DL (2.5-4.9)
[2018-01-17 07:47] VITALS: BP 188/119; PULSE 106; RESP 18; TEMP 98.8; O2SAT 99
[2018-01-17] MEDS: levETIRAcetam 500 MG TAB PO SCH (08:01)
[2018-01-17] MEDS: SODIUM CHLORIDE 0.9% FLUSH 10 ML FLUSH IV FLUSH SCH (08:02)
[2018-01-17] MEDS ORDERED: cloNIDine HCL 0.1 MG TAB PO SCH (09:00)
[2018-01-17] MEDS ORDERED: LISINOPRIL 5 MG TAB PO SCH (09:00)
[2018-01-17] MEDS ORDERED: LABETALOL HCL 100 MG TAB PO ONE ×2 (09:15→11:45)
[2018-01-17 09:52] VITALS: BP 161/107; PULSE 92; RESP 20; O2SAT 97
[2018-01-17 11:32] VITALS: BP 138/88; PULSE 70; RESP 18; TEMP 97.8; O2SAT 98
[2018-01-17 12:46] VITALS: BP 107/75; PULSE 93; RESP 18; O2SAT 98
[2018-01-17] MEDS ORDERED: METO25TA3 PO (15:18)
[2018-01-17] MEDS ORDERED: LISI-519 PO (15:18)
[2018-01-17] MEDS ORDERED: LABE100T2 PO (15:18)
[2018-01-17] MEDS ORDERED: LABETALOL HCL 100 MG TAB PO SCH ×2 (21:00)
--- NOTE | 2018-01-19 08:29 | HHI.DS ---
Discharge Summary Admission Date Jan 15, 2018 at 04:59 Discharge Date: Jan 17, 2018 Admitting Diagnosis uncontrolled HTN; alcohol gastritis Brief History - From Admission Patient is a 52-year-old female with past medical history of hypertension ( noncompliant with BP meds) chronic headaches occurring once a month, seizure disorder presented to the emergency room last night because she has been having severe nausea and vomiting and having multiple episodes of nonbloody emesis. Patient states this occurs to her once a month. She has a history of seizures for which she takes medication. Patient admits to me that she stopped taking her BP meds because they make her "pass out". Patient states her headache currently is a 10 out of 10. She states she has this questionable mass in the back of her lobe of her brain. She denies seeing a neurologist for her headaches. She states she stopped taking the BP meds in November. Currently her nausea and vomiting has resolved however she does have the headache with photophobia. She does not recall having a seizure episode last night. She lives alone. She states she comes often to the emergency room for this problem she lives in [facility] and usually goes to the hospital close by. She denies ever being diagnosed with migraines. CBC/BMP: 01/17/18 0600 01/17/18 0600 Significant Findings Laboratory Tests Test 01/17/18 06:00 01/17/18 11:40 Hemoglobin 16.1 GM/DL (11.6-15.3) Hematocrit 46.8 % (35.0-46.0) Monocytes (%) (Auto) 15.1 % (0.0-8.0) Monocytes # (Auto) 1.3 TH/MM3 (0-0.9) Phosphorus Level 2.4 MG/DL (2.5-4.9) Sodium Level 135 MEQ/L (136-145) Estimat Glomerular Filtration Rate 83 ML/MIN (>89) Urine Barbiturates Screen POS (NEG) Urine Benzodiazepines Screen POS (NEG) Imaging Last Impressions Head Magnetic Resonance Angiography 01/15/18 9933 Signed Impressions: Service Date/Time: December 17:49 - CONCLUSION: No acute disease. Ezekiel Davies MD Brain MRI 01/15/18 1557 Signed Impressions: Service Date/Time: December 17:49 - CONCLUSION: No acute disease. Eezkiel Davies MD Head/Brain Mag Res Venography 01/15/18 0000 Signed Impressions: Service Date/Time: December 17:49 - CONCLUSION: Small left transverse sinus and lack of visualization of the left sigmoid sinus and left internal jugular vein. These are likely small structures. The superior sagittal sinus primarily fills the right transverse sinus. Ezekiel Davies MD Head CT 01/14/18 0000 Signed Impressions: Service Date/Time: Sunday, January 14, 2018 23:25 - CONCLUSION: No acute intracranial disease. Adarsh Rogers MD Abdomen/Pelvis CT 01/14/18 0000 Signed Impressions: Service Date/Time: Sunday, January 14, 2018 23:28 - CONCLUSION: 1. No acute inflammatory process. 2. Minimal irregular density right lower lobe. Followup CT chest in 6 months recommended for stability. Adarsh Rogers MD Hospital Course //Headaches: Patient admits to having a "mass in the back of the lobe of her brain ". Pt did have an MRI in nov of this year which showed " Patchy areas of abnormal parenchymal brain signal intensity similar in appearance, however more extensive than on prior MRIs". I have consulted neurology for further assistance. Patient may have a history of migraine headaches and she does have photophobia associated with nausea vomiting with the headache. Denies any fevers or chills. Patient does have a history of seizure disorder. I will start her on fioricet prn and see if this helps. Appreciate input from neurology. CT head no acute intracranial disease. = Headaches improving. Appreciate neurology assistance //Seizure disorder: Continue Keppra //Hypertensive urgency: vasotec and hydralazine prn. started on her amlodipine 10mg po daily = Improved. Will discontinue IV fluids which she has been on. Blood pressure still in the 140 systolic. Will give single dose of IV Lasix. //Suspected alcohol withdrawal. EtOH dependence although she only admits to 1-2 beers a month. CIWA protocol in place = On CIWA protocol. Start Librium taper. //n/v: resolved. zofran prn. CT scan abd/pelvix showed no acute inflammatory process. //DVT proph: lovenox/early ambulation Discharge Planning If blood pressure improves, can likely discharge home Pt Condition on Discharge: Good Discharge Disposition: Discharge Home Discharge Time: > 30 minutes Discharge Instructions DIET: Follow Instructions for: Heart Healthy Diet Activities you can perform: Regular-No Restrictions Follow up Referrals: Neurology - 1 Week with Ananda Menjivar MD PCP Follow-up - 1 Week with Juanyeric Jimenez New Medications: Amlodipine (Norvasc) 10 Mg Tab 10 MG PO DAILY for Blood Pressure Management for 30 Days, #30 TAB Chlordiazepoxide HCl (Chlordiazepoxide HCl) 5 Mg Capsule 5 MG PO DIRECTED for Alcohol Detox, #18 CAP Take THREE Times daily for 3 Days, then TWICE daily for 3 days, then ONCE a day for 3 Days. Labetalol (Labetalol) 100 Mg Tab 200 MG PO Q12HR for Blood Pressure Management for 30 Days, TAB Lisinopril (Lisinopril) 5 Mg Tab 5 MG PO DAILY for Blood Pressure Management for 30 Days, #30 TAB Changed Medications: Metoprolol Tartrate (Metoprolol Tartrate) 25 Mg Tab 12.5 MG PO Q12HR for HTN for 30 Days, TAB (Changed from: 25 MG) [Triamterene-Hctz 37.5-25 Mg] () 1 CAP CAP 1 CAP PO DAILY for HTN for 30 Days (Changed from: [Triamterene-Hctz 37.5-25 Mg] (Dyazide 37.5-25 Mg) 1 CAP CAP 1 Cap PO DAILY HTN) Continued Medications: Aspirin DR (Aspirin EC) 81 Mg Tabdr 81 MG PO DAILY for Blood Clot Prevention, #30 TAB (This prescription has been renewed) Levetiracetam (Keppra) 500 Mg Tab 500 MG PO Q12HR for Seizure Control for 30 Days, #60 TAB (This prescription has been renewed) Pantoprazole (Pantoprazole) 40 Mg Tab 40 MG PO DAILY for gastrtis for 30 Days, #30 TAB (This prescription has been renewed) Discontinued Medications: Chlordiazepoxide HCl (Chlordiazepoxide HCl) 25 Mg Capsule 25 MG PO BID for ETO for 3 Days, #6 TAB 0 Refills Miles Rios MD Jan 19, 2018 08:29
== END 2018-01-17 17:04 | disposition home or self-care (01) ==
LOC: NEPC 20:08 → NEDA 01-15 04:59 → NEPGCP 01-15 15:55
PROVIDERS: ADMIT Internal Medicine; ATTEND Internal Medicine
DX: I10 Essential (primary) hypertension (principal); K29.20 Alcoholic gastritis without bleeding; F10.239 Alcohol dependence with withdrawal, unspecified; R51 Headache; R10.13 Epigastric pain; R11.2 Nausea with vomiting, unspecified; G40.909 Epilepsy, unspecified, not intractable, without status epilepticus; I16.0 Hypertensive urgency; K21.9 Gastro-esophageal reflux disease without esophagitis; M25.569 Pain in unspecified knee; M79.1 Myalgia; Z91.14 Patient's other noncompliance with medication regimen; Z91.19 Patient's noncompliance with other medical treatment and regimen; E78.00 Pure hypercholesterolemia, unspecified; F17.210 Nicotine dependence, cigarettes, uncomplicated
CPT/HCPCS: 70450; 70544; 70546; 70553; 74177; 80048; 80053; 80069; 80307; 81001; 82140; 82746; 83690; 83735; 83921; 84207; 84425; 84439; 84443; 84702; 84703; 85025; 85610; 85652; 85730; 86038; 86140; 86430; 93880; 95819; 96361; 96374; 96375; 96376; 97163; 99285; A9579; C9113; G0378; G8987; G8988; J0360; J1940; J2405; J7030; Q9967

== ENCOUNTER 2018-01-19 12:28 | Emergency (ER) | payer SELFPAY ==
[~2018-01-19] VITALS: Ht 177.8 cm; Wt 80.5 kg
[~2018-01-19 12:28] MED LIST changes: +AMLO10 PO; -CHLO25CA9 PO; +CHLO5CAP4 PO; +LABE100T2 PO; +LISI-519 PO; -OXYC1CAP PO
[2018-01-19 12:37] VITALS: BP 89/51; PULSE 79; RESP 20; TEMP 97.8; O2SAT 98
--- NOTE | 2018-01-19 14:13 | RADRPT ---
EXAM DATE/TIME: 01/19/2018 13:22 [facility] COMPARISON: CHEST PA & LAT, August 22, 2016, 23:59. INDICATIONS : Shortness of breath. MEDICAL HISTORY : Cardiovascular disease. Hypertension Seizures. SURGICAL HISTORY : None. ENCOUNTER: Initial ACUITY: 1 day PAIN SCORE: 0/10 LOCATION: Bilateral chest FINDINGS: PA and lateral views of the chest demonstrate the lungs to be symmetrically aerated without evidence of mass, infiltrate or effusion. The cardiomediastinal contours are unremarkable. Osseous structure s are intact. CONCLUSION: No acute cardiopulmonary disease. Ananda Watson MD on January 19, 2018 at 14:11 Board Certified Radiologist. This report was verified electronically.
[2018-01-19 14:28] LABS: AUTOMATED NEUTROPHIL # 3.7 TH/MM3 (1.8-7.7); BASOPHIL % 0.5 % (0.0-2.0); EOSINOPHIL % 0.7 % (0.0-4.0); HEMATOCRIT 46.6 % (35.0-46.0); HEMOGLOBIN 15.9 GM/DL (11.6-15.3); LYMPH % 31.4 % (9.0-44.0); LYMPHOCYTE # 2.1 TH/MM3 (1.0-4.8); MEAN CELL VOLUME 95.3 FL (80.0-100.0); MEAN CORPUSCULAR HEMOGLOBIN 32.6 PG (27.0-34.0); MEAN CORPUSCULAR HGB CONC 34.2 % (32.0-36.0); MEAN PLATELET VOLUME 7.6 FL (7.0-11.0); MONO % 13.3 % (0.0-8.0); MONOCYTE # 0.9 TH/MM3 (0-0.9); NEUT % 54.1 % (16.0-70.0); PLATELET COUNT 309 TH/MM3 (150-450); RED BLOOD COUNT 4.89 MIL/MM3 (4.00-5.30); RED CELL DISTRIBUTION WIDTH 13.7 % (11.6-17.2); WHITE BLOOD COUNT 6.8 TH/MM3 (4.0-11.0)
[2018-01-19 14:37] LABS: PROTHROMBIN TIME - PATIENT 10.6 SEC (9.8-11.6)
[2018-01-19] MEDS ORDERED: SODIUM CHLOR 0.9% 1000 ML INJ 1,000 ML IV ONE ×2 (14:45→15:45)
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
[2018-01-19 14:59] VITALS: BP 93/58; PULSE 74; RESP 18; O2SAT 100
[2018-01-19 15:03] LABS: BICARBONATE 23.4 MEQ/L (21.0-32.0); BLOOD UREA NITROGEN 20 MG/DL (7-18); CALCIUM 9.4 MG/DL (8.5-10.1); CHLORIDE 98 MEQ/L (98-107); CREATININE 1.73 MG/DL (0.50-1.00); GLOMERULAR FILTRATION RATE 31 ML/MIN (>89); GLUCOSE,RANDOM 97 MG/DL (74-106); MAGNESIUM 2.3 MG/DL (1.5-2.5); SODIUM (NA) 132 MEQ/L (136-145)
[2018-01-19 15:04] LABS: ALT (GPT) 57 U/L (10-53); AST (GOT) 45 U/L (15-37)
[2018-01-19 15:08] LABS: ALKALINE PHOSPHATASE 90 U/L (45-117); TOTAL BILIRUBIN ADULT 0.5 MG/DL (0.2-1.0); TOTAL PROTEIN 9.6 GM/DL (6.4-8.2); TROPONIN I LESS THAN 0.02 NG/ML (0.02-0.05)
[2018-01-19 15:30] VITALS: BP 101/60; PULSE 72; RESP 18; O2SAT 100
--- NOTE | 2018-01-20 16:44 | EKG ---
Date Performed: 01/19/2018 Time Performed: 14:02:35 PTAGE: 52 years EKG: Sinus rhythm RIGHT ATRIAL ENLARGEMENT Since previous tracing, no significant change noted ABNORMAL ECG PREVIOUS TRACING : 12/10/2017 09.55 DOCTOR: Montana Torres Interpretating Date/Time 01/20/2018 16:42:10
== END 2018-01-19 17:06 | disposition home or self-care (01) ==
LOC: NEPE 12:28
DX: E86.0 Dehydration (principal); I95.9 Hypotension, unspecified; F17.200 Nicotine dependence, unspecified, uncomplicated; I10 Essential (primary) hypertension; K21.9 Gastro-esophageal reflux disease without esophagitis; R94.31 Abnormal electrocardiogram [ECG] [EKG]; Z79.899 Other long term (current) drug therapy; Z91.14 Patient's other noncompliance with medication regimen
CPT/HCPCS: 71046; 80053; 82550; 83735; 84484; 85025; 85610; 85730; 93005; 96360; 99285; J7030

== ENCOUNTER 2018-01-31 07:49 | Inpatient (IN) | payer OTHER ==
[2018-01-31] VITALS (11 sets, daily range): BP systolic 118–203; BP diastolic 74–125; PULSE 79–105; RESP 16–22; TEMP 98–98.7; O2SAT 95–100
[~2018-01-31] VITALS: Ht 177.8 cm; Wt 80.8 kg
[2018-01-31] MEDS ORDERED: IOHEXOL 350 MG/ML 10 ML VIAL (for RAD DIAG) IVCONTRAST ONE (07:50)
[2018-01-31] MEDS ORDERED: SODIUM CHLOR 0.9% 1000 ML INJ 1,000 ML IV SCH (08:07)
[2018-01-31] MEDS ORDERED: SODIUM CHLORIDE 0.9% FLUSH 10 ML FLUSH IV FLUSH PRN (08:15)
[2018-01-31] MEDS ORDERED: ONDANSETRON HCL 4 MG/2 ML VIAL IVP ONE ×2 (08:15→10:15)
[2018-01-31] MEDS ORDERED: LORazepam 2 MG/ML VIAL IV PUSH ONE (08:15)
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
[2018-01-31 08:42] LABS: CHLORIDE 105 MEQ/L (98-107); SODIUM (NA) 138 MEQ/L (136-145)
[2018-01-31 08:43] LABS: AUTOMATED NEUTROPHIL # 3.5 TH/MM3 (1.8-7.7); BASOPHIL # 0.1 TH/MM3 (0-0.2); BASOPHIL % 1.3 % (0.0-2.0); EOSINOPHIL # 0.1 TH/MM3 (0-0.4); HEMATOCRIT 45.2 % (35.0-46.0); HEMOGLOBIN 15.1 GM/DL (11.6-15.3); LYMPH % 26.9 % (9.0-44.0); LYMPHOCYTE # 1.5 TH/MM3 (1.0-4.8); MEAN CELL VOLUME 94.7 FL (80.0-100.0); MEAN CORPUSCULAR HEMOGLOBIN 31.7 PG (27.0-34.0); MEAN CORPUSCULAR HGB CONC 33.5 % (32.0-36.0); MEAN PLATELET VOLUME 7.4 FL (7.0-11.0); MONO % 9.5 % (0.0-8.0); MONOCYTE # 0.5 TH/MM3 (0-0.9); NEUT % 61.3 % (16.0-70.0); PLATELET COUNT 292 TH/MM3 (150-450); RED BLOOD COUNT 4.77 MIL/MM3 (4.00-5.30); RED CELL DISTRIBUTION WIDTH 13.1 % (11.6-17.2); WHITE BLOOD COUNT 5.7 TH/MM3 (4.0-11.0)
[2018-01-31 08:46] LABS: ALBUMIN 3.6 GM/DL (3.4-5.0); BICARBONATE 24.6 MEQ/L (21.0-32.0); CALCIUM 9.6 MG/DL (8.5-10.1); GLUCOSE,RANDOM 132 MG/DL (74-106)
[2018-01-31 08:47] LABS: BLOOD UREA NITROGEN 12 MG/DL (7-18); PROTHROMBIN TIME - PATIENT 10.5 SEC (9.8-11.6)
[2018-01-31 08:49] LABS: ALT (GPT) 126 U/L (10-53); AST (GOT) 115 U/L (15-37); GLOMERULAR FILTRATION RATE 89 ML/MIN (>89)
[2018-01-31 08:50] LABS: TOTAL BILIRUBIN ADULT 0.4 MG/DL (0.2-1.0); TOTAL PROTEIN 9.4 GM/DL (6.4-8.2)
[2018-01-31 08:52] LABS: ALKALINE PHOSPHATASE 133 U/L (45-117)
--- NOTE | 2018-01-31 09:16 | RADRPT ---
EXAM DATE/TIME: 01/31/2018 08:49 [facility] COMPARISON: CT ABDOMEN & PELVIS W CONTRAST, January 14, 2018, 23:28. INDICATIONS : Right upper quadrant and epigastric pain. IV CONTRAST: 95 cc Omnipaque 350 (iohexol) IV ORAL CONTRAST: No oral contrast ingested. RADIATION DOSE: 8.65 CTDIvol (mGy) MEDICAL HISTORY : Gastroesophageal reflux disease. Hypertension. Seizures.Alcohol abuse. SURGICAL HISTORY : Appendectomy. ENCOUNTER: Initial ACUITY: 1 day PAIN SCALE: 7/10 LOCATION: Right upper quadrant TECHNIQUE: Volumetric scanning of the abdomen and pelvis was performed. Using automated exposure control and ad justment of the mA and/or kV according to patient size, radiation dose was kept as low as reasonably achievable to obtain optimal diagnostic quality images. DICOM format image data is available electro nically for review and comparison. FINDINGS: The lower lungs are clear. There is no pericardial effusion The liver and spleen are unremarkable. Gallbladder is small and contracted without stones. The pancreas and adrenal glands are unremarkable There is symmetrical renal function There is no ascites or adenopathy The pelvic contents are unremarkable. Review of bone windows reveals only degenerative changes. CONCLUSION: Gallbladder small and contracted without obvious stones. No other etiology for the abdominal pain is identified.. Cruz Alicia MD FACR on January 31, 2018 at 9:12 Board Certified Radiologist. This report was verified electronically.
[2018-01-31] MEDS ORDERED: MORPHINE SULFATE 4 MG/ML INJ IV PUSH ONE (10:15)
[2018-01-31] MEDS ORDERED: ONDANSETRON HCL 4 MG/2 ML VIAL IM ONE (10:15)
--- NOTE | 2018-01-31 11:13 | RADRPT ---
EXAM DATE/TIME: 01/31/2018 10:26 [facility] COMPARISON: No previous studies available for comparison. INDICATIONS : Altered mental status, vomiting, lethargy. RADIATION DOSE: 50.33 CTDIvol (mGy) MEDICAL HISTORY : Seizures. Hypertension. Alcohol abuse. SURGICAL HISTORY : None. ENCOUNTER: Initial ACUITY: 1 day PAIN SCALE: 0/10 LOCATION: Bilateral cranial TECHNIQUE: Multiple contiguous axial images were obtained of the head. Using automated exposure control and adj ustment of the mA and/or kV according to patient size, radiation dose was kept as low as reasonably a chievable to obtain optimal diagnostic quality images. DICOM format image data is available electro nically for review and comparison. FINDINGS: CEREBRUM: The ventricles are normal for age. No evidence of midline shift, cerebral edema or blood products. No extra-axial fluid collections are seen. POSTERIOR FOSSA: The cerebellum and brainstem are intact. The 4th ventricle is midline. The cerebellar pontine angle is unremarkable. EXTRACRANIAL: The visualized portion of the orbits is intact. SKULL: The calvaria is intact. No evidence of skull fracture. CONCLUSION: Negative. There is no abnormal enhancement on this postcontrast CT. Cruz Alicia MD FACR on January 31, 2018 at 11:11 Board Certified Radiologist. This report was verified electronically.
[2018-01-31] MEDS ORDERED: LABETALOL HCL 100 MG/20 ML VIAL IV PUSH ONE (11:45)
[2018-01-31] MEDS ORDERED: NIFEdipine 10 MG CAP PO ONE (13:15)
[2018-01-31] MEDS ORDERED: cloNIDine HCL 0.2 MG TAB PO ONE (13:15)
[2018-01-31] MEDS: SODIUM CHLOR 0.9% 1000 ML INJ 1,000 ML IV SCH ×2 (15:39→23:50)
--- NOTE | 2018-01-31 15:56 | HHI.HP ---
[facility] Primary Care Physician No Primary Care Physician Admission Diagnosis intract N/V,hypertensive urgency,headache,abd pain Diagnoses: Chief Complaint: High blood pressure, vomiting Travel History International Travel<30 Days: No Contact w/Intl Traveler <30 Da: No Traveled to Known Affected Are: No History of Present Illness 52-year-old white female being admitted for hypertensive emergency. Patient is a poor historian. Patient was in her usual state of health until around 3 AM this morning when she woke up with a sudden satiation resulting in her to vomit. Reports having a headache and subsequent abdominal pain. Says that she feels like there is a burning sensation in her upper abdomen. denies any dysuria or diarrhea. She says she checked her blood pressure at home and was noted for the systolic to be in the 200s thus decided to come to the emergency department. Patient denies drinking any alcohol or any illicit drug use. In the ER her blood pressures remained uncontrolled. CT abdomen was unremarkable. Drug screen was unremarkable. However the patient was noted to have multiple rounds of emesis and dry heaving with no bloody emesis. Emergency room nurse tells me that the patient Is not fully cooperative as she was trying to induce vomiting by sticking fingers down her throat after taking blood pressure pills in the emergency department. When I see the patient she actually was drinking bottle of Gatorade and is asking for more Gatorade. Pt was admitted a few months ago for similar presentation, was discharged with BP and antiepilectic scripts for which she is not compliant with. Past Family Social History Past Medical History Social history: Substance abuse in the past. 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 Lives by herself in an RV with a dog. Past medical history significant for seizure per the patient. She says she is not compliant with any prescribed medications anymore because she does not think they do anything. Family history is unremarkable as the patient says she does not know her family health history. Allergies: Coded Allergies: No Known Allergies (Verified Allergy, Unknown, 01/31/18) Physical Exam Vital Signs Vital Signs Date Time Temp Pulse Resp B/P (MAP) Pulse Ox O2 Delivery O2 Flow Rate FiO2 01/31/18 15:07 99 16 153/98 (116) 100 Room Air 01/31/18 14:52 105 18 /116 99 Room Air 01/31/18 13:51 103 18 201/118 (145) 96 Room Air 01/31/18 12:41 82 18 203/123 (149) 97 Room Air 01/31/18 11:35 97 16 193/125 (147) 97 Room Air 01/31/18 11:18 16 01/31/18 10:50 99 18 200/122 (148) 95 Room Air 01/31/18 07:50 98.0 103 22 127/105 (112) 97 01/31/18 07:50 22 99 Room Air Physical Exam VS: afebrile GENERAL: Sleeping comfortably, appears to be in no acute distress, until I awaken her up and then she seems to be in a state of misery, constantly tossing and turning try to find a comfortable position SKIN: Warm and dry. EYES: No scleral icterus. No injection or drainage. ENT: No nasal bleeding or discharge. Mucous membranes pink and moist. CARDIOVASCULAR: Regular rate and rhythm. no murmurs RESPIRATORY: No accessory muscle use. Clear to auscultation. Breath sounds equal bilaterally. GASTROINTESTINAL: Has epigastric tenderness to palpation, no suprapubic tenderness palpation, abdomen is otherwise soft, nondistended Extremities: No clubbing, cyanosis, or edema. No obvious deformities. MUSCULOSKELETAL: adequate muscle bulk and tone for age and habitus NEUROLOGICAL: Awake and alert. No obvious cranial nerve deficits. No facial droop nor slurred speech noted. PSYCHIATRIC: Appropriate mood and affect; insight and judgment normal. Laboratory Laboratory Tests Test 01/31/18 08:25 01/31/18 09:50 White Blood Count 5.7 Red Blood Count 4.77 Hemoglobin 15.1 Hematocrit 45.2 Mean Corpuscular Volume 94.7 Mean Corpuscular Hemoglobin 31.7 Mean Corpuscular Hemoglobin Concent 33.5 Red Cell Distribution Width 13.1 Platelet Count 292 Mean Platelet Volume 7.4 Neutrophils (%) (Auto) 61.3 Lymphocytes (%) (Auto) 26.9 Monocytes (%) (Auto) 9.5 Eosinophils (%) (Auto) 1.0 Basophils (%) (Auto) 1.3 Neutrophils # (Auto) 3.5 Lymphocytes # (Auto) 1.5 Monocytes # (Auto) 0.5 Eosinophils # (Auto) 0.1 Basophils # (Auto) 0.1 CBC Comment DIFF FINAL Differential Comment Prothrombin Time 10.5 Prothromb Time International Ratio 1.0 Activated Partial Thromboplast Time 27.4 Blood Urea Nitrogen 12 Creatinine 0.70 Random Glucose 132 Total Protein 9.4 Albumin 3.6 Calcium Level 9.6 Alkaline Phosphatase 133 Aspartate Amino Transf (AST/SGOT) 115 Alanine Aminotransferase (ALT/SGPT) 126 Total Bilirubin 0.4 Sodium Level 138 Potassium Level 3.5 Chloride Level 105 Carbon Dioxide Level 24.6 Anion Gap 8 Estimat Glomerular Filtration Rate 89 Lipase 239 Ethyl Alcohol Level LESS THAN 3 Urine Opiates Screen NEG Urine Barbiturates Screen NEG Urine Amphetamines Screen NEG Urine Benzodiazepines Screen NEG Urine Cocaine Screen NEG Urine Cannabinoids Screen NEG Result Diagram: 01/31/1825 01/31/18 0825 Imaging Last Impressions Abdomen/Pelvis CT 01/31/18 0807 Signed Impressions: Service Date/Time: Wednesday, January 31, 2018 08:49 - CONCLUSION: Gallbladder small and contracted without obvious stones. No other etiology for the abdominal pain is identified.. Cruz Alicia MD FACR Head CT 01/31/18 0000 Signed Impressions: Service Date/Time: Wednesday, January 31, 2018 10:26 - CONCLUSION: Negative. There is no abnormal enhancement on this postcontrast CT. Cruz Alicia MD FACR Caprini VTE Risk Assessment Caprini VTE Risk Assessment: Mod/High Risk (score >= 2) Caprini Risk Assessment Model Point Value = 1 Point Value = 2 Point Value = 3 Point Value = 5 Age 41-60 Minor surgery BMI > 25 kg/m2 Swollen legs Varicose veins or History of unexplained or recurrent spontaneous Oral contraceptives or hormone replacement Sepsis (< 1 month) Serious lung disease, including pneumonia (< 1 month) Abnormal pulmonary function Acute myocardial infarction Congestive heart failure (< 1 month) History of inflammatory bowel disease Medical patient at bed rest Age 61-74 Arthroscopic surgery Major open surgery (> 45 min) Laparoscopic surgery (> 45 min) Malignancy Confined to bed (> 72 hours) Immobilizing plaster cast Central venous access Age >= 75 History of VTE Family history of VTE Factor V Leiden Prothrombin [id number] Lupus anticoagulant Anticardiolipin antibodies Elevated serum homocysteine Heparin-induced thrombocytopenia Other congenital or acquired thrombophilia Stroke (< 1 month) Elective arthroplasty Hip, pelvis, or leg fracture Acute spinal cord injury (< 1 month) Prophylaxis Regimen Total Risk Factor Score Risk Level Prophylaxis Regimen 0-1 Low Early ambulation 2 Moderate Order ONE of the following: *Sequential Compression Device (SCD) *Heparin 5000 units SQ BID 3-4 Higher Order ONE of the following medications: *Heparin 5000 units SQ TID *Enoxaparin/Lovenox 40 mg SQ daily (WT < 150 kg, CrCl > 30 mL/min) *Enoxaparin/Lovenox 30 mg SQ daily (WT < 150 kg, CrCl > 10-29 mL/min) *Enoxaparin/Lovenox 30 mg SQ BID (WT < 150 kg, CrCl > 30 mL/min) AND/OR *Sequential Compression Device (SCD) 5 or more Highest Order ONE of the following medications: *Heparin 5000 units SQ TID (Preferred with Epidurals) *Enoxaparin/Lovenox 40 mg SQ daily (WT < 150 kg, CrCl > 30 mL/min) *Enoxaparin/Lovenox 30 mg SQ daily (WT < 150 kg, CrCl > 10-29 mL/min) *Enoxaparin/Lovenox 30 mg SQ BID (WT < 150 kg, CrCl > 30 mL/min) AND *Sequential Compression Device (SCD) Assessment and Plan Assessment and Plan Nausea vomiting abdominal pain -Hepatitis C -CMP otherwise is unremarkable. Ultrasound is unremarkable -cath UA -IV fluids, IV antiemetics Hypertensive emergency -With a headache this qualifies as the emergency, will start a clonidine patch and use IV labetalol as needed to bring blood pressure down -We will start p.o. blood pressure medication; non compliant at home Seizure disorder -Resume home Keppra which the patient has not been taking Physician Certification 2 Midnight Certification Type: Admission for Inpatient Services Order for Inpatient Services The services are ordered in accordance with Medicare regulations or non- Medicare payer requirements, as applicable. In the case of services not specified as inpatient-only, they are appropriately provided as inpatient services in accordance with the 2-midnight benchmark. Estimated LOS (days): 2 2 days is the estimated time the patient will need to remain in the hospital, assuming treatment plan goals are met and no additional complications. Post-Hospital Plan: Home Easton Tavera MD Jan 31, 2018 15:56
[2018-01-31] MEDS ORDERED: ONDANSETRON ODT 4 MG TAB PO PRN (16:00)
[2018-01-31] MEDS ORDERED: cloNIDine HCL 0.1 MG/24 HR PATCH T-DERMAL ONE (16:00)
[2018-01-31] MEDS ORDERED: FAMOTIDINE 20 MG/2 ML VIAL IV PUSH SCH (16:00)
[2018-01-31] MEDS ORDERED: PANTOPRAZOLE SOD 40 MG DELAYED RELEASE TAB PO ONE (16:30)
[2018-01-31 16:49] LABS: BILIRUBIN, URINE NEG (NEG); BLOOD, URINE NEG (NEG); GLUCOSE,URINE NEG (NEG); KETONE, URINE NEG (NEG); NITRITE,URINE NEG (NEG); PH, URINE 6.5 (5.0-8.5); URINE COLOR YELLOW (YELLW/STRAW); URINE LEUKOCYTE ESTERASE NEG (NEG)
[2018-01-31] MEDS ORDERED: PANTOPRAZOLE SODIUM 40 MG VIAL IV PUSH SCH (17:00)
[2018-01-31 17:26] LABS: WBC, URINE 0-2 /hpf (0-5)
[2018-01-31] MEDS: LISINOPRIL 5 MG TAB PO SCH (19:00)
[2018-01-31] MEDS: levETIRAcetam 500 MG TAB PO SCH (20:19)
[2018-02-01] VITALS (8 sets, daily range): BP systolic 118–157; BP diastolic 65–102; PULSE 62–78; RESP 19–28; TEMP 98.3–98.5; O2SAT 97–98
[2018-02-01 06:37] LABS: CHLORIDE 105 MEQ/L (98-107); SODIUM (NA) 138 MEQ/L (136-145)
[2018-02-01 07:03] LABS: ALBUMIN 3.1 GM/DL (3.4-5.0); ALKALINE PHOSPHATASE 96 U/L (45-117); ALT (GPT) 87 U/L (10-53); AST (GOT) 64 U/L (15-37); BICARBONATE 25.9 MEQ/L (21.0-32.0); BLOOD UREA NITROGEN 9 MG/DL (7-18); CALCIUM 8.6 MG/DL (8.5-10.1); CREATININE 0.62 MG/DL (0.50-1.00); GLOMERULAR FILTRATION RATE 102 ML/MIN (>89); GLUCOSE,RANDOM 98 MG/DL (74-106); TOTAL BILIRUBIN ADULT 0.5 MG/DL (0.2-1.0); TOTAL PROTEIN 7.9 GM/DL (6.4-8.2)
[2018-02-01] MEDS ORDERED: PANTOPRAZOLE SOD 40 MG DELAYED RELEASE TAB PO SCH (09:00)
[2018-02-01] MEDS: levETIRAcetam 500 MG TAB PO SCH (09:00)
[2018-02-01] MEDS: LISINOPRIL 5 MG TAB PO SCH (11:21)
[2018-02-01] MEDS ORDERED: ACETAMINOPHEN 325 MG TAB PO PRN (13:15)
--- NOTE | 2018-02-01 13:54 | HHI.DCPOC ---
Discharge Care Plan Diagnosis: (1) Hepatitis C virus (2) Seizure (3) Hypertensive urgency Goals to Promote Your Health * To prevent worsening of your condition and complications * To maintain your health at the optimal level Directions to Meet Your Goals Take your medications as prescribed Follow your dietary instruction Follow activity as directed Keep your appointments as scheduled Take your immunizations and boosters as scheduled If your symptoms worsen call your PCP, if no PCP go to Urgent Care Center or Emergency Room Smoking is Dangerous to Your Health. Avoid second hand smoke Call the 24-hour hour crisis hotline for domestic abuse at Easton Tavera MD Feb 01, 2018 13:54
[2018-02-01] MEDS ORDERED: CARV3.12 PO (13:59)
--- NOTE | 2018-02-01 14:16 | HHI.PR ---
Subjective Remarks RN denies any medical deterioration since last night. Pt denies having further abd pain. She says the doctor has not "seen me" since being admitted but when I tell her that I saw her yesterday evening, she says she does not remember me. Objective Vital Signs Date Time Temp Pulse Resp B/P (MAP) Pulse Ox O2 Delivery O2 Flow Rate FiO2 02/01/18 08:23 98.5 02/01/18 08:00 78 02/01/18 04:15 98.3 78 20 136/96 (109) 97 02/01/18 04:00 76 02/01/18 00:00 98.4 74 19 118/65 (82) 98 02/01/18 00:00 74 01/31/18 21:00 82 01/31/18 20:15 98.7 82 22 121/74 (90) 97 01/31/18 18:44 79 16 118/80 (93) 98 Room Air 01/31/18 17:00 01/31/18 17:00 98.3 95 18 143/98 (113) 96 Room Air 01/31/18 15:07 99 16 153/98 (116) 100 Room Air 01/31/18 14:52 105 18 /116 99 Room Air I/O 01/31/18 01/31/18 01/31/18 02/01/18 02/01/18 02/01/18 07:00 15:00 23:00 07:00 15:00 23:00 Intake Total 1000 ml 1600 ml Output Total 1000 ml Balance 1000 ml 600 ml Intake IV Total 1000 ml 1600 ml Output Urine Total 1000 ml # Voids 2 Result Diagram: 01/31/18 0825 02/01/18 0610 Objective Remarks Abdomen soft, nontender, nondistended Very confrontational mood; eventually calms down Lungs are clear, unlabored breathing A/P Assessment and Plan Nausea/vomiting abdominal pain -Hepatitis C -stable at this time, can follow up with GI outpatient. -Resolved, LFTs stabilizing Hypertensive emergency -Resolved Seizure disorder -Patient refusing home Tayo saying she only has had one seizure per year. I counseled her extensively saying that the neurologist that last saw her from [place] recommended this nonetheless. Patient's blood pressure stable. Patient has been very argumentative, is very upset about not understanding how her blood pressure can be so labile and what she can do to manage the stability of her hepatic function. I informed her extensively that blood pressure can change number operator time especially when the body is under stress and that close monitoring under the care of her primary care provider is absolutely essential to stabilize those pressures. I also informed her to refrain from alcohol at all costs to minimize any further hepatic damage. I informed her that she can follow-up with gastroenterology outpatient. Patient has been maximal benefit from hospitalization and is clinically stable for discharge. In total, the time spent with the patient was over 35 minute of which more than 50% of patient care was spent discussing his or her care and counseling the patient and corresponding caregivers. Easton Tavera MD Feb 01, 2018 14:16
--- NOTE | 2018-02-01 14:27 | EKG ---
Date Performed: 01/31/2018 Time Performed: 16:38:39 PTAGE: 52 years EKG: Sinus rhythm POSSIBLE RIGHT ATRIAL ENLARGEMENT BORDERLINE ECG Since PREVIOUS TRACING , no significant change noted PREVIOUS TRACIN01/19/2018 14.02 DOCTOR: Dina Cope Interpretating Date/Time 02/01/2018 14:26:12
== END 2018-02-01 18:11 | disposition home or self-care (01) | DRG 305 ==
LOC: PHED 07:49 → PHEDA 14:26 → PHICU 20:18
PROVIDERS: ADMIT Hospitalist; ATTEND Hospitalist
DX: I16.1 Hypertensive emergency (principal); B19.20 Unspecified viral hepatitis C without hepatic coma; G40.909 Epilepsy, unspecified, not intractable, without status epilepticus; R51 Headache; R11.2 Nausea with vomiting, unspecified; F17.210 Nicotine dependence, cigarettes, uncomplicated; I10 Essential (primary) hypertension; K21.9 Gastro-esophageal reflux disease without esophagitis; M54.9 Dorsalgia, unspecified; M25.569 Pain in unspecified knee; G89.29 Other chronic pain; Z91.14 Patient's other noncompliance with medication regimen
CPT/HCPCS: 70460; 74177; 80053; 80307; 81001; 82977; 83690; 84484; 85025; 85610; 85730; 93005; 96374; 96375; 96376; C9113; J2060; J2270; J2405; J7030; Q9967